=== PATIENT | female | born 1990 | race Caucasian/White ===

== ENCOUNTER 2019-11-15 20:53 | Emergency (ER) | payer MEDICAID, SELFPAY ==
[2019-11-15 21:40] VITALS: BP 99/64; PULSE 67; RESP 14; TEMP 36.7; O2SAT 97; BMI 18.3
--- NOTE | 2019-11-15 21:58 | XR_ITS ---
WS: [id number] Right hip, AP and frog leg, AP pelvis, 11/15/2019 Clinical Data: injury Comparison: Right thigh and femur, 01/24/2011. Findings: No fractures or dislocations are seen. The hip joints are intact. The soft tissues are are not remark able. The pelvis is not remarkable. The SI joints and pubic symphysis are normal XR/XR hip RT 2-3V wo/w pel* [id number] Impression: Negative right hip and pelvis.
--- NOTE | 2019-11-15 21:58 | XR_ITS ---
WS: [id number] Right shoulder, 3 views, 11/15/2019 Clinical Data: injury Comparison: None. Findings: No fractures or dislocations are seen. The AC joint is normal. The adjacent right clavicle, right sca pula and ribs are normal. The soft tissues are unremarkable. XR/XR shoulder RT min 2V* [id number] Impression: Negative right shoulder.
[2019-11-15 22:53] VITALS: RESP 18
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
[2019-11-15] MEDS: ketorolac 60 mg/2 mL INJ IM (23:09)
== END 2019-11-15 23:17 | disposition home or self-care (01) ==
PROVIDERS: Emergency Provider Physician Assistant; PCP Electrodiagnostic Medicine
DX: M25.551 Pain in right hip (principal); M25.511 Pain in right shoulder; Y04.2XXA Assault by strike against or bumped into by another person, initial encounter; Y99.0 Civilian activity done for income or pay
CPT/HCPCS: 12345; 73030; 73502; 96372; 99281; 99283; J1885

== ENCOUNTER 2019-12-11 14:15 | Emergency (ER) | payer MEDICAID, SELFPAY ==
[2019-12-11 14:17] VITALS: BP 118/68; PULSE 79; RESP 16; TEMP 36.5; O2SAT 100; BMI 18.3
--- NOTE | 2019-12-11 14:23 | XRR_ITS ---
PROCEDURE INFORMATION: Exam: XR Right Shoulder Exam date and time: 12/11/2019 2:42 PM Age: 29 years old Clinical indication: Pain; Shoulder; Right TECHNIQUE: Imaging protocol: XR Right shoulder. Views: 2 or more views. COMPARISON: CR XR shoulder RT min 2V* [id number] 11/15/2019 10:07 PM FINDINGS: Bones/joints: There is no evidence for acute fracture or malalignment. Soft tissues: Normal. XR/XR shoulder RT min 2V* [id number] IMPRESSION: No acute findings.
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
[2019-12-11 15:10] VITALS: BP 102/73; PULSE 80; RESP 16; O2SAT 100
== END 2019-12-11 15:10 | disposition home or self-care (01) ==
PROVIDERS: Emergency Provider Family Medicine; PCP Electrodiagnostic Medicine
DX: M54.10 Radiculopathy, site unspecified (principal); F17.290 Nicotine dependence, other tobacco product, uncomplicated
CPT/HCPCS: 12345; 73030; 99281; 99282

== ENCOUNTER 2019-12-25 11:31 | Emergency (ER) | payer MEDICAID, SELFPAY ==
[2019-12-25 11:54] VITALS: BP 116/81; PULSE 75; RESP 14; TEMP 36.8; O2SAT 100; BMI 18.3
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
[2019-12-25 13:04] VITALS: PULSE 68; RESP 16; O2SAT 100
[2019-12-25 14:10] VITALS: PULSE 84; RESP 16; O2SAT 100
== END 2019-12-25 14:10 | disposition home or self-care (01) ==
PROVIDERS: Emergency Provider Nurse Practitioner Family; PCP Electrodiagnostic Medicine
DX: S60.012A Contusion of left thumb without damage to nail, initial encounter (principal); F17.200 Nicotine dependence, unspecified, uncomplicated; V89.2XXA Person injured in unspecified motor-vehicle accident, traffic, initial encounter
CPT/HCPCS: 12345; 73130; 99281; 99283

== ENCOUNTER 2020-01-11 22:11 | Emergency (ER) | payer MEDICAID, SELFPAY ==
[2020-01-11 22:31] VITALS: BP 102/60; PULSE 74; RESP 14; TEMP 36.5; O2SAT 100; BMI 18.3
--- NOTE | 2020-01-11 22:37 | ED_ITS ---
HPI - Extremity Problem General: Chief complaint: Extremity Injury, Lower Stated complaint: R LEG PAIN Time Seen by Provider: 01/11/20 22:37 Source: patient Mode of arrival: ambulatory Limitations: no limitations History of Present Illness: HPI Narrative: Patient comes in for injury to the right lower extremity and the left knee. Patient reports she was climbing on a gate and the cow hit the gait pitting her legs between the gate and wall. Patient appears well. Patient reports pain and difficulty ambulating on it due to pain. Complaint: extremity pain Review of Systems General: Reports: 10 or more systems reviewed and unremarkable except in HPI and below Musc: Reports: extremity pain PFS ED PFSH: Social History Smoking and tobacco status: light tobacco smoker e-cigarettes Physical Exam Const: COMMON NORMALS: no acute distress and patient oriented x3 GENERAL APPEARANCE: cooperative HENMT: COMMON NORMALS: normocephalic and Normal external nose present HEAD & SCALP: normal to inspection and normocephalic NOSE: Normal external nose present Eye: GENERAL EYE: appearance normal, both eyes and all related structures Neck/C-Spine: COMMON NORMALS: full ROM Chest: COMMONS NORMALS: normal inspection of the chest Resp: COMMON NORMALS: normal respiratory effort EFFORT & INSPECTION: Yes able to speak in complete sentences Cardio: COMMON NORMALS: regular rate and regular rhythm RATE: regular rate RHYTHM: regular rhythm GI: COMMON NORMALS: non-tender Back/Pelvis: COMMON NORMALS: thoracic and lumbar spine normal to inspection Extremity: NARRATIVE EXTREMITY EXAM: Patient has an area of ecchymosis approximately 4 cm to the lateral right thigh, a 6 cm area of ecchymosis to the right medial calf, and an abrasion with a 3 cm area of ecchymosis to the left anterior knee. Patient has range of motion but reports pain with movement of the both legs. Patient has been ambulatory on the extremities. Neuro: COMMON NORMALS: patient oriented x3 and moves all extremities Psych: COMMON NORMALS: mental status grossly normal and cooperative Skin: COMMON NORMALS: no rashes or lesions noted GENERAL SKIN EXAM: no rashes or lesions noted Course Vital Signs: Vital signs: Vital Signs Temperature 97.7 F 01/11/20 22:31 Pulse Rate 74 01/11/20 22:41 Respiratory Rate 14 01/11/20 22:41 Blood Pressure 102/60 01/11/20 22:41 Pulse Oximetry 100 01/11/20 22:41 MDM - Extremity (Nontraumatic) MDM Narrative: Medical decision making narrative: Patient comes in today for evaluation of injury sustained when a cow trapped her between a gate. Patient has bruising to bilateral extremities on the lateral right thigh, medial right calf, and the patellar region of the left knee. Patient moves extremities well. Patient does report pain with ambulation. Differential diagnosis includes contusion, fracture, sprain. X-rays were negative for any fractures. Patient has contusions to bilateral legs. Reviewed exam with patient with recommendations for treatment and follow-up. Patient reported understanding. Discharge Plan Discharge Patient Disposition: Home Clinical Impression: Contusion of multiple sites Condition: Stable Prescriptions: No Action fluticasone propionate [Flonase Allergy Relief] 50 mcg/actuation spray,suspe nsion 2 spray INTRANASAL DAILY Qty: 16 RF: 0 diclofenac sodium 75 mg tablet,delayed release (DR/EC) 75 mg PO Q12H PRN (Reason: pain) Qty: 20 RF: 0 Medrol (Naveed) 4 mg tablets,dose pack See Rx Instructions .ROUTE .COMPLEX Qty: 21 RF: 0 tizanidine 4 mg capsule 4 mg PO Q6H PRN (Reason: muscle spasticity) Qty: 20 RF: 0 Discharge Orders: Discharge Order (Routine); Ordered 01/11/20 Ordered By: Vikas Almonte Referrals: Jonnie Sotelo DO [Primary Care Provider] - Patient Instructions: Contusion in Adults (ED) Activity Restrictions/Additional Instructions: Activity as tolerated. Ice or heat for discomfort. Acetaminophen and ibuprofen for pain. Follow-up with primary care for further treatment. Return to the emergency department for new concerns. Discharge Date/Time: 01/11/20 23:39 Coding Level of Care Code ED Staff Registered Nurse for Cecilia Fwmorenita Exam Comprehensive
[2020-01-11 22:41] VITALS: BP 102/60; PULSE 74; RESP 14; O2SAT 100
--- NOTE | 2020-01-11 22:43 | XR_ITS ---
WS: [id number] Left knee, 3 views, 01/11/2020 Clinical Data: injury Comparison: Left knee, 06/10/2012. Findings: No fractures or dislocations are seen. The joint spaces are normal. The patella is intact. The soft t issues are unremarkable. XR/XR knee LT 3V* [id number] Impression: Negative left knee.
--- NOTE | 2020-01-11 22:43 | XR_ITS ---
WS: [id number] Right leg including the tibia and fibula, AP and lateral, 01/11/2020 Clinical Data: injury Comparison: None. Findings: No fractures or dislocations are seen. The tibia and fibula are intact. The soft tissues are normal. XR/XR tibia fibula RT 2V [id number] Impression: Negative for fracture.
--- NOTE | 2020-01-11 22:43 | XR_ITS ---
WS: [id number] Right femur and thigh, AP and lateral, 01/11/2020 Clinical Data: injury Comparison: None. Findings: No fractures or dislocations are seen. The soft tissues are normal. The visualized knee shows no abno rmalities. The right hip is normal. XR/XR femur RT min 2V* [id number] Impression: Negative right femur and thigh.
== END 2020-01-11 23:39 | disposition home or self-care (01) ==
PROVIDERS: Emergency Provider Nurse Practitioner Family; PCP Electrodiagnostic Medicine
DX: S70.11XA Contusion of right thigh, initial encounter (principal); S80.11XA Contusion of right lower leg, initial encounter; S80.02XA Contusion of left knee, initial encounter; W23.0XXA Caught, crushed, jammed, or pinched between moving objects, initial encounter; F17.290 Nicotine dependence, other tobacco product, uncomplicated
CPT/HCPCS: 12345; 73552; 73562; 73590; 99281; 99282

== ENCOUNTER 2020-01-28 19:30 | Emergency (ER) | payer MEDICAID, SELFPAY ==
[2020-01-28 19:38] VITALS: BP 105/71; PULSE 66; RESP 14; TEMP 36.9; O2SAT 97; BMI 17.4
[2020-01-28 21:09] VITALS: BP 102/65; PULSE 74; RESP 18; O2SAT 99
--- NOTE | 2020-01-28 21:19 | W.ED.GENADLT ---
HPI - General Adult General: Chief complaint: General Medical Stated complaint: RASH Time Seen by Provider: 01/28/20 20:10 Source: patient Mode of arrival: ambulatory Limitations: no limitations History of Present Illness: HPI narrative: No new clothes, lotions, soaps, or anything else. She denies any difficulty breathing or throat closing. complaint: rash Onset (ago): day(s) (1) Location: abdomen and lower extremity Radiation: non-radiation Severity: mild Quality: other (itching) Pain Consistency: constant Relieving factors: none Exacerbating factors: none Associated symptoms: Reports rash; Deny chest pain, confusion, cough, diaphoresis, decreased appetite, dyspnea, fevers/chills, headache(s), malaise, nausea, palpitations, seizures, short of breath, syncope, vomiting or weakness Treatments prior to arrival: other (benadryl) Review of Systems General: Reports: 10 or more systems reviewed and unremarkable except in HPI and below Const: Denies: malaise or diaphoresis Eyes: Denies: change in vision or blurry vision ENMT: Denies: throat pain, enlarged tonsils, odynophagia, hoarseness, mouth pain or swelling of lips/tongue Card: Denies: chest pain, palpitations or syncope Resp: Denies: dyspnea GI: Denies: nausea or vomiting : Denies: flank pain, difficulty voiding, dysuria, urinary frequency, urinary urgency or urinary hesitancy Musc: Denies: neck pain, back pain or extremity swelling Skin/Breast: Reports: rash Neuro: Denies: headache(s) or confusion Endo: Denies: polyuria, polydipsia or tired all the time [facility] ED PFSH: Social History Smoking and tobacco status: light tobacco smoker e-cigarettes Physical Exam Const: COMMON NORMALS: no acute distress, average body habitus, patient oriented x3, no limitations, healthy appearing, alert and well nourished HENMT: COMMON NORMALS: normocephalic, atraumatic and moist oral mucous membranes HEAD & SCALP: normocephalic and atraumatic Neck/C-Spine: COMMON NORMALS: no meningeal signs and no JVD Resp: COMMON NORMALS: normal respiratory effort, No retractions, No use of accessory muscles, clear to auscultation bilaterally and percussion normal AUSCULTATION: clear to auscultation bilaterally PERCUSSION: percussion normal Cardio: COMMON NORMALS: no JVD, regular rate, regular rhythm, S1 normal heart sound present, S2 normal heart sound present, No gallops present (Cardio), No clicks present (Cardio), No murmurs present (Cardio), No rub (Cardio) and Peripheral pulses 2+ throughout RATE: regular rate RHYTHM: regular rhythm HEART SOUNDS: S1 normal heart sound present and S2 normal heart sound present PERIPHERAL PULSES: Peripheral pulses 2+ throughout GI: COMMON NORMALS: Normal to inspection, nondistended, normoactive bowel sounds present, Soft to palpation, non-tender, No hepatosplenomegaly present, no masses and no bruits PALPATION: Yes Soft to palpation and Yes No hepatosplenomegaly present Extremity: COMMON NORMALS: normal to inspection, full ROM, capillary refill normal, no calf tenderness and no pedal edema Neuro: COMMON NORMALS: patient oriented x3 SENSORIUM/ORIENTATION: Yes alert MENINGEAL SIGNS: Yes no meningeal signs Skin: COMMON NORMALS: no rashes or lesions noted, no wounds, turgor normal, no jaundice, no petechiae and no mottling GENERAL SKIN EXAM: no rashes or lesions noted and turgor normal Course ED course: Patient with clinical features of contact dermatitis that is uncomplicated. She is given a dose of oral corticosteroid today and discharged home on the same. Vital Signs: Vital signs: Vital Signs Temperature 98.4 F 01/28/20 19:38 Pulse Rate 93 01/28/20 21:29 Respiratory Rate 14 01/28/20 21:29 Blood Pressure 122/89 01/28/20 21:29 Pulse Oximetry 100 01/28/20 21:29 MDM - General Adult MDM Narrative: Medical decision making narrative: The patient who came to the ED with clinical features consistent with contact dermatitis and she is discharged home on oral steroids. Medical Records: Attestation: I reviewed the patient's medical records. Discharge Plan Discharge Patient Disposition: Home Clinical Impression: Contact dermatitis Qualifiers: Contact dermatitis type: unspecified Contact dermatitis trigger: unspecified trigger Qualified Code(s): L25.9 - Unspecified contact dermatitis, unspecified cause Condition: Stable Prescriptions: New prednisone 20 mg tablet 60 mg PO DAILY 5 Days Qty: 15 RF: 0 Continued fluticasone propionate [Flonase Allergy Relief] 50 mcg/actuation spray,suspension 2 spray INTRANASAL DAILY Qty: 16 RF: 0 diclofenac sodium 75 mg tablet,delayed release (DR/EC) 75 mg PO Q12H PRN (Reason: pain) Qty: 20 RF: 0 tizanidine 4 mg capsule 4 mg PO Q6H PRN (Reason: muscle spasticity) Qty: 20 RF: 0 Discontinued methylprednisolone [Medrol (Naveed)] 4 mg tablets,dose pack See Rx Instructions .ROUTE .COMPLEX Qty: 21 RF: 0 Discharge Orders: Discharge Order (Routine); Ordered 01/28/20 Ordered By: Luis Sheehan Referrals: Jonnie Sotelo, [Primary Care Provider] - 1-3 days Discharge Diet: Usual diet Discharge Activity: Increase activity as tolerated Patient Instructions: Dermatitis (Contact) Activity Restrictions/Additional Instructions: Return for any new or worsening symptoms. Follow up with your primary care provider within 3 days. Take the medications as prescribed. Discharge Date/Time: 01/28/20 21:30 Coding Level of Care Code ED Lay Out Machine Operator for Chg Fwd Exam Comprehensive
[2020-01-28] MEDS: predniSONE 20 mg Tablet 60 MG PO (21:25)
[2020-01-28 21:29] VITALS: BP 122/89; PULSE 93; RESP 14; O2SAT 100
== END 2020-01-28 21:30 | disposition home or self-care (01) ==
PROVIDERS: Emergency Provider Family Medicine; PCP Electrodiagnostic Medicine
DX: L25.9 Unspecified contact dermatitis, unspecified cause (principal); F17.290 Nicotine dependence, other tobacco product, uncomplicated
CPT/HCPCS: 12345; 99281; 99282; J7512

== ENCOUNTER 2020-04-07 13:36 | Emergency (ER) | payer BC, MEDICAID, SELFPAY ==
[2020-04-07 13:43] VITALS: BP 98/67; PULSE 78; RESP 14; TEMP 36.3; O2SAT 99
--- NOTE | 2020-04-07 13:53 | W.ED.NECK ---
HPI - Neck Pain/Injury General: Chief Complaint: Neck Pain/Injury Stated Complaint: neck pain, 2 days now Time Seen by Provider: 04/07/20 13:45 History of Present Illness: HPI Narrative: Patient complains about left shoulder pain trapezius pain. Just woke up with it that way couple days ago it is been sore. She is put a couple lidocaine patches on his helps denies any other problems injuries left eye is doing fine. complaint: upper back pain Onset (ago): day(s) Radiation: left shoulder Severity: mild Severity scale (1-10): 4 Quality: dull and aching Duration: constant Relieving factors: none Exacerbating factors: movement of neck Associated symptoms: Reports no associated symptoms; Denies headache(s) or nausea Treatments prior to arrival: other (Lidocaine patches) Review of Systems Const: Denies: fever(s), chills or body aches Eyes: Denies: change in vision or blurry vision ENMT: Denies: throat pain or nasal congestion Card: Denies: chest pain or dyspnea on exertion Resp: Denies: dyspnea, productive cough or non-productive cough GI: Denies: abdominal pain, nausea or vomiting Musc: Reports: neck pain and other (Shoulder pain left side); Denies: extremity pain Skin/Breast: Denies: rash Neuro: Denies: headache(s) Psych: Denies: anxiety or depression Suman/Lymph: Denies: easy bruising PFSH ED PFSH: Social History Smoking and tobacco status: former smoker Physical Exam Const: COMMON NORMALS: no acute distress Neck/C-Spine: CERVICAL SPINE: Yes pain with cervical ROM (Pulls in the left shoulder) with lateral flexion to the right, with lateral flexion to the left, with rotation to the right and with rotation to the left OTHER: Left trapezius is tender from the scapula to the AC area up to the base of neck Psych: COMMON NORMALS: mental status grossly normal Course Vital Signs: Vital signs: Vital Signs Temperature 97.3 F L 04/07/20 13:43 Pulse Rate 78 04/07/20 13:43 Respiratory Rate 14 04/07/20 13:43 Blood Pressure 98/67 04/07/20 13:43 Pulse Oximetry 99 04/07/20 13:43 Discharge Plan Discharge Condition: Good Prescriptions: No Action fluticasone propionate [Flonase Allergy Relief] 50 mcg/actuation spray,suspension 2 spray INTRANASAL DAILY Qty: 16 RF: 0 Control Pill PO RF: 0 cephalexin 500 mg capsule 500 mg PO Q12H Qty: 14 RF: 0 prednisone 20 mg tablet 40 mg PO DAILY 5 Days Qty: 10 RF: 0 Coding Level of Care Code ED Student Ministry Pastor for Cecilia Pierre
[2020-04-07 14:13] VITALS: RESP 16
--- NOTE | 2020-04-07 14:35 | PC.NURSE ---
Read and agree with assessment.
== END 2020-04-07 14:13 | disposition home or self-care (01) ==
PROVIDERS: Emergency Provider Nurse Practitioner Family; PCP Electrodiagnostic Medicine
DX: M25.512 Pain in left shoulder (principal); Z87.891 Personal history of nicotine dependence
CPT/HCPCS: 12345; 99281

== ENCOUNTER 2020-10-01 19:30 | Emergency (ER) | payer BC, MEDICAID, SELFPAY ==
[2020-10-01 19:49] VITALS: BP 99/66; PULSE 97; RESP 18; TEMP 36.7; O2SAT 98; BMI 20.7
[2020-10-01 20:12] VITALS: BP 107/68; PULSE 74; RESP 15; O2SAT 98
[2020-10-01 20:39] LABS: SARS Covid-2 Antigen Negative (Negative)
[2020-10-01 20:46] LABS: Basophils % 0.5 %; Eosinophils # 0.1 10^3/uL (0.0-0.8); Eosinophils % 0.6 %; Hematocrit 37.1 % (37.0-47.0); Lymphocytes # 1.2 10^3/uL (0.8-4.8); Lymphocytes % 14.1 %; Mean Corpuscular HGB Conc 32.3 g/dL (30.0-36.0); Mean Corpuscular Hemoglobin 27.7 pg (28.0-34.0); Mean Corpuscular Volume 85.7 fL (81-99); Mean Platelet Volume 10.6 fL (7.4-10.4); Monocytes # 0.6 10^3/uL (0.2-0.9); Monocytes % 6.9 %; Neutrophils # 6.84 10^3/uL (1.8-7.7); Neutrophils % 77.7 %; Nucleated Red Blood Cells % 0 %; Platelet Count 258 10^3/cmm (130-400); Red Blood Count 4.33 10^6/uL (4.1-5.3); Red Cell Distribution Width 13.5 % (12.1-15.1); White Blood Count 8.8 10^3/uL (4.0-10.0)
--- NOTE | 2020-10-01 20:50 | PC.NURSE ---
Verbal orders from Dr. Sheehan COVID precautions may be discontinued.
[2020-10-01] MEDS: sodium chloride 0.9% 1,000 ML 999 ML IV (20:54)
[2020-10-01] MEDS: promethazine 25 mg/mL SDV 1 mL IM (20:54)
[2020-10-01 20:58] VITALS: BP 99/74; PULSE 79; RESP 16; O2SAT 100
[2020-10-01 21:03] LABS: Alanine Aminotransferase 7 U/L (0-33); Albumin Level 4.2 g/dL (3.5-5.2); Alkaline Phosphatase 69 IU/L (35-105); Anion Gap 16.9 (5-19); Aspartate Amino Transferase 12 U/L (0-32); Blood Urea Nitrogen 7 mg/dL (6-20); C Reactive Protein 8.1 mg/L (0.0-4.9); Calcium 9.1 mg/dL (8.5-10.5); Carbon Dioxide 21 mmol/L (22-29); Chloride 101 mmol/L (98-107); Creatine Phosphokinase 53 U/L (26-192); Globulin 2.7 g/dL (1.3-4.6); Glomerular Filtration Rate 264.9 mL/min (90-130); Glucose 76 mg/dL (65-115); Osmolality Calculated 277 mOsm/kg (285-295); Potassium 3.9 mmol/L (3.5-5.1); Sodium 135 mmol/L (136-145); Total Bilirubin 0.6 mg/dL (0.15-1.2); Total Protein 6.9 g/dL (6.6-8.7)
--- NOTE | 2020-10-01 21:08 | W.ED.NAVMDI ---
HPI - Nausea/Vomiting/Diarrhea General: Chief complaint: Nausea/Vomiting/Diarrhea Stated complaint: \ Possible Covid Time Seen by Provider: 10/01/20 19:57 Source: patient and RN notes reviewed Mode of arrival: ambulatory Limitations: no limitations History of Present Illness: HPI Narrative: Patient is a 29-year-old female who is 11 weeks who presents to the emergency department with nausea and vomiting that started from about midnight early this morning. She has had multiple episodes of vomiting and is unable to keep anything down. 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 She got tested for COVID-19 earlier today but results are not available yet MD elicited complaint: nausea, vomiting and abdominal pain Onset (ago): hour(s) (20) Description of vomiting: food contents Associated nausea: Yes Associated abdominal pain: Yes Location of pain: RLQ Pain consistency: constant Exacerbating factors: none Relieving factors: none Associated symtoms: Reports nausea; Denies altered mental status, anxiety, bloating, change in vision, chest pain, cough, diaphoresis, decreased urine output, dizziness, dysuria, epistaxis, fatigue, fecal incontinence, fevers/chills, headache(s), anorexia, malaise, myalgias, numbness, palpitations, rash, short of breath, syncope, tenesmus, tinnitus or weakness Review of Systems General: Reports: 10 or more systems reviewed and unremarkable except in HPI and below Const: Denies: fatigue, malaise or diaphoresis Eyes: Denies: change in vision ENMT: Denies: tinnitus or epistaxis Card: Denies: chest pain, palpitations or syncope GI: Reports: nausea; Denies: bloating or fecal incontinence : Denies: dysuria Neuro: Denies: headache(s) or dizziness Psych: Denies: anxiety PFSH ED PFSH: Social History Smoking and tobacco status: former smoker Physical Exam Const: COMMON NORMALS: no acute distress, average body habitus, patient oriented x3, no limitations, healthy appearing, alert and well nourished EXAM LIMITATIONS: no altered mental status HENMT: COMMON NORMALS: normocephalic, atraumatic and moist oral mucous membranes HEAD & SCALP: normocephalic and atraumatic Eye: COMMON NORMALS: Equal, round and reactive pupils present, EOMs intact bilaterally, conjunctivae normal and no scleral icterus CONJUNCTIVA: Yes conjunctivae normal PUPIL: Yes Equal, round and reactive pupils present Neck/C-Spine: COMMON NORMALS: no meningeal signs and no JVD Resp: COMMON NORMALS: normal respiratory effort, No retractions, No use of accessory muscles, clear to auscultation bilaterally and percussion normal AUSCULTATION: clear to auscultation bilaterally PERCUSSION: percussion normal Cardio: COMMON NORMALS: no JVD, regular rate, regular rhythm, S1 normal heart sound present, S2 normal heart sound present, No gallops present (Cardio), No clicks present (Cardio), No murmurs present (Cardio), No rub (Cardio) and Peripheral pulses 2+ throughout RATE: regular rate RHYTHM: regular rhythm HEART SOUNDS: S1 normal heart sound present and S2 normal heart sound present PERIPHERAL PULSES: Peripheral pulses 2+ throughout GI: COMMON NORMALS: Normal to inspection, nondistended, normoactive bowel sounds present, Soft to palpation, non-tender, No hepatosplenomegaly present, no masses and no bruits PALPATION: Yes Soft to palpation and Yes No hepatosplenomegaly present Extremity: COMMON NORMALS: normal to inspection, full ROM, capillary refill normal, no calf tenderness and no pedal edema Neuro: COMMON NORMALS: patient oriented x3 SENSORIUM/ORIENTATION: Yes alert MENINGEAL SIGNS: Yes no meningeal signs Skin: COMMON NORMALS: no rashes or lesions noted, no wounds, turgor normal, no jaundice, no petechiae and no mottling GENERAL SKIN EXAM: no rashes or lesions noted and turgor normal Course Reevaluation(s): Reevaluation #1: Discussed her lab and imaging findings with her. Rapid Covid test was negative. Lab findings are unremarkable. Inflammatory markers only mildly elevated. We will treat as a case of a nonspecific viral illness or nonspecific case of nausea and vomiting. Phenergan has helped with her vomiting. We will discharge her home with a prescription for Phenergan. She voiced understanding and is in agreement with the plan. Time: 21:25 Vital Signs: Vital signs: Vital Signs Temperature 98.1 F 10/01/20 19:49 Pulse Rate 74 10/01/20 22:05 Respiratory Rate 15 10/01/20 22:05 Blood Pressure 99/69 10/01/20 22:05 Pulse Oximetry 100 10/01/20 22:05 MDM - Nausea/Vomiting/Diarrhea MDM Narrative: Medical decision making narrative: 29-year-old female patient who is about 11 weeks and who presents to the emergency department with nausea and vomiting that has been going on since last night. Rapid Covid test was negative, labs are unremarkable. She was given a liter of normal saline and intramuscular promethazine which resolved her symptoms. She is discharged home with a prescription for promethazine. Medical Records: Attestation: I reviewed the patient's medical records. Lab Data: Attestation: I reviewed the patient's lab results. Labs: Lab Results 10/01/20 10/01/20 10/01/20 Range/Units 20:06 20:41 20:41 WBC 8.8 (4.0-10.0) 10^3/ uL RBC 4.33 (4.1-5.3) 10^6/u L Hgb 12.0 (11.5-15.3) g/dL Hct 37.1 (37.0-47.0) % MCV 85.7 (81-99) fL MCH 27.7 L (28.0-34.0) pg MCHC 32.3 (30.0-36.0) g/dL RDW 13.5 (12.1-15.1) % Plt Count 258 (130-400) 10^3/c mm MPV 10.6 H (7.4-10.4) fL Neut % (Auto) 77.7 % Lymph % (Auto) 14.1 % [place] % (Auto) 6.9 % Eos % (Auto) 0.6 % Baso % (Auto) 0.5 % Neut # (Auto) 6.84 (1.8-7.7) 10^3/u L Lymph # (Auto) 1.2 (0.8-4.8) 10^3/u L [place] # (Auto) 0.6 (0.2-0.9) 10^3/u L Eos # (Auto) 0.1 (0.0-0.8) 10^3/u L Baso # (Auto) 0.0 (0.0-0.1) 10^3/u L Nucleated RBC % (a uto) 0 % Nucleated RBCs # 0.0 /100WBC Sodium 135 L (136-145) mmol/L Potassium 3.9 (3.5-5.1) mmol/L Chloride 101 (98-107) mmol/L Carbon Dioxide 21 L (22-29) mmol/L Anion Gap 16.9 (5-19) BUN 7 (6-20) mg/dL Creatinine 0.3 L (0.5-0.9) mg/dL GFR Calculation 264.9 H (90-130) mL/min Glucose 76 (65-115) mg/dL Calculated Osmolal ity 277 L (285-295) mOsm/k g Calcium 9.1 (8.5-10.5) mg/dL Total Bilirubin 0.6 (0.15-1.2) mg/dL AST 12 (0-32) U/L ALT 7 (0-33) U/L Alkaline Phosphata se 69 (35-105) IU/L Creatine Kinase 53 (26-192) U/L C-Reactive Protein 8.1 H (0.0-4.9) mg/L Total Protein 6.9 (6.6-8.7) g/dL Albumin 4.2 (3.5-5.2) g/dL Globulin 2.7 (1.3-4.6) g/dL Procalcitonin 0.03 (0-0.5) ng/mL SARS-CoV-2 Ag (Rap id) Negative (Negative) Discharge Plan Discharge Patient Disposition: Home Clinical Impression: Nausea & vomiting Qualifiers: Vomiting type: unspecified Vomiting Intractability: non-intractable Qualified Code(s): R11.2 - Nausea with vomiting, unspecified Condition: Stable Prescriptions: New promethazine 25 mg tablet 25 mg PO Q6H PRN (Reason: nausea and vomiting) Qty: 20 RF: 0 Continued fluticasone propionate 50 mcg/actuation [place],Suspension 1 spray INTRANASAL BID RF: 0 400 mcg Tablet,Chewable 1 tab PO DAILY RF: 0 albuterol sulfate [ProAir HFA] 90 mcg/actuation HFA aerosol inhaler 2 puff INHALATION Q4H PRN (Reason: Shortness Of Breath) RF: 0 Discharge Orders: Discharge ED (Routine); Ordered 10/01/20 Ordered By: Luis Sheehan Referrals: Jonnie Sotelo, [Primary Care Provider] - 1-3 days Discharge Diet: Usual diet Discharge Activity: Increase activity as tolerated Patient Instructions: Acute Nausea and Vomiting (ED) Activity Restrictions/Additional Instructions: Return for any new or worsening symptoms. Follow-up with your primary care provider within 3 days. Take the promethazine as needed for nausea or vomiting. Drink plenty of water to keep well-hydrated. Coding Level of Care Code ED Physical Therapy Coordinator for Chg Fwd Exam Comprehensive
[2020-10-01 21:10] LABS: Procalcitonin 0.03 ng/mL (0-0.5)
[2020-10-01 22:05] VITALS: BP 99/69; PULSE 74; RESP 15; O2SAT 100
== END 2020-10-01 22:07 | disposition home or self-care (01) ==
PROVIDERS: Nurse Practitioner Family; Emergency Provider Family Medicine; PCP Electrodiagnostic Medicine
DX: R11.2 Nausea with vomiting, unspecified (principal); Z87.891 Personal history of nicotine dependence; Z20.822 Contact with and (suspected) exposure to COVID-19
CPT/HCPCS: 80053; 82550; 84145; 85025; 86140; 87426; 96360; 96372; 99284; J2550; J7030

== ENCOUNTER → 2020-10-11 13:47 | Outpatient (BNVA) | payer BC, MEDICAID, SELFPAY | PROVIDERS: PCP Electrodiagnostic Medicine; Visit Provider Nurse Practitioner Women's Health | DX: Z34.90 Encounter for supervision of normal pregnancy, unspecified, unspecified trimester (principal) | CPT/HCPCS: 81000 ==

== ENCOUNTER → 2020-10-31 08:02 | Outpatient (BNVA) | payer BC, MEDICAID, SELFPAY | PROVIDERS: PCP Electrodiagnostic Medicine; Visit Provider Obstetrics & Gynecology | DX: O09.899 Supervision of other high risk pregnancies, unspecified trimester (principal) | CPT/HCPCS: 80307; 81000; 84443; 86803 ==

== ENCOUNTER → 2020-11-06 10:11 | Outpatient (BNVA) | payer BC, MEDICAID, SELFPAY | PROVIDERS: PCP Electrodiagnostic Medicine; Visit Provider Nurse Practitioner Women's Health | DX: O09.899 Supervision of other high risk pregnancies, unspecified trimester (principal); Z3A.00 Weeks of gestation of pregnancy not specified | CPT/HCPCS: 81000 ==

== ENCOUNTER 2020-11-19 18:11 | Emergency (ER) | payer BC, MEDICAID, SELFPAY ==
[2020-11-19 19:04] VITALS: BP 105/67; PULSE 90; RESP 16; TEMP 36.8; O2SAT 100; BMI 21.4
--- NOTE | 2020-11-19 19:17 | USR_ITS ---
NOTE: Report was unsigned for reason: Order was edited. Original Signature date and time was: 11/19/20202033 PROCEDURE INFORMATION: Exam: US , Limited Exam date and time: 11/19/2020 7:17 PM Age: 30 years old Clinical indication: complicated by abdominal or pelvic pain; Right lower quadrant; Second trimester (14 weeks 0 days to 27 weeks 6 days); Gestational age or lmp: 17 w 1 d; ; Additional info: Cramping TECHNIQUE: Imaging protocol: Real-time ultrasound of the maternal uterus with image documentation. Exam focused on the clinical indication. COMPARISON: [place]etal[place]PP/[place] [id number] 06/15/2016 8:36 AM FINDINGS: Gestation: Live intrauterine gestation with heart rate at 141 bpm. lie: Cephalic lie Placenta: Anterior placenta, low lying. MATERNAL: Cervix: Cervical length measures 4.2 cm. [facility] US/US OB >= 14 weeks fetus [id number] IMPRESSION: 1. Live intrauterine gestation. 2. Low lying placenta.
--- NOTE | 2020-11-19 19:18 | W.ED.ABDPA2 ---
HPI - Abdominal Pain General: Chief Complaint: Abdominal Pain Stated Complaint: 18 wks cramping Time Seen by Provider: 11/19/20 19:17 History of Present Illness: HPI narrative: 30-year-old female comes in with right flank pain. Patient is 18 weeks . Patient denies any vaginal bleeding or discharge. Patient reports no movement that she is noted at this time. Patient reports symptoms started in the last 2 days. Patient does report some urinary difficulty. Related Data: Date of Last Menstrual Period: 07/17/20 Review of Systems General: Reports: 10 or more systems reviewed and unremarkable except in HPI and below : Reports: flank pain PFSH ED PFSH: Medical History No pertinent past medical history Neg hx: HTN, DM, throid, DVT/PE PCP: Dr. Sotelo Surgical History H/O myringotomy with tube placement - x2-as an : performed in [place] History of delivery 06/16/2016 - Low transverse section. Diagnosis: Cephalopelvic disproportion with contracted inlet. Performed by Dr. Roberto Kuo at [facility] in [place], [place]. Documented low transverse section with 2 layer closure of uterine incision. Right-sided inferior extension of the uterine incision. History of knee surgery 2012 - Right [place], [place] History of laparoscopy 02/18/2017: Hysteroscopy, dilation and curettage, diagnostic laparoscopy with lysis of adhesions on 02/18/2017 for chronic pelvic pain [place] [facility] [place] On hysteroscopy no abnormalities identified-curettage done-pathology pending. On laparoscopy filmy adhesions of the colon onto the left lower quadrant which was taken down. No other abnormalities noted. Uterus, tubes and ovaries appeared within normal limits. No signs of endometriosis. -Pathology on D&C showed polypoid endometrial mucosal fragments with weakly proliferative endometrium and scattered chronic inflammatory cells-mild chronic endometritis. History of left knee surgery 2012 - [place], [place] History of tonsillectomy and adenoidectomy as an - Performed in [place] Family History Grandfather Cancer Liver cancer Family/Other Cancer Grandmother Hypertension Denies family history of Diabetes CAD (coronary artery disease) Clotting disorder Dementia Hyperlipidemia Psychiatric illness Chronic kidney disease (CKD) Suicide Anesthesia complication Bleeding disorder Family history of premature coronary artery disease Lung disease Stroke Social History Smoking and tobacco status: former smoker Female Reproductive History: Date of last menstrual period: 07/17/20 Physical Exam Const: COMMON NORMALS: no acute distress and patient oriented x3 GENERAL APPEARANCE: cooperative HENMT: COMMON NORMALS: normocephalic, TM's normal bilaterally and Normal external nose present HEAD & SCALP: normal to inspection and normocephalic NOSE: Normal external nose present TYMPANIC MEMBRANE: TM's normal bilaterally MOUTH: Normal oral and palatal mucosa present THROAT: posterior oropharynx normal Eye: GENERAL EYE: appearance normal, both eyes and all related structures Neck/C-Spine: COMMON NORMALS: full ROM Lymph: LYMPHATIC: no lymphadenopathy noted Chest: COMMONS NORMALS: normal inspection of the chest Resp: COMMON NORMALS: normal respiratory effort EFFORT & INSPECTION: Yes able to speak in complete sentences Cardio: COMMON NORMALS: regular rate and regular rhythm RATE: regular rate RHYTHM: regular rhythm GI: COMMON NORMALS: Soft to palpation PALPATION: Yes Soft to palpation and Yes Tenderness to palpation present (GI) Details: RUQ : BLADDER/KIDNEY EXAM: Yes CVA tenderness on the right Back/Pelvis: COMMON NORMALS: thoracic and lumbar spine normal to inspection GENERAL BACK: Yes CVA tenderness Extremity: COMMON NORMALS: normal to inspection Neuro: COMMON NORMALS: patient oriented x3 and moves all extremities Psych: COMMON NORMALS: mental status grossly normal and cooperative Skin: COMMON NORMALS: no rashes or lesions noted GENERAL SKIN EXAM: no rashes or lesions noted Course Vital Signs: Vital signs: Vital Signs Temperature 98.2 F 11/19/20 19:04 Pulse Rate 90 11/19/20 20:36 Respiratory Rate 18 11/19/20 20:36 Blood Pressure 100/66 11/19/20 20:36 Pulse Oximetry 99 11/19/20 20:36 MDM - Abdominal Pain MDM Narrative: Medical decision making narrative: 30-year-old female comes in today with some complaints of right flank pain. Patient appears well. Patient appears in mild pain. On exam patient does have some right CVA tenderness. Abdomen is soft with mild right upper quadrant tenderness. Respirations are even lungs are clear to auscultation. Differential diagnosis includes urinary tract infection, pyelonephritis, renal calculi, abruptio placenta. Laboratory values noted a mild leukocytosis of 11,000, urinalysis was clear, CMP was unremarkable. Ultrasound of the abdomen limited noted some mild hydronephrosis to the right kidney. Ultrasound of the uterus and fetus was unremarkable except for low-lying placenta. The flank pain may be due to the patient's mild hydronephrosis which review of literature is a physiologic phenomena of as long as there is no signs of infection or renal calculi. At this time we do not see any signs of either infection or renal calculi. Recommended monitoring for fever return as needed for worsening symptoms and follow-up with SHOW OPERATIONS SUPERVISOR. Patient reports understanding and agrees to plan. Lab Data: Labs: Lab Results 11/19/20 11/19/20 11/19/20 Range/Units 19:19 19:45 19:45 WBC 11.0 H (4.0-10.0) 10^3/ uL RBC 4.18 (4.1-5.3) 10^6/u L Hgb 11.5 (11.5-15.3) g/dL Hct 35.8 L (37.0-47.0) % MCV 85.6 (81-99) fl MCH 27.5 L (28.0-34.0) pg MCHC 32.1 (30.0-36.0) g/dL RDW 13.8 (12.1-15.1) % Plt Count 272 (130-400) 10^3/c mm MPV 11.0 H (7.4-10.4) fL Neut % (Auto) 74.7 % Lymph % (Auto) 15.3 % Rolette % (Auto) 7.7 % Eos % (Auto) 1.7 % Baso % (Auto) 0.4 % Neut # (Auto) 8.23 H (1.8-7.7) 10^3/u L Lymph # (Auto) 1.7 (0.8-4.8) 10^3/u L Rolette # (Auto) 0.9 (0.2-0.9) 10^3/u L Eos # (Auto) 0.2 (0.0-0.8) 10^3/u L Baso # (Auto) 0.0 (0.0-0.1) 10^3/u L Nucleated RBC % (a uto) 0 % Nucleated RBCs # 0.0 /100WBC Sodium 136 (136-145) mmol/L Potassium 3.6 (3.5-5.1) mmol/L Chloride 101 (98-107) mmol/L Carbon Dioxide 23 (22-29) mmol/L Anion Gap 15.6 (5-19) BUN 4 L (6-20) mg/dL Creatinine 0.3 L (0.5-0.9) mg/dL GFR Calculation 263.0 H (90-130) mL/min Glucose 85 (65-115) mg/dL Calculated Osmolal ity 278 L (285-295) mOsm/k g Calcium 8.8 (8.5-10.5) mg/dL Total Bilirubin 0.3 (0.15-1.2) mg/dL AST 12 (0-32) U/L ALT 7 (0-33) U/L Alkaline Phosphata se 110 H (35-105) IU/L Total Protein 7.3 (6.6-8.7) g/dL Albumin 4.0 (3.5-5.2) g/dL Globulin 3.3 (1.3-4.6) g/dL Ser , [place] [address].00 mIU/mL Urine Color Yellow (Yellow) Urine Appearance Clear (CLEAR) Urine pH 7 (5-7) Ur Specific Gravit y 1.015 (1.005-1.030) Urine Protein Neg (Negative) Urine Glucose (UA) Norm (Normal) Urine Ketones Negative (Negative) Urine Blood Neg (Negative) Urine Nitrate Negative (Negative) Urine Bilirubin Neg (Negative) Urine Urobilinogen Norm (Negative) mg/dL Ur Leukocyte Beatriz ase Negative (Negative) Discharge Plan Discharge Patient Disposition: Home Clinical Impression: Rt flank pain, Hydronephrosis of right kidney Qualifiers: Weeks of gestation: 18 weeks Qualified Code(s): Z3A.18 - 18 weeks gestation of Condition: Stable Prescriptions: No Action fluticasone propionate 50 mcg/actuation Pelican,Suspension 1 spray INTRANASAL BID RF: 0 400 mcg Tablet,Chewable 1 tab PO DAILY RF: 0 albuterol sulfate [ProAir HFA] 90 mcg/actuation HFA aerosol inhaler 2 puff INHALATION Q4H PRN (Reason: Shortness Of Breath) RF: 0 Discharge Orders: Discharge ED (Routine); Ordered 11/19/20 Ordered By: Vikas Almonte Referrals: Jonnie Sotelo, [Primary Care Provider] - Discharge Diet: Usual diet Discharge Activity: Increase activity as tolerated Patient Instructions: Abdominal Pain (ED), Opioid Safety Activity Restrictions/Additional Instructions: Drink plenty of fluids. Use acetaminophen as needed for pain. Monitor for fever. Follow-up with primary care or SHOW OPERATIONS SUPERVISOR for further instruction and evaluation. Coding Level of Care Code ED Bias Machine Operator Helper for Chg Fwd Exam Comprehensive
--- NOTE | 2020-11-19 19:22 | USR_ITS ---
PROCEDURE INFORMATION: Exam: US Abdomen, Limited; Right Upper Quadrant Exam date and time: 11/19/2020 7:22 PM Age: 30 years old Clinical indication: Abdominal pain; Acute; ; Additional info: Right flank pain TECHNIQUE: Imaging protocol: US abdomen. Real time ultrasound with image documentation. Limited exam focused on the right upper quadrant. COMPARISON: US abdomen limited [id number] 03/10/2016 4:35 PM FINDINGS: Liver: Normal. No masses. Gallbladder: Normal. No gallstones. There is no gallbladder wall thickening. Common bile duct: Normal. No stones. No dilation. Pancreas: Visualized pancreas is unremarkable. Right kidney: Mild right hydronephrosis. US/US abdomen limited [id number] IMPRESSION: Mild right hydronephrosis.
[2020-11-19 19:31] LABS: Add Urine Microscopic? NO; Charge for UA Resulting for Rev
[2020-11-19 19:35] LABS: Bilirubin Urine Neg (Negative); Blood Urine Neg (Negative); Glucose Urine UA Norm (Normal); Ketones Urine Negative (Negative); Leukocyte Esterase Urine Negative (Negative); Nitrate Urine Negative (Negative); Protein Urine Neg (Negative); Specific Gravity, Urine 1.015 (1.005-1.030); Urine Appearance Clear (CLEAR); Urine Color Yellow (Yellow); Urobilinogen Urine Norm (Negative); pH Urine 7 (5-7)
[2020-11-19 19:58] LABS: Basophils % 0.4 %; Eosinophils # 0.2 10^3/uL (0.0-0.8); Eosinophils % 1.7 %; Hematocrit 35.8 % (37.0-47.0); Hemoglobin 11.5 g/dL (11.5-15.3); Lymphocytes # 1.7 10^3/uL (0.8-4.8); Lymphocytes % 15.3 %; Mean Corpuscular HGB Conc 32.1 g/dL (30.0-36.0); Mean Corpuscular Hemoglobin 27.5 pg (28.0-34.0); Mean Corpuscular Volume 85.6 fl (81-99); Monocytes # 0.9 10^3/uL (0.2-0.9); Monocytes % 7.7 %; Neutrophils # 8.23 10^3/uL (1.8-7.7); Neutrophils % 74.7 %; Nucleated Red Blood Cells % 0 %; Platelet Count 272 10^3/cmm (130-400); Red Blood Count 4.18 10^6/uL (4.1-5.3); Red Cell Distribution Width 13.8 % (12.1-15.1)
[2020-11-19 20:27] LABS: Alanine Aminotransferase 7 U/L (0-33); Alkaline Phosphatase 110 IU/L (35-105); Anion Gap 15.6 (5-19); Aspartate Amino Transferase 12 U/L (0-32); Blood Urea Nitrogen 4 mg/dL (6-20); Calcium 8.8 mg/dL (8.5-10.5); Carbon Dioxide 23 mmol/L (22-29); Chloride 101 mmol/L (98-107); Globulin 3.3 g/dL (1.3-4.6); Glucose 85 mg/dL (65-115); Osmolality Calculated 278 mOsm/kg (285-295); Potassium 3.6 mmol/L (3.5-5.1); Sodium 136 mmol/L (136-145); Total Bilirubin 0.3 mg/dL (0.15-1.2); Total Protein 7.3 g/dL (6.6-8.7)
[2020-11-19 20:36] VITALS: BP 100/66; PULSE 90; RESP 18; O2SAT 99
[2020-11-19 20:44] VITALS: BP 100/66; PULSE 90; RESP 18; TEMP 36.8; O2SAT 99
== END 2020-11-19 20:46 | disposition home or self-care (01) ==
PROVIDERS: Emergency Medicine; Emergency Provider Nurse Practitioner Family; PCP Electrodiagnostic Medicine
DX: O26.892 Other specified pregnancy related conditions, second trimester (principal); R10.9 Unspecified abdominal pain; O99.891 Other specified diseases and conditions complicating pregnancy; N13.30 Unspecified hydronephrosis; Z87.891 Personal history of nicotine dependence; Z3A.18 18 weeks gestation of pregnancy
CPT/HCPCS: 76705; 76805; 76815; 80053; 81003; 84702; 85025; 99283

== ENCOUNTER → 2020-12-12 13:15 | Outpatient (BNVA) | payer BC, MEDICAID, SELFPAY | PROVIDERS: PCP Electrodiagnostic Medicine; Visit Provider Obstetrics & Gynecology | DX: O09.899 Supervision of other high risk pregnancies, unspecified trimester (principal); O35.1XX0 Maternal care for (suspected) chromosomal abnormality in fetus, not applicable or unspecified; Z3A.00 Weeks of gestation of pregnancy not specified | CPT/HCPCS: 81000; 81511 ==

== ENCOUNTER → 2021-01-02 08:13 | Outpatient (BNVA) | payer BC, MEDICAID, SELFPAY | PROVIDERS: PCP Electrodiagnostic Medicine; Visit Provider Obstetrics & Gynecology | DX: O09.899 Supervision of other high risk pregnancies, unspecified trimester (principal); Z3A.00 Weeks of gestation of pregnancy not specified | CPT/HCPCS: 81000 ==

== ENCOUNTER 2021-01-22 16:09 | Outpatient (CLI) | payer BC, MEDICAID, SELFPAY ==
[2021-01-22 16:25] VITALS: BP 103/56; PULSE 85
[2021-01-22 16:30] VITALS: BMI 23.1
[2021-01-22 16:32] VITALS: RESP 16; TEMP 36.6
[2021-01-22 16:44] VITALS: BP 117/60; PULSE 81
[2021-01-22 16:54] LABS: Basophils % 0.4 %; Eosinophils # 0.2 10^3/uL (0.0-0.8); Eosinophils % 2.1 %; Hematocrit 29.7 % (37.0-47.0); Hemoglobin 8.9 g/dL (11.5-15.3); Lymphocytes % 12.5 %; Mean Corpuscular Hemoglobin 24.5 pg (28.0-34.0); Mean Corpuscular Volume 81.8 fl (81-99); Mean Platelet Volume 11.7 fL (7.4-10.4); Monocytes # 0.7 10^3/uL (0.2-0.9); Monocytes % 8.8 %; Neutrophils % 75.8 %; Nucleated Red Blood Cells % 0 %; Platelet Count 249 10^3/cmm (130-400); Red Blood Count 3.63 10^6/uL (4.1-5.3); Red Cell Distribution Width 13.8 % (12.1-15.1); White Blood Count 8.2 10^3/uL (4.0-10.0)
[2021-01-22 16:58] VITALS: BP 105/61; PULSE 71
== END 2021-01-22 17:30 | disposition home or self-care (01) ==
LOC: OPOB 16:17 → OBGYN 16:17
PROVIDERS: Obstetrics & Gynecology; PCP Electrodiagnostic Medicine; Visit Provider Obstetrics & Gynecology
DX: O99.891 Other specified diseases and conditions complicating pregnancy (principal); R42 Dizziness and giddiness
CPT/HCPCS: 36415; 59025; 85025; 99211

== ENCOUNTER → 2021-01-23 09:56 | Outpatient (BNVA) | payer BC, MEDICAID, SELFPAY | PROVIDERS: PCP Electrodiagnostic Medicine; Visit Provider Obstetrics & Gynecology | DX: O99.019 Anemia complicating pregnancy, unspecified trimester (principal); D64.9 Anemia, unspecified; Z3A.00 Weeks of gestation of pregnancy not specified | CPT/HCPCS: 82728; 82746; 83021; 83550 ==

== ENCOUNTER 2021-01-28 12:09 | Outpatient (CLI) | payer BC, MEDICAID, SELFPAY ==
[2021-01-28] VITALS (16 sets, daily range): BP systolic 96–109; BP diastolic 56–66; PULSE 72–100; RESP 18; TEMP 36.8–37.3
--- NOTE | 2021-01-28 12:50 | US_ITS ---
WS: [id number] ULTRASOUND OB FOCUSED HISTORY: VAGINAL BLEEDING evaluate position of placenta. COMPARISON: 12/06/2020 Single intrauterine gestation in vertex presentation. Cervix is closed at 4.1 cm. heart rate at 141 BPM. Placenta is anterior and grade 1. Placenta ends well above the internal cervical os. There is no abru ption or previa. US/US OB limited [id number] IMPRESSION: Anterior placenta with no abruption or previa.
--- NOTE | 2021-01-28 14:09 | P.PCN_ITS ---
Procedure/Consent Procedure Narrative: NONSTRESS TEST: [place] [facility] [place] Indication: 30-year-old 2 para 1-0-0-1 at 27 weeks gestation, vaginal bleeding and contractions Date and time of test: 01/28/2021, 3:30 PM Baseline: 140 Variability: Moderate variability Accelerations: Accelerations present Decelerations: No decelerations Tocometry: no Contractions INTERPRETATION: NST reactive, continue kick counts
[2021-01-28] MEDS: lactated ringers 1,000 ML 999 ML IV (14:36)
== END 2021-01-28 15:55 | disposition home or self-care (01) ==
LOC: OPOB 12:18 → OBGYN 12:18
PROVIDERS: PCP Electrodiagnostic Medicine; Visit Provider Obstetrics & Gynecology
DX: O46.90 Antepartum hemorrhage, unspecified, unspecified trimester (principal)
CPT/HCPCS: 76815; 96360

== ENCOUNTER → 2021-01-31 13:24 | Outpatient (BNVA) | payer BC, MEDICAID, SELFPAY | PROVIDERS: PCP Electrodiagnostic Medicine; Visit Provider Obstetrics & Gynecology | DX: O09.899 Supervision of other high risk pregnancies, unspecified trimester (principal); Z3A.00 Weeks of gestation of pregnancy not specified | CPT/HCPCS: 81000 ==

== ENCOUNTER → 2021-02-03 09:28 | Outpatient (BNVA) | payer BC, MEDICAID, SELFPAY | PROVIDERS: PCP Electrodiagnostic Medicine; Visit Provider Obstetrics & Gynecology | DX: O09.899 Supervision of other high risk pregnancies, unspecified trimester (principal); Z3A.00 Weeks of gestation of pregnancy not specified | CPT/HCPCS: 82950; 85025 ==

== ENCOUNTER 2021-02-05 17:35 | Outpatient (CLI) | payer BC, MEDICAID, SELFPAY ==
[2021-02-05 17:53] VITALS: BP 111/72; PULSE 92; TEMP 36.3
--- NOTE | 2021-02-05 18:33 | USR_ITS ---
PROCEDURE INFORMATION: Exam: US , Limited Exam date and time: 02/05/2021 6:33 PM Age: 30 years old Clinical indication: Screening exam; Other: Spotting; ; Additional info: Spotting, contractions, n/v, cervical length, placenta location, persentation, helder TECHNIQUE: Imaging protocol: Real-time ultrasound of the maternal uterus with image documentation. Exam focused on the clinical indication. COMPARISON: OB limited [id number] 01/28/2021 1:15 PM FINDINGS: Gestation: Intrauterine gestation. presentation: Single intrauterine in breech presentation. heart rate: heart rate 144 bpm. Placenta: Placenta is anterior. Amniotic fluid index: Amniotic fluid index normal at 17. MATERNAL: Cervix: Cervix closed and normal length measuring 4.8 cm. US/US OB limited [id number] IMPRESSION: 1. Single intrauterine in breech presentation. 2. Cervix closed and normal length measuring 4.8 cm. 3. heart rate 144 bpm. 4. Amniotic fluid index normal at 17. 5. Placenta is anterior. Radiation Dose CTDIVOL = (mGy): DLP = (mGy-cm)
[2021-02-05 18:43] VITALS: BMI 23.3
[2021-02-05 18:52] VITALS: RESP 18
[2021-02-05] MEDS: NIFEdipine 10 mg Capsule 30 MG PO (18:59)
[2021-02-05 19:06] VITALS: BP 114/66; PULSE 73
[2021-02-05 19:40] VITALS: BP 105/62; PULSE 96
[2021-02-05 19:58] LABS: Protein Urine Neg (Negative); Specific Gravity, Urine 1.005 (1.005-1.030); Urine Appearance Hazy (CLEAR); Urine Color Straw (Yellow); pH Urine 7 (5-7)
[2021-02-05 19:59] LABS: Add Urine Microscopic? YES; Bilirubin Urine Neg (Negative); Blood Urine 2+ (Negative); Glucose Urine UA Norm (Normal); Ketones Urine Negative (Negative); Leukocyte Esterase Urine 2+ (Negative); Nitrate Urine Negative (Negative); RBC Urine 0-4 /hpf (0-2); Urobilinogen Urine Norm (Negative); WBC Urine 15-25 /hpf (0-5)
[2021-02-05 20:00] LABS: Transitional Epi Cells Urine 0-4 /hpf
[2021-02-05 20:01] LABS: Add Urine Culture? No; Bacteria Urine 2+ /hpf; Mucus Urine TRACE /hpf
[2021-02-05 20:05] VITALS: BP 100/62; PULSE 108
== END 2021-02-05 20:09 | disposition home or self-care (01) ==
LOC: OPOB 17:45 → OBGYN 17:47
PROVIDERS: Obstetrics & Gynecology; PCP Electrodiagnostic Medicine; Visit Provider Family Medicine
DX: O47.9 False labor, unspecified (principal); O99.891 Other specified diseases and conditions complicating pregnancy; N89.8 Other specified noninflammatory disorders of vagina
CPT/HCPCS: 59025; 76815; 81001; 99211

== ENCOUNTER → 2021-02-10 14:33 | Outpatient (BNVA) | payer BC, MEDICAID, SELFPAY | PROVIDERS: PCP Electrodiagnostic Medicine; Visit Provider Obstetrics & Gynecology | DX: O09.899 Supervision of other high risk pregnancies, unspecified trimester (principal); Z3A.00 Weeks of gestation of pregnancy not specified | CPT/HCPCS: 81000 ==

== ENCOUNTER → 2021-02-27 13:40 | Outpatient (BNVA) | payer BC, MEDICAID, SELFPAY | PROVIDERS: PCP Electrodiagnostic Medicine; Visit Provider Obstetrics & Gynecology | DX: O09.899 Supervision of other high risk pregnancies, unspecified trimester (principal); Z3A.00 Weeks of gestation of pregnancy not specified | CPT/HCPCS: 81000 ==

== ENCOUNTER → 2021-03-10 07:36 | Day surgery (SDC) | payer BC, MEDICAID, SELFPAY ==
[2021-03-10 07:47] VITALS: BMI 25.0
[2021-03-10 07:49] VITALS: BP 91/62; PULSE 97; RESP 18; TEMP 36.7; O2SAT 100
[2021-03-10] MEDS: iron sucrose 200 MG in sodium chloride 0.9% (100 ml) 100 ML 220 MG IV (08:08)
== END ==
PROVIDERS: PCP Electrodiagnostic Medicine; Visit Provider Obstetrics & Gynecology Maternal & Fetal Medicine
DX: O09.893 Supervision of other high risk pregnancies, third trimester (principal); O99.013 Anemia complicating pregnancy, third trimester; Z3A.00 Weeks of gestation of pregnancy not specified
CPT/HCPCS: 81000; 96365; J1756

== ENCOUNTER → 2021-03-13 10:27 | Day surgery (SDC) | payer BC, MEDICAID, SELFPAY ==
[2021-03-13 10:35] VITALS: BP 114/62; PULSE 82; RESP 18; TEMP 36.4; O2SAT 100
[2021-03-13 10:38] VITALS: BMI 25.0
[2021-03-13] MEDS: iron sucrose 200 MG in sodium chloride 0.9% (100 ml) 100 ML 220 MG IV (11:01)
== END ==
PROVIDERS: PCP Electrodiagnostic Medicine; Visit Provider Obstetrics & Gynecology Maternal & Fetal Medicine
DX: O09.893 Supervision of other high risk pregnancies, third trimester (principal); O99.013 Anemia complicating pregnancy, third trimester; Z3A.00 Weeks of gestation of pregnancy not specified
CPT/HCPCS: 96365; J1756

== ENCOUNTER → 2021-03-20 09:34 | Day surgery (SDC) | payer BC, MEDICAID, SELFPAY ==
[2021-03-20] MEDS: iron sucrose 200 MG in sodium chloride 0.9% (100 ml) 100 ML 220 MG IV (10:02)
[2021-03-20 10:06] VITALS: BP 118/48; PULSE 90; RESP 18; TEMP 36.6; O2SAT 98
== END ==
PROVIDERS: PCP Electrodiagnostic Medicine; Visit Provider Obstetrics & Gynecology Maternal & Fetal Medicine
DX: O09.893 Supervision of other high risk pregnancies, third trimester (principal); O99.013 Anemia complicating pregnancy, third trimester; Z3A.00 Weeks of gestation of pregnancy not specified
CPT/HCPCS: 96365; J1756

== ENCOUNTER 2021-03-23 09:45 | Outpatient (CLI) | payer BC, MEDICAID, SELFPAY ==
[2021-03-23] VITALS (12 sets, daily range): BP systolic 96–131; BP diastolic 62–77; PULSE 76–101; RESP 16; BMI 25.6
[2021-03-23] MEDS: HYDROcodone-acetaminophen 5-325 mg Tablet 1 TAB PO (10:31)
--- NOTE | 2021-03-23 11:37 | P.PCN_ITS ---
Procedure/Consent Procedure Narrative: NONSTRESS TEST: [place] [facility] [place] Indication: 30-year-old 2 para 1-0-0-1 at 35 weeks and 4 days with abdominal pain Date and time of test: 11:20 AM on 03/23/2021 Baseline: 135 Variability: Moderate variability Accelerations: Accelerations present Decelerations: No decelerations Tocometry: Irritability, no contractions INTERPRETATION: NST reactive, continue kick counts
[2021-03-23 11:51] LABS: Blood Urine Neg (Negative); Glucose Urine UA Norm (Normal); Ketones Urine Negative (Negative); Protein Urine Neg (Negative); Specific Gravity, Urine 1.005 (1.005-1.030); Urine Appearance Hazy (CLEAR); Urine Color Yellow (Yellow); pH Urine 7 (5-7)
[2021-03-23 11:52] LABS: Bilirubin Urine Neg (Negative); Leukocyte Esterase Urine 1+ (Negative); Nitrate Urine Negative (Negative); Urobilinogen Urine Norm (Negative)
[2021-03-23 11:54] LABS: Bacteria Urine 2+ /hpf; Squamous Epithelial Cell Urine 15-25 /hpf (0-5)
[2021-03-23 11:55] LABS: Add Urine Culture? No
[2021-03-23] MEDS: acetaminophen 325 mg Tablet 650 MG PO (12:06)
[2021-03-23 12:08] LABS: Urine Creatinine 21 mg/dL (28-217); Urine Protein Random 5 mg/dL
[2021-03-23 12:10] LABS: UPRO/UCREAT Ratio 0.24 mg/mg CR
== END 2021-03-23 12:22 | disposition home or self-care (01) ==
LOC: OPOB 09:51 → OBGYN 09:52
PROVIDERS: PCP Electrodiagnostic Medicine; Visit Provider Obstetrics & Gynecology
DX: O26.899 Other specified pregnancy related conditions, unspecified trimester (principal); Z3A.00 Weeks of gestation of pregnancy not specified; R60.9 Edema, unspecified; R10.9 Unspecified abdominal pain; M25.519 Pain in unspecified shoulder
CPT/HCPCS: 51702; 59025; 81001; 82570; 84156; 99211

== ENCOUNTER → 2021-03-24 12:34 | Day surgery (SDC) | payer BC, MEDICAID, SELFPAY ==
[2021-03-24 13:16] VITALS: BP 110/63; PULSE 80; RESP 18; TEMP 36.7; O2SAT 99
[2021-03-24] MEDS: iron sucrose 200 MG in sodium chloride 0.9% (100 ml) 100 ML 220 MG IV (13:18)
== END ==
PROVIDERS: PCP Electrodiagnostic Medicine; Visit Provider Obstetrics & Gynecology Maternal & Fetal Medicine
DX: O09.893 Supervision of other high risk pregnancies, third trimester (principal); O99.013 Anemia complicating pregnancy, third trimester; Z3A.00 Weeks of gestation of pregnancy not specified
CPT/HCPCS: 36592; 96365; J1756

== ENCOUNTER → 2021-03-27 12:43 | Outpatient (BNVA) | payer BC, MEDICAID, SELFPAY | PROVIDERS: PCP Electrodiagnostic Medicine; Visit Provider Obstetrics & Gynecology | DX: O09.899 Supervision of other high risk pregnancies, unspecified trimester (principal); Z3A.00 Weeks of gestation of pregnancy not specified | CPT/HCPCS: 81000; 87081 ==

== ENCOUNTER 2021-03-29 17:50 | Outpatient (CLI) | payer BC, MEDICAID, SELFPAY ==
[2021-03-29 17:50] VITALS: BMI 26.2
[2021-03-29 18:10] VITALS: BP 109/69; PULSE 85
[2021-03-29 18:31] VITALS: BP 109/65; PULSE 86
[2021-03-29 18:52] VITALS: BP 106/55; PULSE 81
[2021-03-29 19:13] VITALS: BP 106/55; PULSE 81; RESP 18
--- NOTE | 2021-03-29 19:14 | PC.NURSE ---
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 1840 STILL THIS CHOIRMASTER IS ABLE TO AUDIBLE HEAR BABY MOVE WHILE SITTING AT DESK WENT IN AND ASKED HER IF SHE IS FEELING BABY MOVE AND SHE SAID NO BUT I HEARD IT MOVING. [address] RODRIGUES AND REPORT GIVEN AND ORDERS RECEIVED. 1854 WENT IN AND WENT OVER HOME CARE INSTRUCTIONS AND THINGS TO LOOK FOR AND WATCH FOR AND DO'S AND DON'TS. BOTH HER AND HER MOM VOICE UNDERSTANDING.
--- NOTE | 2021-03-29 19:18 | PC.NURSE ---
PATIENT JUST GOT BACK INTO TOWN FROM RIDING IN THE CAR FOR 6.5 HOURS AND CAME RIGHT IN WHEN SHE GOT HOME AND TOLD HER MOTHER THAT SHE WAS WILLOW AND HAVING BACK PAIN AND NOT FEELING BABY MOVE. DR. VERMA AWARE OF THIS WELL.
== END 2021-03-29 19:05 | disposition home or self-care (01) ==
LOC: OPOB 17:58 → OBGYN 18:00
PROVIDERS: PCP Electrodiagnostic Medicine; Visit Provider Obstetrics & Gynecology
DX: O36.8190 Decreased fetal movements, unspecified trimester, not applicable or unspecified (principal); Z3A.00 Weeks of gestation of pregnancy not specified; M54.9 Dorsalgia, unspecified; N89.8 Other specified noninflammatory disorders of vagina; R10.9 Unspecified abdominal pain
CPT/HCPCS: 59025; 99211

== ENCOUNTER 2021-04-02 10:15 | Outpatient (CLI) | payer BC, MEDICAID, SELFPAY ==
[2021-04-02 10:15] VITALS: BMI 24.4
[2021-04-02 10:38] VITALS: BP 114/71; PULSE 83
[2021-04-02 10:59] VITALS: BP 109/69; PULSE 105
[2021-04-02 11:09] LABS: Actim Prom Negative
[2021-04-02 11:28] VITALS: BP 109/69; PULSE 105; RESP 18; TEMP 36.6
== END 2021-04-03 11:35 | disposition home or self-care (01) ==
LOC: OPOB 10:28 → OBGYN 10:29
PROVIDERS: Absent Provider Obstetrics & Gynecology; PCP Electrodiagnostic Medicine; Visit Provider Obstetrics & Gynecology
DX: O26.899 Other specified pregnancy related conditions, unspecified trimester (principal); Z3A.00 Weeks of gestation of pregnancy not specified; N89.8 Other specified noninflammatory disorders of vagina
CPT/HCPCS: 59025; 83986; 84112; 99211

== ENCOUNTER → 2021-04-03 12:28 | Outpatient (BNVA) | payer BC, MEDICAID, SELFPAY | PROVIDERS: PCP Electrodiagnostic Medicine; Visit Provider Obstetrics & Gynecology | DX: O09.899 Supervision of other high risk pregnancies, unspecified trimester (principal); Z3A.00 Weeks of gestation of pregnancy not specified | CPT/HCPCS: 81000; 87086 ==

== ENCOUNTER 2021-04-05 18:45 | Outpatient (CLI) | payer BC, MEDICAID, SELFPAY ==
[2021-04-05] VITALS (9 sets, daily range): BP systolic 104–118; BP diastolic 65–79; PULSE 67–100; TEMP 36.9; BMI 24.7
== END 2021-04-05 21:27 | disposition home or self-care (01) ==
LOC: OPOB 18:45 → OBGYN 18:47
PROVIDERS: PCP Electrodiagnostic Medicine; Visit Provider Obstetrics & Gynecology
DX: O26.899 Other specified pregnancy related conditions, unspecified trimester (principal); Z3A.00 Weeks of gestation of pregnancy not specified; R10.9 Unspecified abdominal pain
CPT/HCPCS: 59025; 99211

== ENCOUNTER → 2021-04-10 13:09 | Outpatient (BNVA) | payer BC, MEDICAID, SELFPAY | PROVIDERS: PCP Electrodiagnostic Medicine; Visit Provider Obstetrics & Gynecology | DX: O09.899 Supervision of other high risk pregnancies, unspecified trimester (principal); O34.219 Maternal care for unspecified type scar from previous cesarean delivery; O99.019 Anemia complicating pregnancy, unspecified trimester; Z3A.00 Weeks of gestation of pregnancy not specified | CPT/HCPCS: 81000; 87086; 87635 ==

== ENCOUNTER 2021-04-15 00:44 | Inpatient (IN) | payer BC, MEDICAID, SELFPAY ==
[2021-04-14] VITALS (8 sets, daily range): BP systolic 117–127; BP diastolic 60–76; PULSE 78–99; RESP 17; O2SAT 99–100; BMI 24.7
[2021-04-15] VITALS (43 sets, daily range): BP systolic 91–135; BP diastolic 48–79; PULSE 66–117; RESP 17–18; TEMP 36.3–37.7; O2SAT 92–100
[2021-04-15 00:11] LABS: Basophils # 0.1 10^3/uL (0.0-0.1); Basophils % 0.6 %; Eosinophils # 0.2 10^3/uL (0.0-0.8); Eosinophils % 2.1 %; Hematocrit 38.4 % (37.0-47.0); Hemoglobin 12.1 g/dL (11.5-15.3); Lymphocytes # 0.8 10^3/uL (0.8-4.8); Lymphocytes % 10.8 %; Mean Corpuscular HGB Conc 31.5 g/dL (30.0-36.0); Mean Corpuscular Hemoglobin 25.3 pg (28.0-34.0); Mean Corpuscular Volume 80.3 fl (81-99); Monocytes # 0.6 10^3/uL (0.2-0.9); Monocytes % 7.3 %; Neutrophils # 6.14 10^3/uL (1.8-7.7); Neutrophils % 79.1 %; Nucleated Red Blood Cells % 0 %; Platelet Count 192 10^3/cmm (130-400); Red Blood Count 4.78 10^6/uL (4.1-5.3); White Blood Count 7.8 10^3/uL (4.0-10.0)
[2021-04-15] MEDS: lactated ringers 1,000 ML 999 ML IV (00:14)
[2021-04-15] MEDS: dextrose 5%-lactated ringers 1,000 ML 125 ML IV ×2 (01:23→08:25)
--- NOTE | 2021-04-15 03:30 | PM.OPHPUD ---
Labor & Delivery H&P Update Date of Procedure: April 15, 2021 Date H&P Performed: 04/10/21 Changes to previous documentation: Patient presented in labor and made cervical change from 1 cm to 3 cm 75% and -2 with spontaneous rupture of membranes with meconium fluid Admission Diagnosis: Primary indication for procedure: Repeat delivery per patient's request, bilateral tubal ligation with total salpingectomy per patient request. Medicaid consent signed on 03/10/2021 Planned procedure: Operation Date: 04/15/21 04:00 Proposed Procedures p Section Repeat With Tubal(Not Applicable) - Emilia Torres MD
[2021-04-15] MEDS: citric acid-sodium citrate 30 mL UDC (03:42)
[2021-04-15] MEDS: metoclopramide 5 mg/mL SDV 2 mL 10 MG (03:42)
[2021-04-15] MEDS: famotidine 20 mg/2 mL INJ (03:42)
--- NOTE | 2021-04-15 05:36 | P.ANESASSM_ITS ---
Documented by User: Abdirahman Barillas CRNA 04/15/21 05:38 Pre-Anesthetic Assessment Height/Weight: Height 1.65 m Weight 67.585 kg Pulse Resp BP Pulse Ox 86 17 105/61 100 04/15/21 03:40 04/14/21 23:49 04/15/21 03:40 04/15/21 01:08 Was Beta Shane taken within 24 hours: N/A Was Clonidine taken within 24 hours: N/A Social Social History: No alcohol and No tobacco Exam Pre-Anes Outpt Exam: alert, oriented x 3, clear to auscultation bilaterally and regular rate & rhythm Airway Submandibular: WNL Cervical ROM: WNL MP: 2 Dentition: Full Pulmonary Pulmonary: Asthma CV/HEM CV/HEM: Anemia : None reported Hepatic Hepatic: None reported GI GI: GERD Metabolic Metabolic: None reported Musc/skel Musc/skel: None reported Neuropsych Neuropsych: Anxiety, Depression and GAITAN Anesthetic Plan ASA status: 2E Anesthesia: Regional (specify below) Medications/Allergies Home Medications Medication Instructions Recorded Confirmed Last Taken Type albuterol sulfate 90 mcg/actuation 2 puff INHALATION Q4H PRN 04/07/20 04/15/21 03/23/21 History aerosol inhaler (ProAir HFA) fluticasone propionate 50 1 spray INTRANASAL BID 10/01/20 04/15/21 04/05/21 07:30 History mcg/actuation nasal spray,suspension vitamins no.144-folic 1 tab PO DAILY 10/01/20 04/15/21 04/14/21 History acid 400 mcg chewable tablet () citalopram 10 mg tablet (Celexa) 10 mg PO DAILY 30 Days #30 tab 02/21/21 04/15/21 04/14/21 Rx famotidine 20 mg tablet (Pepcid) 20 mg PO BID #60 tab 02/27/21 04/15/21 04/14/21 Rx Allergies Allergy/AdvReac Type Severity Reaction Status Date / Time influenza virus vaccine, Allergy Unknown Verified 04/15/21 02:40 specific Sulfa (Sulfonamide Allergy ALGY-Hives Verified 04/15/21 02:40 Antibiotics) Current Medications Generic Name Dose Route Start Last Admin Trade Name Freq PRN Reason Stop Dose Admin Dextrose/Lactated Ringer's 1,000 mls @ 125 mls/hr 04/15/21 00:45 04/15/21 01 :23 Dextrose 5%-Lactated Ringers IV 125 mls/hr .Q8H BEATRICE Administration PFSH Anesthesia Medical History No pertinent past medical history Neg hx: HTN, DM, throid, DVT/PE PCP: Dr. Sotelo Surgical History (Updated 04/15/21 @ 06:24 by Emilia Torres MD) H/O myringotomy with tube placement - x2-as an infant: performed in [place] History of delivery x 2 06/16/2016 - Low transverse section. Diagnosis: Cephalopelvic disproportion with contracted inlet. Performed by Dr. Roberto Kuo at [facility] in [place], [place]. Documented low transverse section with 2 layer closure of uterine incision. Right-sided inferior extension of the uterine incision. 04/15/2021--repeat low transverse delivery with tubal ligation by Dr. Holman at [facility] [place] when patient presented in labor History of knee surgery 2012 - Right [place], [place] History of laparoscopy 02/18/2017: Hysteroscopy, dilation and curettage, diagnostic laparoscopy with lysis of adhesions on 02/18/2017 for chronic pelvic pain done by Dr Holman at [facility] [place]. On hysteroscopy no abnormalities identified-curettage done-pathology pending. On laparoscopy filmy adhesions of the colon onto the left lower quadrant which was taken down. No other abnormalities noted. Uterus, tubes and ovaries appeared within normal limits. No signs of endometriosis. -Pathology on D&C showed polypoid endometrial mucosal fragments with weakly proliferative endometrium and scattered chronic inflammatory cells-mild chronic endometritis. History of left knee surgery 2012 - [place], [place] History of tonsillectomy and adenoidectomy as an infant- Performed in [place] Status post tubal ligation 04/15/2021--bilateral total salpingectomy for sterilization performed at time of second by Dr. Holman at [facility] [place]. Pathology showed-----> Family History Grandfather Cancer Liver cancer Family/Other Cancer Grandmother Hypertension Denies family history of Diabetes CAD (coronary artery disease) Clotting disorder Dementia Hyperlipidemia Psychiatric illness Chronic kidney disease (CKD) Suicide Anesthesia complication Bleeding disorder Family history of premature coronary artery disease Lung disease Stroke Social History Smoking and tobacco status: never smoked Female Reproductive History Date of last menstrual period: 07/17/20 : 2 Data Anesthesia : 04/15/21 00:00 Short CBC 04/15/21 Range/Units 00:00 WBC 7.8 (4.0-10.0) 10^3/uL Hgb 12.1 (11.5-15.3) g/dL Hct 38.4 (37.0-47.0) % MCV 80.3 L (81-99) fl Plt Count 192 (130-400) 10^3/cmm Neut % (Auto) 79.1 % Neut # (Auto) 6.14 (1.8-7.7) 10^3/uL Cardiac Studies: No Data to Display Documented by User: Wandy Rios DO 04/15/21 08:07 Pre-Anesthetic Assessment Other Pertinent Information Late entry due to EMR down time/outage Medications/Allergies Home Medications Medication Instructions Recorded Confirmed Last Taken Type albuterol sulfate 90 mcg/actuation 2 puff INHALATION Q4H PRN 04/07/20 04/15/21 03/23/21 History aerosol inhaler (ProAir HFA) fluticasone propionate 50 1 spray INTRANASAL BID 10/01/20 04/15/21 04/05/21 07:30 History mcg/actuation nasal spray,suspension vitamins no.144-folic 1 tab PO DAILY 10/01/20 04/15/21 04/14/21 History acid 400 mcg chewable tablet () citalopram 10 mg tablet (Celexa) 10 mg PO DAILY 30 Days #30 tab 02/21/21 04/15/21 04/14/21 Rx famotidine 20 mg tablet (Pepcid) 20 mg PO BID #60 tab 02/27/21 04/15/21 04/14/21 Rx Allergies Allergy/AdvReac Type Severity Reaction Status Date / Time influenza virus vaccine, Allergy Unknown Verified 04/15/21 02:40 specific Sulfa (Sulfonamide Allergy ALGY-Hives Verified 04/15/21 02:40 Antibiotics) [facility] Anesthesia Medical History No pertinent past medical history Neg hx: HTN, DM, throid, DVT/PE PCP: Dr. Sotelo Surgical History (Updated 04/15/21 @ 06:24 by Emilia Torres MD) H/O myringotomy with tube placement - x2-as an : performed in [place] History of delivery x 2 06/16/2016 - Low transverse section. Diagnosis: Cephalopelvic disproportion with contracted inlet. Performed by Dr. Roberto Kuo at [facility] in [place], [place]. Documented low transverse section with 2 layer closure of uterine incision. Right-sided inferior extension of the uterine incision. 04/15/2021--repeat low transverse delivery with tubal ligation by Dr. Holman at [facility] [place] when patient presented in labor History of knee surgery 2012 - Right [place], [place] History of laparoscopy 02/18/2017: Hysteroscopy, dilation and curettage, diagnostic laparoscopy with lysis of adhesions on 02/18/2017 for chronic pelvic pain done by Dr Holman at [facility] [place]. On hysteroscopy no abnormalities identified-curettage done-pathology pending. On laparoscopy filmy adhesions of the colon onto the left lower quadrant which was taken down. No other abnormalities noted. Uterus, tubes and ovaries appeared within normal limits. No signs of endometriosis. -Pathology on D&C showed polypoid endometrial mucosal fragments with weakly proliferative endometrium and scattered chronic inflammatory cells-mild chronic endometritis. History of left knee surgery 2012 - [place], [place] History of tonsillectomy and adenoidectomy as an - Performed in [place] Status post tubal ligation 04/15/2021--bilateral total salpingectomy for sterilization performed at time of second by Dr. Holman at [facility] [place]. Pathology showed-----> Family History Grandfather Cancer Liver cancer Family/Other Cancer Grandmother Hypertension Denies family history of Diabetes CAD (coronary artery disease) Clotting disorder Dementia Hyperlipidemia Psychiatric illness Chronic kidney disease (CKD) Suicide Anesthesia complication Bleeding disorder Family history of premature coronary artery disease Lung disease Stroke Social History Smoking and tobacco status: never smoked Data Anesthesia : 04/15/21 00:00 Cardiac Studies: No Data to Display
--- NOTE | 2021-04-15 05:40 | P.PCN_ITS ---
Documented by User: Abdirahman Barillas CRNA 04/15/21 05:40 PACU note PACU note: VSS, Good respiratory effort, report to WASTEWATER PROCESS ENGINEER Post-Anesthesia Exam: awake Disposition: back to floor
--- NOTE | 2021-04-15 05:40 | PM.PACU ---
Documented by User: Abdirahman Barillas CRNA 04/15/21 05:40 PACU note PACU note: VSS, Good respiratory effort, report to BILL DISTRIBUTOR Post-Anesthesia Exam: awake Disposition: back to floor
--- NOTE | 2021-04-15 06:04 | SUR.PHASEI ---
0535 PT BEING RECOVERED IN OB OR 2 PT AWAKE ALERT WITH GOOD RESP ON RA. ABD SOFT DRESSING D/I , VICENTE TO DEPENDANT DRAINAGE WITH YELLOW URINE NOTED, STATLOCK TO LT THIGH BILAT SCDS ON BILATERALLY. PT HAD SPINAL ANESTHESIA PT STATES NORMAL SENSATION TO T-7 AREA AT THIS TIME. 0605 PT SLEEPS IF NOT DISTURBED ABDOMINAL SITE UNCHANGED AND PT STATES NORMAL SENSATION TO T-10 TO T-11 AREA , PT ABLE TO MOVE BILAT FEET. PT TO BE MOVED TO ROOM 10.
--- NOTE | 2021-04-15 06:16 | PM.OP ---
Operative Report Date of procedure: April 15, 2021 OPERATIVE REPORT Date of surgery: 04/15/2021 Date of dictation: 04/15/2021 Preoperative diagnosis: 30-year-old 2 para 1-0-0-1 at 38 weeks and 6 days, anemia on iron, previous delivery x1 desiring repeat , multiparity desiring permanent sterilization with total salpingectomy, active labor with spontaneous rupture of membrane-thick meconium Postoperative diagnosis/findings: Baby boy weighing 6 pounds 15 ounces, 3160 g, Apgars of 7/8, measuring 20-3/4 inches long, thick meconium fluid, normal tubes and ovaries bilaterally, thin omental adhesions and thin bladder additions onto the uterus. Procedure done: Repeat low transverse delivery via Pfannenstiel incision. Bilateral tubal ligation via total salpingectomy Specimens removed/disposition of specimens: Right and left fallopian tube sent to pathology, placenta which was discarded Surgeon: Dr. Emilia Homlan Hourly Sign Language Interpreter: Genie Moses Anesthesia: Spinal anesthesia Estimated blood loss: 800 ml Intravenous fluids: 1600 mL of LR Urine output: 250 mL of clear urine at the end of procedure. Medications: As per anesthesia records Complications: None, patient was left to recover in a stable condition Preprocedure course: Ms. Weston is a 30-year-old 2 para 1-0-0-1 at 38 weeks and 6 days who presented to labor and delivery at midnight with reports of contractions that have been going on since 9 PM on 04/14/2021. As they got stronger she came in for evaluation. History was significant for 1 previous and she was planning on having a scheduled repeat on 04/16/2021. She also desired total salpingectomy and did not want to have anymore children and had Medicaid consent signed on 03/10/2021. She was also anemic on iron. When she presented to labor and delivery initial exam was 150 and -3 with contractions every 1 to 2 minutes. She was given an IV fluid bolus and repeat exam in 1 hour made no further cervical change. She was observed for 2 more hours and at 3 AM on 04/15/2021 she was noted to be 3 cm 75% and had spontaneous rupture of membranes with thick meconium fluid. As she wanted to repeat consents were signed and patient was taken to the operating room for repeat and tubal ligation. PROCEDURE: After consent was obtained, patient was taken to the operating room where spinal anesthesia was placed without difficulty. She was placed supine on the table with a left lateral wedge. Beckwith catheter and SCDs were placed. The abdomen was shaved and then prepped with duo prep. She was draped in a sterile fashion. After checking adequacy of anesthesia, a Pfannenstiel incision was made 2 cm above the pubic symphysis over her old incision The incision was carried down to the fascia using the Bovie. The fascia was nicked in the midline and the fascial incision was extended laterally using curved Mayos. The inferior aspect of the fascia was grasped with felecia clamps and dissected off from the underlying rectus muscle. This was repeated again superiorly without any difficulty. The rectus muscle was sharply. A jonn was made in the peritoneum and the peritoneal incision was carried inferiorly taking care to proceed in layers so as to avoid the bladder. The peritoneal incision was extended superiorly as well. No adhesions were noted from the uterus to the anterior abdominal wall. Thin omental adhesions were noted which were taken down without any difficulty. The uterus was noted to be rotated to the left. The bladder peritoneum was grasped with smooth forceps a bladder flap was created. Minimal bladder additions were noted. The bladder blade was replaced thus protecting the bladder. A LOW TRANSVERSE UTERINE INCISION was made with a scalpel till the amniotic membrane was reached. The uterine incision was then extended laterally using bandage scissors. Amniotomy was done with Allis clamps and thick meconium amniotic fluid was drained. The head of the baby was brought up to the level of the incision and delivered with fundal pressure. The remainder of body followed without any difficulty. The nose and mouth were suctioned, the umbilical cord was clamped and cut and the baby was handed off to the waiting garage door service technician, Dr. Basilio. The placenta was delivered spontaneously with fundal massage. It was noted to be intact and was discarded. The interior of the uterus was cleaned of all clot and debris and was noted to be meri well. The uterus was exteriorized. The uterine incision was closed with 0 Vicryl in a running interlocking manner. A second layer of giffex-kj-frwiz sutures were placed to obtain hemostasis. Good hemostasis and reapproximation was obtained. The abdomen was irrigated and the gutters were cleaned of clot and debris. Normal tubes and ovaries were noted bilaterally. Tubal ligation was performed at this time. The fallopian tube on the right side and in the left side were first identified grasped with Ovid clamps. Using the Attributort device the mesosalpinx under the fallopian tube was identified clamped cauterized and then cut in a sequential fashion until the entire fallopian tube was removed. This was done first on the right side and then the left side without any difficulty. Areas of vasculature were doubly cauterized. The cornual end was cauterized as well. Good hemostasis and reapproximation of tissue was noted. The tubes were sent to pathology with the right tube tagged. The uterus was placed back into the abdomen and uterine incision was noted to be hemostatic. Site of uterine incision and tubal ligation were noted to be hemostatic. The peritoneum was closed with a 2-0 plain in a continuous stitch. The rectus muscle was reapproximated with 2-0 plain suture in a mattress stitch. Good hemostasis was noted in the rectus muscle layer. The fascia was inspected for any defects and none were found and the fascia was closed with 0 looped PDS in continuous stitch. The subcutaneous plane was then irrigated and hemostasis was obtained using the Bovie. The subcutaneous plane was then reapproximated using 2-0 plain suture in a continuous manner. The skin was then closed with 4-0 Monocryl in a subcuticular fashion. Good reapproximation and hemostasis was noted. Steri-Strips were applied. The incision was dressed with Telfa ,ABD and paper tape. The fundus was noted to be firm at the end of the procedure and excess blood was expressed from the vagina. The patient was left to recover in a stable condition. This documentation was created by [employer] health information manager software (known for inherent health information manager error). Every effort was made to assure accuracy of health information manager. Any obvious errors or omissions should be clarified with the author of the document.
--- NOTE | 2021-04-15 06:30 | SUR.PHASEI ---
0610 PT TO OB 10 PT MOTHER AT BEDSIDE , WAS ALSO IN OR WITH PT. PT AWAKE ALERT ASKING FOR SOMETHING TO DRINK. 0615 HANDOFF AT BEDSIDE WITH АЛЕКСАНДР BARBA. PT ABD SOFT WITH DRESSING D/I VICENTE PATENT OF YELLOW URINE, IV PATENT. VSS.
--- NOTE | 2021-04-15 08:08 | ANE.PACU2 ---
Inpatient post-anesthesia follow up: Airway intact: Yes Vital signs: Temperature 98.5 F Pulse Rate 70 Respiratory Rate 18 Blood Pressure 104/56 Pulse Oximetry 98 Oxygen Delivery Me thod Room Air Oxygen Flow Rate Fraction of Inspir ed Oxygen Hydration adequate: Yes Nausea and vomiting: No Pain level: 1 Mental status: Baseline
[2021-04-15] MEDS: ibuprofen 800 mg tablet PO ×2 (15:05→21:11)
[2021-04-15] MEDS: prenatal vitamin Capsule 1 CAP PO (15:05)
[2021-04-15] MEDS: HYDROcodone-acetaminophen 5-325 mg Tablet PO (17:29)
[2021-04-15] MEDS: docusate sodium 100 mg Capsule PO (17:30)
[2021-04-15] MEDS: ferrous sulfate EC 325 mg Tablet PO (17:31)
[2021-04-15 17:43] LABS: Hematocrit 38.5 % (37.0-47.0); Hemoglobin 12.2 g/dL (11.5-15.3); Mean Corpuscular HGB Conc 31.7 g/dL (30.0-36.0); Mean Corpuscular Hemoglobin 25.7 pg (28.0-34.0); Mean Corpuscular Volume 81.1 fl (81-99); Mean Platelet Volume 11.6 fL (7.4-10.4); Platelet Count 218 10^3/cmm (130-400); Red Blood Count 4.75 10^6/uL (4.1-5.3); Red Cell Distribution Width 21.9 % (12.1-15.1); White Blood Count 9.4 10^3/uL (4.0-10.0)
--- NOTE | 2021-04-15 20:16 | PC.NURSE ---
pt ambulating in [place]. pt walked three laps around the unit.
[2021-04-16 00:29] VITALS: BP 111/70; PULSE 54; TEMP 36.5; O2SAT 98
[2021-04-16 04:10] VITALS: BP 124/82; PULSE 82; TEMP 36.5; O2SAT 98
[2021-04-16] MEDS: HYDROcodone-acetaminophen 5-325 mg Tablet PO ×2 (04:10→09:11)
[2021-04-16] MEDS: simethicone 80 mg Chew PO (05:19)
--- NOTE | 2021-04-16 05:23 | PC.NURSE ---
Second [place] was given to Pt at 0523 pt stated pain was unrelieved and worse. Sabina RN and Coral RN at bedside to verify second dose of norco was given to pt for a pain level of 5/10.
[2021-04-16 06:44] LABS: Hematocrit 36.7 % (37.0-47.0); Hemoglobin 11.3 g/dL (11.5-15.3); Mean Corpuscular HGB Conc 30.8 g/dL (30.0-36.0); Mean Corpuscular Hemoglobin 25.1 pg (28.0-34.0); Mean Corpuscular Volume 81.4 fl (81-99); Mean Platelet Volume 12.4 fL (7.4-10.4); Platelet Count 206 10^3/cmm (130-400); Red Blood Count 4.51 10^6/uL (4.1-5.3); Red Cell Distribution Width 22.3 % (12.1-15.1)
--- NOTE | 2021-04-16 08:12 | PM.PN ---
Subjective Subjective: Interval history: SUBJECTIVE: Ms. Weston is doing well today. She states that she is overall feeling pretty good. Has been burping but has not yet passed flatus. Has been voiding without any difficulty since removal of the catheter. She reports pain is well controlled with pain medication and she just has some shoulder discomfort. She denies nausea, vomiting, fever, chills and is tolerating her full liquid diet without any difficulty. She denies chest pain, shortness of breath fever or chills. She is formula feeding her son. She would like her son to be circumcised OBJECTIVE/PHYSICAL EXAM: Gen.: No acute distress Heart: S1-S2 heard, regular rate and rhythm Lungs: Clear to auscultation bilaterally Abdomen: Soft, fundus firm below umbilicus, tenderness around incision. Incision: Dressing removed-clean dry and intact with Steri-Strips. Legs: No calf tenderness, no pedal edema. ASSESSMENT AND PLAN: 30-year-old 2 para 2-0-0-2 status post Repeat delivery and tubal ligation, day #1 -Continue routine care -Encourage ambulation and incentive spirometer use -Continue p.o. pain medication -Continue full liquid diet until she passes flatus and then will advance to regular diet -Anticipate discharge in the next 1 to 2 days depending on how she recovers. Circumcision discussed with patient including risk benefits alternatives and she would like to have this done. We will likely do this tomorrow since baby is going to stay for Wednesday. -Incision care discussed with patient Vitals/I&O/Wt Last Vital Signs Temp 97.7 F 04/16/21 04:10 Pulse 82 04/16/21 04:10 Resp 18 04/15/21 17:30 BP 124/82 04/16/21 04:10 Pulse Ox 98 04/16/21 04:10 04/15/21 04/16/21 04/16/21 22:59 06:59 14:59 Output Total 1700 / 4000 800 / 4800 Balance -1700 / -4000 -800 / -4800 Weight last 48 hrs Weight 149 lb Weight 149 lb Physical Exam Urinary Catheter Management: Beckwith: Cath Placed During This Visit: yes, but has since been removed by the nurse Reason for Continuing Indwelling Catheter: Perioperative Use in Selected Surgeries Urinary Catheter Date of Insertion: 01/25/22 Urinary Catheter Time of Insertion: 04:10 Date Urinary Catheter Removed: 04/15/21 Time Urinary Catheter Discontinued: 13:40 Data : 04/16/21 05:10 Attestations Medical Necessity Statement*: Patient will need to stay for 1-2 more midnights to recover from surgery and delivery Coding Level of Care Code Acute Cadmium Liquor Maker for Cecilia Pierre
[2021-04-16] MEDS: prenatal vitamin Capsule 1 CAP PO (09:11)
[2021-04-16] MEDS: ibuprofen 800 mg tablet PO ×3 (09:11→21:07)
[2021-04-16] MEDS: docusate sodium 100 mg Capsule PO ×2 (09:12→18:23)
[2021-04-16 22:00] VITALS: BP 111/59; PULSE 72; RESP 16; O2SAT 98
[2021-04-17] MEDS: HYDROcodone-acetaminophen 5-325 mg Tablet PO ×2 (00:53→07:51)
[2021-04-17 04:30] VITALS: BP 113/76; PULSE 71; RESP 18; TEMP 36.4
[2021-04-17 07:40] VITALS: BP 114/74; PULSE 126; RESP 18; TEMP 36.9
[2021-04-17] MEDS: docusate sodium 100 mg Capsule PO ×2 (07:50→16:51)
[2021-04-17] MEDS: ferrous sulfate EC 325 mg Tablet PO ×2 (07:51→16:51)
[2021-04-17] MEDS: ibuprofen 800 mg tablet PO ×3 (07:51→21:06)
[2021-04-17] MEDS: prenatal vitamin Capsule 1 CAP PO (07:51)
--- NOTE | 2021-04-17 09:07 | P.PN_ITS ---
Subjective Subjective: Interval history: SUBJECTIVE: Ms. Weston is doing well today. She has been passing flatus and has been tolerating regular diet. She denies nausea, vomiting, fever, chills, shortness of breath and chest pain. She reports that pain is well controlled and she feels better when she moves about. She continues to desire her son to be circumcised. Denies any problems with her incision. OBJECTIVE/PHYSICAL EXAM: Gen.: No acute distress Heart: S1-S2 heard, regular rate and rhythm Lungs: Clear to auscultation bilaterally Abdomen: Soft, fundus firm below umbilicus, tenderness around incision. Incision: Clean dry and intact with Steri-Strips. Legs: No calf tenderness, no pedal edema. ASSESSMENT AND PLAN: 30-year-old 2 para 2-0-0-2 status post repeat delivery and tubal ligation, postoperative day #2 -Routine postoperative care -Encourage p.o. pain medication incentive spirometer use and ambulation -Patient would like to stay another day as baby is going to be discharged only tomorrow -Circumcision counseling done if patient desires this. Consents were signed\ -Anticipate discharge home tomorrow. Vitals/I&O/Wt Last Vital Signs Temp 97.5 F L 04/17/21 04:30 Pulse 71 04/17/21 04:30 Resp 18 04/17/21 04:30 BP 113/76 04/17/21 04:30 Pulse Ox 98 04/16/21 22:00 Physical Exam Urinary Catheter Management: Beckwith: Cath Placed During This Visit: yes, but has since been removed by the nurse Reason for Continuing Indwelling Catheter: Perioperative Use in Selected Surgeries Urinary Catheter Date of Insertion: 04/15/21 Urinary Catheter Time of Insertion: 04:10 Date Urinary Catheter Removed: 04/15/21 Time Urinary Catheter Discontinued: 13:40 Data : 04/16/21 05:10 Attestations Medical Necessity Statement*: Patient will need to stay 1-2 more midnights to recover from delivery Coding Level of Care Code Acute Human Resources Recruiter for Cecilia Pierre
[2021-04-17 13:30] VITALS: BP 121/73; PULSE 126; RESP 18; TEMP 36.9
[2021-04-17] MEDS: simethicone 80 mg Chew PO (16:51)
[2021-04-17 22:00] VITALS: BP 105/69; PULSE 82; RESP 16
[2021-04-18 04:30] VITALS: BP 99/64; PULSE 79; RESP 16; O2SAT 97
[2021-04-18 07:30] VITALS: BP 121/80; PULSE 75; RESP 18; TEMP 36.7
--- NOTE | 2021-04-18 10:31 | PM.OBGYDC ---
Discharge Providers WORD PROCESSING SPECIALIST Date of Admission: 04/15/21 00:44 Date of Discharge: 04/18/21 Attending Provider at Admission: Emilia Torres MD Attending Provider at Discharge: Emilia Torrse MD Preoperative diagnosis: 30-year-old 2 para 1-0-0-1 at 38 weeks and 6 days, anemia on iron, previous delivery x1 desiring repeat , multiparity desiring permanent sterilization with total salpingectomy, active labor with spontaneous rupture of membrane-thick meconium Postoperative diagnosis/findings: Baby boy weighing 6 pounds 15 ounces, 3160 g, Apgars of 7/8, measuring 20-3/4 inches long, thick meconium fluid, normal tubes and ovaries bilaterally, thin omental adhesions and thin bladder additions onto the uterus. Procedure done: Repeat low transverse delivery via Pfannenstiel incision.? Bilateral tubal ligation via total salpingectomy on 04/15/2021 Specimens removed/disposition of specimens: Right and left fallopian tube sent to pathology, placenta which was discarded Surgeon: Dr. Emilia Holman Preprocedure course: Ms. Weston is a 30-year-old 2 para 1-0-0-1 at 38 weeks and 6 days who presented to labor and delivery at midnight with reports of contractions that have been going on since 9 PM on 04/14/2021.? As they got stronger she came in for evaluation.? History was significant for 1 previous and she was planning on having a scheduled repeat on 04/16/2021.? She also desired total salpingectomy and did not want to have anymore children and had Medicaid consent signed on 03/10/2021.? She was also anemic on iron.? When she presented to labor and delivery initial exam was 150 and -3 with contractions every 1 to 2 minutes.? She was given an IV fluid bolus and repeat exam in 1 hour made no further cervical change.? She was observed for 2 more hours and at 3 AM on 04/15/2021 she was noted to be 3 cm 75% and had spontaneous rupture of membranes with thick meconium fluid.? As she wanted to repeat consents were signed and patient was taken to the operating room for repeat and tubal ligation. HOSPITAL COURSE: She underwent an uncomplicated repeat delivery and tubal ligation on 04/15/2021. She did well on day 0 and was ambulating well, tolerating regular diet, voiding freely, passing flatus. She was formula feeding without difficulty and bonding well with her son. Circumcision was performed on him on day of life 2 per her request without any difficulty. Pain was well-controlled with by mouth pain medication. She denied nausea, vomiting, fever, chills, shortness of breath, leg pain. She had moderate vaginal bleeding. Hemoglobin was stable at 11.3 postdelivery. On day # 2 she continued to do well without any problems and vital signs were stable. She continued to do well with stable vital signs and stable hemoglobin at 11.3. She was discharged home on day 3 in a stable condition. Warning signs for endometritis, mastitis, DVT/PE wound infection, were reviewed with her. Post delivery activity restrictions were also reviewed with her at all her questions were answered to her satisfaction. She has had sterilization for contraception EXAM AT DISCHARGE: Gen.: No acute distress Heart: S1-S2 heard, regular rate and rhythm Lungs: Clear to auscultation bilaterally Abdomen: Soft, fundus firm below umbilicus, tenderness around incision. Incision: Clean dry and intact with Steri-Strips. Legs: No calf tenderness, no pedal edema. CONDITION AT DISCHARGE: Stable This documentation was created by [employer] local delivery driver software (known for inherent local delivery driver error). Every effort was made to assure accuracy of local delivery driver. Any obvious errors or omissions should be clarified with the author of the document. Primary Care Provider: Jonnie Sotelo DO Reason for Visit Reason for Visit: Contractions Information Peripartum Data: Infant Delivery Method: Physical Exam Urinary Catheter Management: Beckwith: Cath Placed During This Visit: yes, but has since been removed by the nurse Reason for Continuing Indwelling Catheter: Perioperative Use in Selected Surgeries Urinary Catheter Date of Insertion: 04/15/21 Urinary Catheter Time of Insertion: 04:10 Date Urinary Catheter Removed: 04/15/21 Time Urinary Catheter Discontinued: 13:40 History History History 2 Term 1 Miscarriages/Ectopic 0 0 Living Children 1 Discharge Data Studies Completed and Pending Completed Studies During Hospitalization Category Date Time Status Pathology: Surgical [PTH] Routine Pth 04/15/21 06:02 Completed Laboratory Results WBC 7.0 10^3/uL (4.0-10.0) 04/16/21 05:10 RBC 4.51 10^6/uL (4.1-5.3) 04/16/21 05:10 Hgb 11.3 g/dL (11.5-15.3) L 04/16/21 05:10 Hct 36.7 % (37.0-47.0) L 04/16/21 05:10 MCV 81.4 fl (81-99) 04/16/21 05:10 MCH 25.1 pg (28.0-34.0) L 04/16/21 05:10 MCHC 30.8 g/dL (30.0-36.0) 04/16/21 05:10 RDW 22.3 % (12.1-15.1) H 04/16/21 05:10 Plt Count 206 10^3/cmm (130-400) 04/16/21 05:10 MPV 12.4 fL (7.4-10.4) H 04/16/21 05:10 Neut % (Auto) 79.1 % 04/15/21 00:00 Lymph % (Auto) 10.8 % 04/15/21 00:00 [place] % (Auto) 7.3 % 04/15/21 00:00 Eos % (Auto) 2.1 % 04/15/21 00:00 Baso % (Auto) 0.6 % 04/15/21 00:00 Neut # (Auto) 6.14 10^3/uL (1.8-7.7) 04/15/21 00:00 Lymph # (Auto) 0.8 10^3/uL (0.8-4.8) 04/15/21 00:00 [place] # (Auto) 0.6 10^3/uL (0.2-0.9) 04/15/21 00:00 Eos # (Auto) 0.2 10^3/uL (0.0-0.8) 04/15/21 00:00 Baso # (Auto) 0.1 10^3/uL (0.0-0.1) 04/15/21 00:00 Nucleated RBC % (auto) 0 % 04/15/21 00:00 Nucleated RBCs # 0.0 /100WBC 04/15/21 00:00 Vitals Last Vital Signs Temp 98.1 F 04/18/21 07:30 Pulse 75 04/18/21 07:30 Resp 18 04/18/21 07:30 BP 121/80 04/18/21 07:30 Pulse Ox 97 04/18/21 04:30 Discharge Plan Discharge Patient Disposition: Home Condition: Stable Prescriptions: New hydrocodone-acetaminophen 5-325 mg tablet 1 tab PO Q6H Qty: 25 0RF Rx Instructions: Alternate with ibuprofen ibuprofen 800 mg tablet 800 mg PO Q8H Qty: 30 0RF docusate sodium 100 mg Capsule 100 mg PO BID PRN (Reason: constipation) Qty: 30 0RF Continued famotidine [Pepcid] 20 mg tablet 20 mg PO BID Qty: 60 4RF citalopram [Celexa] 10 mg tablet 10 mg PO DAILY 30 Days Qty: 30 4RF fluticasone propionate 50 mcg/actuation Kegley,Suspension 1 spray INTRANASAL BID 0RF 400 mcg Tablet,Chewable 1 tab PO DAILY 0RF albuterol sulfate [ProAir HFA] 90 mcg/actuation HFA aerosol inhaler 2 puff INHALATION Q4H PRN (Reason: Shortness Of Breath) 0RF Discharge Orders: Discharge Order (Routine); Ordered 04/18/21 Ordered By: Emilia Torres Referrals: Ximena Mccord MD [Physician] - (6-week ) Discharge Diet: Regular Discharge Activity: Limit activity as instructed Patient Instructions: Depression (DC), Bleeding (DC), Preeclampsia and Eclampsia After Delivery (GEN), OB [facility], OB Discharge Report, OB Food/Drug Interaction Guide, Opioid Safety, OB Home Care Activity Restrictions/Additional Instructions: Pelvic rest for 6 weeks, no heavy lifting for 6 weeks 2-week incision check with Dr. Holman, 6-week visit with Dr. Mccord Discharge Attestations WORD PROCESSING SPECIALIST Time Spent in Discharge Care*: greater than 30 min Coding Level of Care Code Acute Harp Repairer for Landeng Gabby
[2021-04-18] MEDS: ferrous sulfate EC 325 mg Tablet PO (10:49)
[2021-04-18] MEDS: ibuprofen 800 mg tablet PO (10:49)
[2021-04-18] MEDS: prenatal vitamin Capsule 1 CAP PO (10:49)
[2021-04-18] MEDS: docusate sodium 100 mg Capsule PO (10:49)
[2021-04-18 11:32] VITALS: BP 121/80; PULSE 75; RESP 18; TEMP 36.7
== END 2021-04-18 11:15 | disposition home or self-care (01) | DRG 785 ==
LOC: OPOB 04-16 12:01 → OBGYN 04-16 12:02
PROVIDERS: Admitting Provider Obstetrics & Gynecology; PCP Electrodiagnostic Medicine; Visit Provider Obstetrics & Gynecology
PROC: 10D00Z1 Extraction of Products of Conception, Low, Open Approach (ICD-10-PCS; CPT 59514; principal; 2021-04-15 03:15)
DX: O34.211 Maternal care for low transverse scar from previous cesarean delivery (principal); Z30.2 Encounter for sterilization; O99.02 Anemia complicating childbirth; D64.9 Anemia, unspecified; O77.0 Labor and delivery complicated by meconium in amniotic fluid; Z3A.38 38 weeks gestation of pregnancy; Z37.0 Single live birth
CPT/HCPCS: 36415; 51702; 58611; 59025; 59409; 85025; 85027; 88302; 96374; 99211; J0690; J2274; J2765; J3490; J7030

== ENCOUNTER → 2021-07-11 09:20 | Outpatient (BNVA) | payer BC, MEDICAID, SELFPAY | PROVIDERS: PCP Electrodiagnostic Medicine; Visit Provider Nurse Practitioner | DX: F43.12 Post-traumatic stress disorder, chronic (principal) | CPT/HCPCS: 90792 ==

== ENCOUNTER 2021-10-01 06:15 | Emergency (ER) | payer BC, MEDICAID, SELFPAY ==
[2021-10-01 06:25] VITALS: BP 124/71; PULSE 79; RESP 18; TEMP 36.9; O2SAT 99; BMI 17.4
--- NOTE | 2021-10-01 06:46 | ED_ITS ---
HPI - General Adult General: Chief complaint: General Medical Stated complaint: Congestions, backpain, vomiting Time Seen by Provider: 10/01/21 06:28 Source: patient Mode of arrival: ambulatory Limitations: no limitations History of Present Illness: 30-year-old female who presents to the emergency room with complaint of nausea and vomiting as well as back pain. Began suddenly this morning she denies any hematemesis. Back pain is also mostly at the midline does not really have any flank pain. She is subjectively had a fever but never measured it. No cough no shortness of breath Onset (ago): hour(s) Location: abdomen Radiation: back Severity: moderate Quality: aching Pain Consistency: constant Relieving factors: none Exacerbating factors: none Associated symptoms: Reports decreased appetite, fevers/chills, nausea and vomiting; Deny chest pain, confusion, cough, diaphoresis, dyspnea, headache(s), malaise, rash, palpitations, seizures, short of breath, syncope or weakness Treatments prior to arrival: none Review of Systems Const: Reports: chills and body aches; Denies: fever(s), fatigue, malaise or diaphoresis ENMT: Denies: throat pain, ear or mastoid pain, nasal discharge or nasal congestion Card: Denies: chest pain, palpitations or syncope Resp: Denies: dyspnea, productive cough, non-productive cough or wheezing GI: Reports: abdominal pain, nausea and vomiting; Denies: hematemesis, coffee ground emesis, diarrhea or constipation : Denies: flank pain, difficulty voiding, dysuria, urinary frequency or urinary urgency Musc: Reports: back pain Skin/Breast: Denies: rash Neuro: Denies: headache(s) or confusion PFSH ED PFSH: Medical History No pertinent past medical history Neg hx: HTN, DM, throid, DVT/PE PCP: Dr. Sotelo Post-traumatic stress disorder, chronic Psychiatric care Surgical History H/O myringotomy with tube placement - x2-as an infant: performed in [place] History of delivery x 2 06/16/2016 - Low transverse section. Diagnosis: Cephalopelvic disproportion with contracted inlet. Performed by Dr. Roberto Kuo at [facility] in [place], [place]. Documented low transverse section with 2 layer closure of uterine incision. Right-sided inferior extension of the uterine incision. 04/15/2021--repeat low transverse delivery with tubal ligation by Dr. Holman at [facility] [place] [facility] when patient presented in labor History of knee surgery 2012 - [place], [place] History of laparoscopy 02/18/2017: Hysteroscopy, dilation and curettage, diagnostic laparoscopy with lysis of adhesions on 02/18/2017 for chronic pelvic pain done by Dr Holman at [facility] [place]. On hysteroscopy no abnormalities identified-curettage done-pathology pending. On laparoscopy filmy adhesions of the colon onto the left lower quadrant which was taken down. No other abnormalities noted. Uterus, tubes and ovaries appeared within normal limits. No signs of endometriosis. -Pathology on D&C showed polypoid endometrial mucosal fragments with weakly proliferative endometrium and scattered chronic inflammatory cells-mild chronic endometritis. History of left knee surgery 2012 - [place], [place] History of tonsillectomy and adenoidectomy as an - Performed in [place] Status post tubal ligation 04/15/2021--bilateral total salpingectomy for sterilization performed at time of second by Dr. Holman at [facility] [place] [facility]. Pathology showed-----> complete tubes with full lgcth-tealpio-ob malignancy Family History Grandfather Cancer Liver cancer Family/Other Cancer Grandmother Hypertension Denies family history of Diabetes CAD (coronary artery disease) Clotting disorder Dementia Hyperlipidemia Psychiatric illness Chronic kidney disease (CKD) Suicide Anesthesia complication Bleeding disorder Family history of premature coronary artery disease Lung disease Stroke Female Reproductive History: Date of last menstrual period: 07/17/20 Physical Exam Const: COMMON NORMALS: no acute distress GENERAL APPEARANCE: cooperative and comfortable ORIENTATION/CONSCIOUSNESS: Yes awake, Yes oriented to person, Yes oriented to place and Yes oriented to time HENMT: COMMON NORMALS: normocephalic, atraumatic and hearing grossly normal bilaterally HEAD & SCALP: normocephalic and atraumatic Neck/C-Spine: COMMON NORMALS: no JVD Resp: COMMON NORMALS: normal respiratory effort, No retractions, No use of accessory muscles and clear to auscultation bilaterally AUSCULTATION: clear to auscultation bilaterally Cardio: COMMON NORMALS: no JVD, regular rate, regular rhythm and No murmurs present (Cardio) RATE: regular rate RHYTHM: regular rhythm GI: COMMON NORMALS: Soft to palpation and No hepatosplenomegaly present AUSCULTATION: Yes normoactive bowel sounds PALPATION: Yes Soft to palpation, No Tenderness to palpation present (GI), No Guarding due to palpation present (GI) and Yes No hepatosplenomegaly present : COMMON NORMALS: Yes no CVA tenderness BLADDER/KIDNEY EXAM: Yes no CVA tenderness Back/Pelvis: COMMON NORMALS: no CVA tenderness Extremity: COMMON NORMALS: normal to inspection, capillary refill normal, no clubbing, cyanosis or edema, no calf tenderness and no pedal edema Neuro: SENSORIUM/ORIENTATION: Yes oriented to person, Yes oriented to place and Yes oriented to time Skin: COMMON NORMALS: no rashes or lesions noted GENERAL SKIN EXAM: no rashes or lesions noted Course Vital Signs: Vital signs: Vital Signs Temperature 98.4 F 10/01/21 06:25 Pulse Rate 79 10/01/21 06:25 Respiratory Rate 18 10/01/21 06:25 Blood Pressure 124/71 10/01/21 06:25 Pulse Oximetry 99 10/01/21 06:25 [facility] - General Adult Medical Decision Making Improved with fluids and antiemetics. Will discharge home. Recheck COVID PCR contact patient with results. Supportive cares follow-up as needed Medical Records I reviewed the patient's medical records. Lab Data I reviewed the patient's lab results. : 10/01/21 07:00 10/01/21 07:00 Laboratory Results WBC 6.4 10^3/uL (4.0-10.0) 10/01/21 07:00 RBC 3.95 10^6/uL (4.1-5.3) L 10/01/21 07:00 Hgb 11.7 g/dL (11.5-15.3) 10/01/21 07:00 Hct 34.7 % (37.0-47.0) L 10/01/21 07:00 MCV 87.8 fl (81-99) 10/01/21 07:00 MCH 29.6 pg (28.0-34.0) 10/01/21 07:00 MCHC 33.7 g/dL (30.0-36.0) 10/01/21 07:00 RDW 13.0 % (12.1-15.1) 10/01/21 07:00 Plt Count 291 10^3/cmm (130-400) 10/01/21 07:00 MPV 10.0 fL (7.4-10.4) 10/01/21 07:00 Neut % (Auto) 61.0 % 10/01/21 07:00 Lymph % (Auto) 24.1 % 10/01/21 07:[address] [place] % (Auto) 9.2 % 10/01/21 07:00 Eos % (Auto) 4.2 % 10/01/21 07:00 Baso % (Auto) 1.2 % 10/01/21 07:00 Neut # (Auto) 3.93 10^3/uL (1.8-7.7) 10/01/21 07:00 Lymph # (Auto) 1.6 10^3/uL (0.8-4.8) 10/01/21 07:00 [place] # (Auto) 0.6 10^3/uL (0.2-0.9) 10/01/21 07:00 Eos # (Auto) 0.3 10^3/uL (0.0-0.8) 10/01/21 07:00 Baso # (Auto) 0.1 10^3/uL (0.0-0.1) 10/01/21 07:00 Nucleated RBC % (auto) 0 % 10/01/21 07:00 Nucleated RBCs # 0.0 /100WBC 10/01/21 07:00 Sodium 139 mmol/L (136-145) 10/01/21 07:00 Potassium 3.9 mmol/L (3.5-5.1) 10/01/21 07:00 Chloride 106 mmol/L (98-107) 10/01/21 07:00 Carbon Dioxide 23 mmol/L (22-29) 10/01/21 07:00 Anion Gap 13.9 (5-19) 10/01/21 07:00 BUN 16 mg/dL (6-20) 10/01/21 07:00 Creatinine 0.5 mg/dL (0.5-0.9) 10/01/21 07:00 GFR Calculation 145.9 mL/min (90-130) H 10/01/21 07:00 Glucose 108 mg/dL (65-115) 10/01/21 07:00 Calculated Osmolality 290 mOsm/kg (285-295) 10/01/21 07:00 Calcium 9.0 mg/dL (8.5-10.5) 10/01/21 07:00 Total Bilirubin 0.8 mg/dL (0.15-1.2) 10/01/21 07:00 AST 18 U/L (0-32) 10/01/21 07:00 ALT 13 U/L (0-33) 10/01/21 07:00 Alkaline Phosphatase 87 IU/L (35-105) 10/01/21 07:00 Total Protein 7.1 g/dL (6.6-8.7) 10/01/21 07:00 Albumin 4.4 g/dL (3.5-5.2) 10/01/21 07:00 Globulin 2.7 g/dL (1.3-4.6) 10/01/21 07:00 HCG, Qual Negative (Negative) 10/01/21 07:45 Urine Color Yellow (Yellow) 10/01/21 08:30 Urine Appearance Clear (CLEAR) 10/01/21 08:30 Urine pH 7 (5-7) 10/01/21 08:30 Ur Specific [place] 1.015 (1.005-1.030) 10/01/21 08:30 Urine Protein Neg (Negative) 10/01/21 08:30 Urine Glucose (UA) Norm (Normal) 10/01/21 08:30 Urine Ketones Negative (Negative) 10/01/21 08:30 Urine Blood Neg (Negative) 10/01/21 08:30 Urine Nitrate Negative (Negative) 10/01/21 08:30 Urine Bilirubin Neg (Negative) 10/01/21 08:30 Urine Urobilinogen Norm mg/dL (Negative) 10/01/21 08:30 Ur Leukocyte Esterase Trace (Negative) H 10/01/21 08:30 Urine RBC 0-4 /hpf (0-2) H 10/01/21 08:30 Urine WBC 5-10 /hpf (0-5) H 10/01/21 08:30 Ur Squamous Epith Cells 5-10 /hpf (0-5) H 10/01/21 08:30 Amorphous Sediment Not Reportable 10/01/21 08:30 Urine Bacteria 1+ /hpf (NONE) H 10/01/21 08:30 Urine Mucus 1+ /hpf 10/01/21 08:30 Discharge Plan Discharge Patient Disposition: Home Clinical Impression: Nausea & vomiting, Back pain Condition: Stable Prescriptions: New promethazine 25 mg tablet 25 mg PO Q6H PRN (Reason: nausea and vomiting) Qty: 20 0RF diclofenac sodium 75 mg tablet,delayed release (DR/EC) 75 mg PO Q12H PRN (Reason: pain) Qty: 20 0RF tizanidine 4 mg capsule 4 mg PO Q6H PRN (Reason: muscle spasticity) Qty: 20 0RF Rx Instructions: do not exceed 3 doses per 24 hrs No Action ibuprofen 800 mg tablet 800 mg PO Q8H PRN (Reason: pain) 0RF multivitamin Tablet 1 tab PO DAILY 0RF fluticasone propionate 50 mcg/actuation [place],Suspension 1 spray INTRANASAL BID 0RF albuterol sulfate [ProAir HFA] 90 mcg/actuation HFA aerosol inhaler 2 puff INHALATION Q4H PRN (Reason: Shortness Of Breath) 0RF vitamin H53-dnmfd acid 0.5-1 mg Tablet 1 tab PO DAILY 0RF Zoloft 50 mg tablet 25 mg PO DAILY 0RF Discharge Orders: Discharge ED (Routine); Ordered 10/01/21 Ordered By: Dionicio Cooper Referrals: Jonnie Sotelo, DO [Primary Care Provider] - Discharge Diet: Clear Liquid Discharge Activity: Increase activity as tolerated Patient Instructions: Opioid Safety Activity Restrictions/Additional Instructions: Fluid daily for 24 to 48 hours and advance as tolerated. As needed medicines as prescribed for symptom control. 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
[2021-10-01 07:10] LABS: Basophils # 0.1 10^3/uL (0.0-0.1); Basophils % 1.2 %; Eosinophils # 0.3 10^3/uL (0.0-0.8); Eosinophils % 4.2 %; Hematocrit 34.7 % (37.0-47.0); Hemoglobin 11.7 g/dL (11.5-15.3); Lymphocytes # 1.6 10^3/uL (0.8-4.8); Lymphocytes % 24.1 %; Mean Corpuscular HGB Conc 33.7 g/dL (30.0-36.0); Mean Corpuscular Hemoglobin 29.6 pg (28.0-34.0); Mean Corpuscular Volume 87.8 fl (81-99); Monocytes # 0.6 10^3/uL (0.2-0.9); Monocytes % 9.2 %; Neutrophils # 3.93 10^3/uL (1.8-7.7); Nucleated Red Blood Cells % 0 %; Platelet Count 291 10^3/cmm (130-400); Red Blood Count 3.95 10^6/uL (4.1-5.3); White Blood Count 6.4 10^3/uL (4.0-10.0)
[2021-10-01] MEDS: ondansetron 2 mg/ML SDV 2 mL 4 MG IVP (07:16)
[2021-10-01] MEDS: sodium chloride 0.9% 1,000 ML 999 ML IV ×2 (07:17→08:07)
[2021-10-01 07:46] LABS: Alanine Aminotransferase 13 U/L (0-33); Albumin Level 4.4 g/dL (3.5-5.2); Alkaline Phosphatase 87 IU/L (35-105); Anion Gap 13.9 (5-19); Aspartate Amino Transferase 18 U/L (0-32); Blood Urea Nitrogen 16 mg/dL (6-20); Carbon Dioxide 23 mmol/L (22-29); Chloride 106 mmol/L (98-107); Globulin 2.7 g/dL (1.3-4.6); Glomerular Filtration Rate 145.9 mL/min (90-130); Glucose 108 mg/dL (65-115); Osmolality Calculated 290 mOsm/kg (285-295); Potassium 3.9 mmol/L (3.5-5.1); Sodium 139 mmol/L (136-145); Total Bilirubin 0.8 mg/dL (0.15-1.2); Total Protein 7.1 g/dL (6.6-8.7)
[2021-10-01] MEDS: orphenadrine 30 mg/mL Inj 2 mL 60 MG IVP (08:07)
[2021-10-01] MEDS: ketorolac 30 mg/mL INJ IVP (08:07)
[2021-10-01 08:24] LABS: HCG, Serum Qual Negative (Negative)
[2021-10-01 09:08] LABS: Add Urine Microscopic? YES; Bacteria Urine 1+ /hpf; Bilirubin Urine Neg (Negative); Blood Urine Neg (Negative); Glucose Urine UA Norm (Normal); Ketones Urine Negative (Negative); Leukocyte Esterase Urine Trace (Negative); Mucus Urine 1+ /hpf; Nitrate Urine Negative (Negative); Protein Urine Neg (Negative); RBC Urine 0-4 /hpf (0-2); Specific Gravity, Urine 1.015 (1.005-1.030); Urine Appearance Clear (CLEAR); Urine Color Yellow (Yellow); Urobilinogen Urine Norm (Negative); pH Urine 7 (5-7)
== END 2021-10-01 10:03 | disposition home or self-care (01) ==
PROVIDERS: Emergency Provider Family Medicine; PCP Electrodiagnostic Medicine
DX: R11.2 Nausea with vomiting, unspecified (principal); M54.9 Dorsalgia, unspecified
CPT/HCPCS: 80053; 81001; 84703; 85025; 96361; 96374; 96375; 99284; J1885; J2360; J2405; J7030

== ENCOUNTER → 2021-10-17 10:16 | Outpatient (BNVA) | payer BC, MEDICAID, SELFPAY | PROVIDERS: PCP Family Medicine; Visit Provider Clinical Nurse Specialist Adult Health | DX: B34.9 Viral infection, unspecified (principal); F41.1 Generalized anxiety disorder | CPT/HCPCS: 87400; 87426 ==

== ENCOUNTER 2021-11-29 11:20 | Emergency (ER) | payer BC, MEDICAID, SELFPAY ==
[2021-11-29 11:25] VITALS: BP 119/70; PULSE 74; RESP 16; TEMP 36.7; O2SAT 98; BMI 18.8
--- NOTE | 2021-11-29 11:42 | XRR_ITS ---
PROCEDURE INFORMATION: Exam: XR Right Shoulder Exam date and time: 11/29/2021 11:55 AM Age: 31 years old Clinical indication: Pain; Shoulder; Right TECHNIQUE: Imaging protocol: Radiologic exam of the Right shoulder. Views: 2 or more views. COMPARISON: CR XR shoulder RT min 2V* [id number] 12/11/2019 2:25 PM FINDINGS: Bones/joints: No acute osseous pathology. Anatomic alignment. Soft tissues: Unremarkable. XR/XR shoulder RT min 2V* [id number] IMPRESSION: No acute osseous pathology.
--- NOTE | 2021-11-29 12:32 | W.ED.EXTPRO ---
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 No previous or injuries or surgery to the right shoulder or clavicle. MD Complaint: joint pain Onset (ago): week(s) Pain Consistency: intermittent Location: right (Clavicle) Quality: aching Radiation: none Relieving factors: rest Exacerbating factors: range of motion, exertion and palpation Associated symptoms: Reports no associated symptoms; Deny chest pain, fever(s) or rash Review of Systems Const: Denies: fever(s), chills, body aches, change in appetite, fatigue or malaise Card: Denies: chest pain, edema, dyspnea on exertion or orthopnea Resp: Denies: dyspnea, productive cough or non-productive cough Musc: Reports: joint pain Skin/Breast: Denies: rash or pruritus PFSH ED PFSH: Medical History Generalized anxiety disorder Mild intermittent asthma Post depression Post-traumatic stress disorder, chronic Psychiatric care Repeated concussion of brain Vaccination reaction Patient reports bad reaction to flu shot around 2016 requiring going to the hospital Surgical History H/O myringotomy with tube placement - x2-as an infant: performed in [place] History of delivery x 2 06/16/2016 - Low transverse section. Diagnosis: Cephalopelvic disproportion with contracted inlet. Performed by Dr. Roberto Kuo at [facility] in [place], [place]. Documented low transverse section with 2 layer closure of uterine incision. Right-sided inferior extension of the uterine incision. 04/15/2021--repeat low transverse [place] [facility] History of knee surgery 2012 - [place], [place] History of laparoscopy 02/18/2017: Hysteroscopy, dilation and curettage, diagnostic laparoscopy with lysis of adhesions on 02/18/2017 for chronic pelvic pain done [place] Dr Hol[place] [facility] On hysteroscopy no abnormalities identified-curettage done-pathology pending. On laparoscopy filmy adhesions of the colon onto the left lower quadrant which was taken down. No other abnormalities noted. Uterus, tubes and ovaries appeared within normal limits. No signs of endometriosis. -Pathology on D&C showed polypoid endometrial mucosal fragments with weakly proliferative endometrium and scattered chronic inflammatory cells-mild chronic endometritis. History of left knee surgery 2012 - [place], [place] History of tonsillectomy and adenoidectomy as an infant- Performed in [place] Status post tubal ligation 04/15/2021--bilateral total salpingectomy for sterilization performed at time of second by Dr. [place] [facility] Pathology showed-----> complete tubes with full amvsr-akdvjte-cr malignancy Family History Grandfather Cancer Liver cancer Family/Other Cancer Grandmother Hypertension Denies family history of Diabetes CAD (coronary artery disease) Clotting disorder Dementia Hyperlipidemia Psychiatric illness Chronic kidney disease (CKD) Suicide Anesthesia complication Bleeding disorder Family history of premature coronary artery disease Lung disease Stroke Social History Smoking and tobacco status: never smoked Alcohol intake: never Female Reproductive History: Date of last menstrual period: 11/23/21 Physical Exam Const: COMMON NORMALS: no acute distress GENERAL APPEARANCE: cooperative and comfortable ORIENTATION/CONSCIOUSNESS: Yes awake, Yes oriented to person, Yes oriented to place and Yes oriented to time HENMT: COMMON NORMALS: normocephalic and atraumatic HEAD & SCALP: normocephalic and atraumatic Resp: COMMON NORMALS: normal respiratory effort, No retractions, No use of accessory muscles and clear to auscultation bilaterally AUSCULTATION: clear to auscultation bilaterally Cardio: COMMON NORMALS: regular rate, regular rhythm and No murmurs present (Cardio) RATE: regular rate RHYTHM: regular rhythm Extremity: OTHER: Pain with abduction and external and internal rotation also some milder pain with palpation of the biceps tendon groove. Neuro: SENSORIUM/ORIENTATION: Yes oriented to person, Yes oriented to place and Yes oriented to time Skin: COMMON NORMALS: no rashes or lesions noted GENERAL SKIN EXAM: no rashes or lesions noted Course Vital Signs: Vital signs: Vital Signs Temperature 98.0 F 11/29/21 11:25 Pulse Rate 74 11/29/21 11:25 Respiratory Rate 16 11/29/21 11:25 Blood Pressure 119/70 11/29/21 11:25 Pulse Oximetry 98 11/29/21 11:25 Oxygen Delivery Me thod 11/29/21 11:25 MDM - Extremity (Nontraumatic) Medical Decision Making Change diclofenac. Do not work above shoulder level do not work with arms extended follow-up with primary care if persists may need further imaging or orthopedic referral Lab Data I reviewed the patient's lab results. (X-ray results negative) Discharge Plan Discharge Patient Disposition: Home Clinical Impression: Strain of tendon of right rotator cuff Condition: Stable Prescriptions: New diclofenac sodium 75 mg tablet,delayed release (DR/EC) 75 mg PO Q12H PRN (Reason: pain) Qty: 20 0RF Discontinued ibuprofen 800 mg tablet 800 mg PO Q8H PRN (Reason: pain) No Action multivitamin Tablet 1 tab PO DAILY midodrine 2.5 mg tablet 2.5 mg PO BID Qty: 60 6RF sertraline 25 mg tablet 25 mg PO DAILY Qty: 30 6RF buspirone 5 mg tablet 5 mg PO BID Qty: 60 6RF fluticasone propionate 50 mcg/actuation [place],Suspension 1 spray INTRANASAL BID albuterol sulfate [ProAir HFA] 90 mcg/actuation HFA aerosol inhaler 2 puff INHALATION Q4H PRN (Reason: Shortness Of Breath) vitamin J24-qoyjj acid 0.5-1 mg Tablet 1 tab PO DAILY promethazine 25 mg tablet 25 mg PO Q6H PRN (Reason: nausea and vomiting) Qty: 20 0RF tizanidine 4 mg capsule 4 mg PO Q6H PRN (Reason: muscle spasticity) Qty: 20 0RF Rx Instructions: do not exceed 3 doses per 24 hrs Discharge Orders: Discharge ED (Routine); Ordered 11/29/21 Ordered By: Dionicio Cooper Referrals: Ilya Almanza MD [Primary Care Provider] - Discharge Diet: Usual diet Discharge Activity: Limit activity as instructed Patient Instructions: Opioid Safety Activity Restrictions/Additional Instructions: Avoid working above shoulder level with the right arm. Follow-up with your primary care doctor if not improving. Coding Level of Care Code ED Inspector Tester Sorter for Cecilia Pierre
== END 2021-11-29 12:31 | disposition home or self-care (01) ==
PROVIDERS: Emergency Provider Family Medicine; PCP Family Medicine
DX: S46.011A Strain of muscle(s) and tendon(s) of the rotator cuff of right shoulder, initial encounter (principal); X50.0XXA Overexertion from strenuous movement or load, initial encounter
CPT/HCPCS: 73030; 99283

== ENCOUNTER 2021-12-02 14:47 | Outpatient (CLI) | payer BC, MEDICAID, SELFPAY ==
--- NOTE | 2021-12-02 15:34 | XRR_ITS ---
PROCEDURE INFORMATION: Exam: XR Left Foot Exam date and time: 12/02/2021 3:34 PM Age: 31 years old Clinical indication: Toes; Left; Patient HX: Lt great toe pain, kicked dog house TECHNIQUE: Imaging protocol: Radiologic exam of the Left foot. Views: 3 or more views. COMPARISON: CR XR knee LT 3V* [id number] 01/11/2020 11:02 PM FINDINGS: Bones/joints: Osseous structures are intact. Negative for fracture. Joint spaces are preserved. Soft tissues: Normal. XR/XR foot LT min 3V* [id number] IMPRESSION: No acute findings.
== END 2021-12-02 14:48 | disposition home or self-care (01) ==
LOC: RAD 14:50
PROVIDERS: PCP Family Medicine; Visit Provider Family Medicine
DX: M79.675 Pain in left toe(s) (principal)
CPT/HCPCS: 73630

== ENCOUNTER → 2021-12-11 10:22 | Outpatient (BNVA) | payer BC, MEDICAID, SELFPAY | PROVIDERS: PCP Family Medicine; Visit Provider Family Medicine | DX: J02.9 Acute pharyngitis, unspecified (principal); B34.9 Viral infection, unspecified | CPT/HCPCS: 87880 ==

== ENCOUNTER → 2022-01-18 12:05 | Outpatient (BNVA) | payer BC, MEDICAID, SELFPAY | PROVIDERS: PCP Family Medicine; Visit Provider Registered Nurse Neonatal Intensive Care | DX: R50.9 Fever, unspecified (principal); B34.9 Viral infection, unspecified | CPT/HCPCS: 87400 ==

== ENCOUNTER 2022-04-22 02:32 | Emergency (ER) | payer BC, MEDICAID, SELFPAY ==
[2022-04-22 02:36] VITALS: BP 119/76; PULSE 69; RESP 16; TEMP 36.7; O2SAT 99; BMI 18.8
--- NOTE | 2022-04-22 02:41 | ED_ITS ---
HPI - Female Genitourinary General: Chief complaint: Vaginal Bleeding Stated complaint: Vaginal Bleeding Profusly Time Seen by Provider: 04/22/22 02:34 Source: patient Mode of arrival: ambulatory Limitations: no limitations History of Present Illness: 31-year-old female states that she started her menstruation this evening states her bleeding has been heavier than normal states been going through a tampon an hour. Said some mild cramping patient denies any lightheadedness she has had her tubes tied she believes there is no chance she is she denies any vomiting or diarrhea denies any worsening proving factors no bleeding disorders. Associated symptoms: Reports vaginal bleeding; Deny abdominal pain, headache(s) or nausea Date of Last Menstrual Period: 04/22/22 Review of Systems Const: Denies: fever(s), chills, body aches or change in appetite Eyes: Denies: blurry vision or eye discomfort ENMT: Denies: throat pain or dental pain Card: Denies: chest pain Resp: Denies: dyspnea GI: Denies: abdominal pain, nausea, vomiting or diarrhea : Reports: vaginal bleeding Musc: Denies: neck pain or back pain Skin/Breast: Denies: rash Neuro: Denies: headache(s) Psych: Denies: depression Suman/Lymph: Denies: easy bruising All/Imm: Denies: urticaria PFSH ED PFSH: Medical History Generalized anxiety disorder Mild intermittent asthma Post depression Post-traumatic stress disorder, chronic Psychiatric care Repeated concussion of brain Vaccination reaction Patient reports bad reaction to flu shot around 2016 requiring going to the hospital Surgical History H/O myringotomy with tube placement - x2-as an : performed in [place] History of delivery x 2 06/16/2016 - Low transverse section. Diagnosis: Cephalopelvic disproportion with contracted inlet. Performed by Dr. Roberto Kuo at [facility] in [place], [place]. Documented low transverse section with 2 layer closure of uterine incision. Right-sided inferior extension of the uterine incision. 04/15/2021--repeat low transverse [place] with [place] [facility] [place] History of knee surgery 2012 - Right [place], [place] History of laparoscopy 02/18/2017: Hysteroscopy, dilation and curettage, diagnostic laparoscopy with lysis of adhesions on 02/18/2017 for chronic pelvic pain done by Dr Holman [place] [facility] [place] On hysteroscopy no abnormalities identified-curettage done-pathology pending. On laparoscopy filmy adhesions of the colon onto the left lower quadrant which was taken down. No other abnormalities noted. Uterus, tubes and ovaries appeared within normal limits. No signs of endometriosis. -Pathology on D&C showed polypoid endometrial mucosal fragments with weakly proliferative endometrium and scattered chronic inflammatory cells-mild chronic endometritis. History of left knee surgery 2012 - [place], [place] History of tonsillectomy and adenoidectomy as an - Performed in [place] Status post tubal ligation 04/15/2021--bilateral total salpingectomy for sterilization performed at time of second by [place]. [place] [facility] Pathology showed-----> complete tubes with full unegt-[id number]-yz malignancy Family History Grandfather Cancer Liver cancer Family/Other Cancer Grandmother Hypertension Denies family history of Diabetes CAD (coronary artery disease) Clotting disorder Dementia Hyperlipidemia Psychiatric illness Chronic kidney disease (CKD) Suicide Anesthesia complication Bleeding disorder Family history of premature coronary artery disease Lung disease Stroke Social History Smoking and tobacco status: never smoked Alcohol intake: never Female Reproductive History: Date of last menstrual period: 04/22/22 Physical Exam Const: COMMON NORMALS: no acute distress, patient oriented x3 and healthy mello earing HENMT: COMMON NORMALS: normocephalic and atraumatic HEAD & SCALP: normocephalic and atraumatic Eye: COMMON NORMALS: Equal, round and reactive pupils present and EOMs intact bilaterally PUPIL: Yes Equal, round and reactive pupils present Neck/C-Spine: COMMON NORMALS: full ROM and supple Chest: COMMONS NORMALS: normal inspection of the chest and normal palpation of entire chest wall Resp: COMMON NORMALS: normal respiratory effort, No retractions, No use of accessory muscles and clear to auscultation bilaterally AUSCULTATION: clear to auscultation bilaterally Cardio: COMMON NORMALS: regular rate, regular rhythm and No murmurs present (Cardio) RATE: regular rate RHYTHM: regular rhythm GI: COMMON NORMALS: Normal to inspection, nondistended, normoactive bowel sounds present, Soft to palpation, non-tender and no masses PALPATION: Yes Soft to palpation : SPECULUM EXAM - VAGINA: Yes vaginal bleeding OB/EXTERNAL & SPECULUM: external exam normal and vaginal bleeding OTHER: Slight amount of vaginal blood no clots no heavy bleeding Extremity: COMMON NORMALS: normal to inspection and full ROM Neuro: COMMON NORMALS: patient oriented x3, moves all extremities and no focal motor deficits Psych: COMMON NORMALS: mental status grossly normal, Normal thought process present and cooperative THOUGHT PROCESS: Normal thought process present Skin: COMMON NORMALS: no rashes or lesions noted and no wounds GENERAL SKIN EXAM: no rashes or lesions noted Course Vital Signs: Vital signs: Vital Signs Temperature 98.1 F 04/22/22 02:36 Pulse Rate 71 04/22/22 04:29 Respiratory Rate 16 04/22/22 04:29 Blood Pressure 110/64 04/22/22 04:29 Pulse Oximetry 99 04/22/22 04:29 Oxygen Delivery Me thod 04/22/22 04:29 MDM - Female Medical Decision Making Patient presents here with vaginal bleeding is likely her menstruation on pelvic exam. She did not have any blood clots or no heavy bleeding hemoglobin is kristine. Ultrasound did show uterine fibroids that are small she is stable for discharge we will get her follow-up with [facility] Lab Data 04/22/22 02:53 04/22/22 02:53 Radiology Impressions Pelvis Ultrasound 04/22/22 03:03 IMPRESSION: 1. 2 presumed uterine fibroids, details above. 2. The left ovary contains a 12 x 8 mm dominant follicle versus very small cyst. 3. Otherwise, essentially unremarkable sonographic appearance of the and ovaries. 4. Blood flow detected in each ovary. 5. Very small amount of free pelvic fluid. 6. Other details discussed above. IMPRESSION: 1. 2 presumed uterine fibroids, details above. 2. The left ovary contains a 12 x 8 mm dominant follicle versus very small cyst. 3. Otherwise, essentially unremarkable sonographic appearance of the and ovaries. 4. Blood flow detected in each ovary. 5. Very small amount of free pelvic fluid. 6. Other details discussed above. Laboratory Results WBC 8.4 10^3/uL (4.0-10.0) 04/22/22 02:53 RBC 4.66 10^6/uL (4.1-5.3) 04/22/22 02:53 Hgb 13.1 g/dL (11.5-15.3) 04/22/22 02:53 Hct 41.6 % (37.0-47.0) 04/22/22 02:53 MCV 89.3 fl (81-99) 04/22/22 02:53 MCH 28.1 pg (28.0-34.0) 04/22/22 02:53 MCHC 31.5 g/dL (30.0-36.0) 04/22/22 02:53 RDW 13.3 % (12.1-15.1) 04/22/22 02:53 Plt Count 317 10^3/cmm (130-400) 04/22/22 02:53 MPV 10.1 fL (7.4-10.4) 04/22/22 02:53 Neut % (Auto) 57.1 % 04/22/22 02:53 Lymph % (Auto) 30.1 % 04/22/22 02:53 [place] % (Auto) 7.6 % 04/22/22 02:53 Eos % (Auto) 4.3 % 04/22/22 02:53 Baso % (Auto) 0.8 % 04/22/22 02:53 Neut # (Auto) 4.80 10^3/uL (1.8-7.7) 04/22/22 02:53 Lymph # (Auto) 2.5 10^3/uL (0.8-4.8) 04/22/22 02:53 [place] # (Auto) 0.6 10^3/uL (0.2-0.9) 04/22/22 02:53 Eos # (Auto) 0.4 10^3/uL (0.0-0.8) 04/22/22 02:53 Baso # (Auto) 0.1 10^3/uL (0.0-0.1) 04/22/22 02:53 Nucleated RBC % (auto) 0 % 04/22/22 02:53 Nucleated RBCs # 0.0 /100WBC 04/22/22 02:53 Sodium 139 mmol/L (136-145) 04/22/22 02:53 Potassium 3.4 mmol/L (3.5-5.1) L 04/22/22 02:53 Chloride 101 mmol/L (98-107) 04/22/22 02:53 Carbon Dioxide 26 mmol/L (22-29) 04/22/22 02:53 Anion Gap 15.4 (5-19) 04/22/22 02:53 BUN 13 mg/dL (6-20) 04/22/22 02:53 Creatinine 0.6 mg/dL (0.5-0.9) 04/22/22 02:53 GFR Calculation 117.4 mL/min (90-130) 04/22/22 02:53 Glucose 93 mg/dL (65-115) 04/22/22 02:53 Calculated Osmolality 288 mOsm/kg (285-295) 04/22/22 02:53 Calcium 9.9 mg/dL (8.5-10.5) 04/22/22 02:53 Total Bilirubin 0.4 mg/dL (0.15-1.2) 04/22/22 02:53 AST 24 U/L (0-32) 04/22/22 02:53 ALT 15 U/L (0-33) 04/22/22 02:53 Alkaline Phosphatase 87 U/L (35-105) 04/22/22 02:53 Total Protein 8.2 g/dL (6.6-8.7) 04/22/22 02:53 Albumin 5.2 g/dL (3.5-5.2) 04/22/22 02:53 Globulin 3.0 g/dL (1.3-4.6) 04/22/22 02:53 Ser , Semi-Qnt 1.00 mIU/mL 04/22/22 02:53 Discharge Plan Discharge Patient Disposition: Home Clinical Impression: Vaginal bleeding, Uterine fibroid Condition: Stable Prescriptions: No Action multivitamin Tablet 1 tab PO DAILY midodrine 2.5 mg tablet 2.5 mg PO BID Qty: 60 6RF buspirone 5 mg tablet 5 mg PO BID Qty: 60 6RF (DME) Walking shoe See Rx Instructions .Route .MEDSUPPLY Qty: 1 0RF Rx Instructions: As directed fluticasone propionate [Children's Flonase Allergy Rlf] 50 mcg/actuation spray,suspension 2 spray intranasal DAILY Qty: 16 0RF Rx Instructions: administer into each nostril ibuprofen 600 mg tablet 600 mg PO Q6H PRN (Reason: fever or pain) Qty: 30 0RF ondansetron 4 mg tablet,disintegrating 4 mg PO Q8H PRN (Reason: nausea and vomiting) Qty: 30 0RF fluconazole [Diflucan] 100 mg tablet 100 mg PO Q72H Qty: 2 0RF doxycycline monohydrate 100 mg capsule 100 mg PO BID Qty: 14 0RF amoxicillin-pot clavulanate 875-125 mg tablet 1 tab PO BID Qty: 20 0RF fluticasone propionate 50 mcg/actuation [place],Suspension 1 spray INTRANASAL BID albuterol sulfate [ProAir HFA] 90 mcg/actuation HFA aerosol inhaler 2 puff INHALATION Q4H PRN (Reason: Shortness Of Breath) vitamin S55-mgtvt acid 0.5-1 mg Tablet 1 tab PO DAILY promethazine 25 mg tablet 25 mg PO Q6H PRN (Reason: nausea and vomiting) Qty: 20 0RF tizanidine 4 mg capsule 4 mg PO Q6H PRN (Reason: muscle spasticity) Qty: 20 0RF Rx Instructions: do not exceed 3 doses per 24 hrs diclofenac sodium 75 mg tablet,delayed release (DR/EC) 75 mg PO Q12H PRN (Reason: pain) Qty: 20 0RF Discharge Orders: Discharge ED (Routine); Ordered 04/22/22 Ordered By: Merced Grimes Referrals: Ilya Almanza MD [Primary Care Provider] - 1-3 days Discharge Diet: Advance as tolerated Discharge Activity: Resume usual activity Patient Instructions: Abnormal (Dysfunctional) Uterine Bleeding (ED) Coding Level of Care Code ED End User Consultant for Chg Fwd Exam Comprehensive
[2022-04-22 03:00] LABS: Basophils # 0.1 10^3/uL (0.0-0.1); Basophils % 0.8 %; Eosinophils # 0.4 10^3/uL (0.0-0.8); Eosinophils % 4.3 %; Hematocrit 41.6 % (37.0-47.0); Hemoglobin 13.1 g/dL (11.5-15.3); Lymphocytes # 2.5 10^3/uL (0.8-4.8); Lymphocytes % 30.1 %; Mean Corpuscular HGB Conc 31.5 g/dL (30.0-36.0); Mean Corpuscular Hemoglobin 28.1 pg (28.0-34.0); Mean Corpuscular Volume 89.3 fl (81-99); Mean Platelet Volume 10.1 fL (7.4-10.4); Monocytes # 0.6 10^3/uL (0.2-0.9); Monocytes % 7.6 %; Neutrophils % 57.1 %; Nucleated Red Blood Cells % 0 %; Platelet Count 317 10^3/cmm (130-400); Red Blood Count 4.66 10^6/uL (4.1-5.3); Red Cell Distribution Width 13.3 % (12.1-15.1); White Blood Count 8.4 10^3/uL (4.0-10.0)
--- NOTE | 2022-04-22 03:03 | USR_ITS ---
PROCEDURE INFORMATION: Exam: US Duplex Artery or Vein of the Abdominal and/or Reproductive Organs, Limited Exam date and time: 04/22/2022 3:15 AM Age: 31 years old Clinical indication: Menstruation abnormalities; Excessive menstruation; With regular cycle; Pelvic pain; Prior surgery; Surgery date: 6+ months; Surgery type: Tubal ligation following second 04/15/2021; Patient HX: Hypermenorrhea with excessive cramping; Periods are regular but usually light. This period is heavy. ; Additional info: Vaginal bleeding TECHNIQUE: Imaging protocol: Real-time duplex ultrasound scan of the arterial or venous flow of the abdomen and/or reproductive organs, with color Doppler flow and spectral waveform analysis with image documentation. Exam focused on the region of clinical interest. Duplex exam was performed to evaluate for vascular conditions. COMPARISON: US pelvic complete* [id number] 03/29/2018 1:00 PM FINDINGS: The uterus measures 7.3 cm in length. Couple of presumed uterine fibroids visualized. 23 x 18 mm lesion in the right lateral fundus. 19 x 11 mm lesion in the left lateral fundus. No definite intrauterine fluid. Endometrial thickness is 6.5 mm. Very small amount of free pelvic fluid. The right ovary measures 30 x 12 x 29 mm, estimated volume 5.4 cc. The right ovary appears essentially unremarkable. The left ovary measures 30 x 16 x 29 mm, estimated volume 7.4 cc. The left ovary contains a 12 x 8 mm dominant follicle versus very small cyst. Significance unlikely due to small size. Ovarian blood flow was evaluated with color and spectral Doppler imaging. Arterial blood flow detected within each ovary. The urinary bladder was not completely evaluated/imaged at this time. Endovaginal scanning provided better visualization/evaluation of the endometrium and ovaries/adnexal regions, as discussed above. PROCEDURE INFORMATION: Exam: US Pelvis Complete, Transabdominal and US Pelvis, Transvaginal Exam date and time: 04/22/2022 3:15 AM Age: 31 years old Clinical indication: Menstruation abnormalities; Excessive menstruation; With regular cycle; Pelvic pain; Prior surgery; Surgery date: 6+ months; Surgery type: Tubal ligation following second 04/15/2021; Patient HX: Hypermenorrhea with excessive cramping; Periods are regular but usually light. This period is heavy. ; Additional info: Vaginal bleeding TECHNIQUE: Imaging protocol: Real-time complete transabdominal and transvaginal pelvic ultrasound with image documentation. Transvaginal imaging was used for better evaluation of the endometrium, adnexa, and/or cervix. COMPARISON: US pelvic complete* [id number] 03/29/2018 1:00 PM FINDINGS: The uterus measures 7.3 cm in length. Couple of presumed uterine fibroids visualized. 23 x 18 mm lesion in the right lateral fundus. 19 x 11 mm lesion in the left lateral fundus. No definite intrauterine fluid. Endometrial thickness is 6.5 mm. Very small amount of free pelvic fluid. The right ovary measures 30 x 12 x 29 mm, estimated volume 5.4 cc. The right ovary appears essentially unremarkable. The left ovary measures 30 x 16 x 29 mm, estimated volume 7.4 cc. The left ovary contains a 12 x 8 mm dominant follicle versus very small cyst. Significance unlikely due to small size. Ovarian blood flow was evaluated with color and spectral Doppler imaging. Arterial blood flow detected within each ovary. The urinary bladder was not completely evaluated/imaged at this time. Endovaginal scanning provided better visualization/evaluation of the endometrium and ovaries/adnexal regions, as discussed above. US/US pelvic complete* [id number] IMPRESSION: 1. 2 presumed uterine fibroids, details above. 2. The left ovary contains a 12 x 8 mm dominant follicle versus very small cyst. 3. Otherwise, essentially unremarkable sonographic appearance of the and ovaries. 4. Blood flow detected in each ovary. 5. Very small amount of free pelvic fluid. 6. Other details discussed above.
--- NOTE | 2022-04-22 03:06 | PC.NURSE ---
patient resting. no needs at this time. blanket provided.
[2022-04-22 03:30] LABS: Alanine Aminotransferase 15 U/L (0-33); Albumin Level 5.2 g/dL (3.5-5.2); Alkaline Phosphatase 87 U/L (35-105); Anion Gap 15.4 (5-19); Aspartate Amino Transferase 24 U/L (0-32); Blood Urea Nitrogen 13 mg/dL (6-20); Calcium 9.9 mg/dL (8.5-10.5); Carbon Dioxide 26 mmol/L (22-29); Chloride 101 mmol/L (98-107); Glomerular Filtration Rate 117.4 mL/min (90-130); Glucose 93 mg/dL (65-115); Osmolality Calculated 288 mOsm/kg (285-295); Potassium 3.4 mmol/L (3.5-5.1); Sodium 139 mmol/L (136-145); Total Bilirubin 0.4 mg/dL (0.15-1.2); Total Protein 8.2 g/dL (6.6-8.7)
[2022-04-22 04:29] VITALS: BP 110/64; PULSE 71; RESP 16; O2SAT 99
[2022-04-22 05:00] VITALS: BP 129/73
--- NOTE | 2022-04-22 09:23 | DCPLANNER ---
Addendum entered by Erica Bernstein 04/30/22 15:58: Patient had a follow up appointment scheduled with [facility] - patient did attend appointment. Original Note: manager business operations had message to schedule a follow up appointment for patient with [facility]. manager business operations sent patients information to the front office staff at [facility]. Patients information will be printed and reviewed. Clinic will call patient with appointment information.
== END 2022-04-22 05:11 | disposition home or self-care (01) ==
PROVIDERS: Emergency Provider Emergency Medicine; PCP Family Medicine
DX: N93.9 Abnormal uterine and vaginal bleeding, unspecified (principal); D25.9 Leiomyoma of uterus, unspecified
CPT/HCPCS: 76856; 80053; 84702; 85025; 99284; E0352

== ENCOUNTER 2022-04-22 16:24 | Emergency (ER) | payer BC, MEDICAID, SELFPAY ==
[2022-04-22 16:29] VITALS: BP 115/70; PULSE 73; RESP 16; TEMP 36.7; O2SAT 99
[2022-04-22 17:01] VITALS: BP 101/62; O2SAT 100
--- NOTE | 2022-04-22 17:02 | W.ED.SYNCOPE ---
HPI - Syncope General: Chief Complaint: Syncope Stated Complaint: light headed/dizzy Time Seen by Provider: 04/22/22 16:33 Source: patient Mode of arrival: ambulatory Limitations: no limitations History of Present Illness: Patient returns to the emergency department because she had a syncopal episode. She apparently was seen in the emergency department earlier today about abnormal vaginal bleeding. She was discharged home and states that she spent much of the day in bed but states she did get up occasionally. She states that she was getting up to get ready for work approximately 330 or 340 when she became lightheaded and states that she passed out falling back on the bed. She denied any prodrome to include palpitations, chest pain etc. She does not have a history of syncope previously. She states she is having heavy vaginal bleeding for the last 2 days. She has a history of prior C-sections x2 and tubal ligation but no other significant past medical history. REPLACED BY [facility] PFSH: Medical History Generalized anxiety disorder Mild intermittent asthma Post depression Post-traumatic stress disorder, chronic Psychiatric care Repeated concussion of brain Vaccination reaction Patient reports bad reaction to flu shot around 2016 requiring going to the hospital Surgical History H/O myringotomy with tube placement - x2-as an : performed in [place] History of delivery x 2 06/16/2016 - Low transverse section. Diagnosis: Cephalopelvic disproportion with contracted inlet. Performed by Dr. Roberto Kuo at [facility] in [place], [place]. Documented low transverse section with 2 layer closure of uterine incision. Right-sided inferior extension of the uterine incision. 04/15/2021--repeat low transverse delivery with tubal ligation by Dr. Holman at [facility] when patient presented in labor History of knee surgery 2012 - [place], [place] History of laparoscopy 02/18/2017: Hysteroscopy, dilation and curettage, diagnostic laparoscopy with lysis of adhesions on 02/18/2017 for chronic pelvic pain done by Dr Holman at [facility]. On hysteroscopy no abnormalities identified-curettage done-pathology pending. On laparoscopy filmy adhesions of the colon onto the left lower quadrant which was taken down. No other abnormalities noted. Uterus, tubes and ovaries appeared within normal limits. No signs of endometriosis. -Pathology on D&C showed polypoid endometrial mucosal fragments with weakly proliferative endometrium and scattered chronic inflammatory cells-mild chronic endometritis. History of left knee surgery 2012 - [place], [place] History of tonsillectomy and adenoidectomy as an - Performed in [place] Status post tubal ligation 04/15/2021--bilateral total salpingectomy for sterilization performed at time of second by Dr. Holman at [facility]. Pathology showed-----> complete tubes with full qpzbe-[id number]-[id number] malignancy Family History Grandfather Cancer Liver cancer Family/Other Cancer Grandmother Hypertension Denies family history of Diabetes CAD (coronary artery disease) Clotting disorder Dementia Hyperlipidemia Psychiatric illness Chronic kidney disease (CKD) Suicide Anesthesia complication Bleeding disorder Family history of premature coronary artery disease Lung disease Stroke Social History Smoking and tobacco status: never smoked Alcohol intake: never Female Reproductive History: Date of last menstrual period: 04/22/22 Physical Exam Narrative: EXAM NARRATIVE: She is alert and in no acute distress makes good eye contact speech is goal-directed. Const: COMMON NORMALS: no acute distress, patient oriented x3, healthy appearing and alert GENERAL APPEARANCE: cooperative and comfortable NUTRITIONAL APPEARANCE: thin HENMT: COMMON NORMALS: normocephalic, atraumatic, Normal nasal mucous membranes and turbinates present and moist oral mucous membranes HEAD & SCALP: normal to inspection, normocephalic and atraumatic FACE & SINUS: normal facial exam NOSE: Normal nasal mucous membranes and turbinates present Eye: COMMON NORMALS: Equal, round and reactive pupils present, EOMs intact bilaterally and conjunctivae normal CONJUNCTIVA: Yes conjunctivae normal PUPIL: Yes Equal, round and reactive pupils present Neck/C-Spine: COMMON NORMALS: full ROM, no lymphadenopathy, supple and No carotid bruits Chest: COMMONS NORMALS: normal inspection of the chest Resp: COMMON NORMALS: normal respiratory effort, No use of accessory muscles and clear to auscultation bilaterally AUSCULTATION: clear to auscultation bilaterally Cardio: COMMON NORMALS: regular rate, regular rhythm, No clicks present (Cardio), No murmurs present (Cardio) and Peripheral pulses 2+ throughout RATE: regular rate RHYTHM: regular rhythm PERIPHERAL PULSES: Peripheral pulses 2+ throughout GI: COMMON NORMALS: Normal to inspection, nondistended, normoactive bowel sounds present, Soft to palpation, non-tender, No hepatosplenomegaly present and no masses PALPATION: Yes Soft to palpation and Yes No hepatosplenomegaly present : COMMON NORMALS: Yes no CVA tenderness BLADDER/KIDNEY EXAM: Yes no CVA tenderness Back/Pelvis: COMMON NORMALS: no CVA tenderness, thoracic and lumbar spine normal to inspection, no thoracic nor lumbar tenderness and thoraco-lumbar ROM normal Extremity: COMMON NORMALS: normal to inspection, full ROM, capillary refill normal, no calf tenderness and no pedal edema Neuro: COMMON NORMALS: patient oriented x3, moves all extremities, no focal motor deficits and no sensory deficits noted SENSORIUM/ORIENTATION: Yes alert SPEECH: speech normal Psych: COMMON NORMALS: mental status grossly normal Skin: COMMON NORMALS: no rashes or lesions noted, no wounds and turgor normal GENERAL SKIN EXAM: no rashes or lesions noted and turgor normal Course Reevaluation(s): Reevaluation #1: Laboratories are reassuring. She does still complain of subjective lightheadedness with ambulation. Go[place]en give her a liter of fluids and reassess. No evidence at this time to suggest arrhythmia etc. Time: 18:17 Reevaluation #2: Patient received a liter of IV fluids. She states she feels improved. Portable bedside ultrasound was used to evaluate pelvis for any signs of free fluid. No free fluid was noted in either the AP or sagittal views. She had a good sonographic window through a bladder there is noted to have approximately 200 mL of urine. I discussed current findings and reassuring hemoglobin compared with earlier today. I discussed that potentially fibroids can cause some menorrhagia or mental menorrhagia but certainly at this time she has no evidence of other conditions of concern. She apparently has a follow-up appointment with her primary care doctor tomorrow afternoon. We will give her a dose of Toradol at this time to help with any cramping and discharge her in a stable condition. Time: 19:31 Vital Signs: Vital signs: Vital Signs Temperature 98.0 F 04/22/22 16:29 Pulse Rate 67 04/22/22 19:06 Respiratory Rate 16 02/01/23 19:06 Blood Pressure 99/63 04/22/22 19:06 Pulse Oximetry 100 04/22/22 19:06 Oxygen Delivery Me thod 04/22/22 17:30 MDM - Syncope Medical Decision Making History ofThis patient returns to the emergency department syncope. Patient was seen earlier the same day because of menorrhagia. Her evaluation was very reassuring without any evidence of ectopic , significant anemia or other concerning findings at that time. She apparently returned home and slept off and on for much of the day and then states that she got up to go to work and had a syncopal episode without prodrome. There was no history of injury, suggestion of seizure activity with no evidence of loss of bowel or bladder control, intraoral injury etc. Repeat evaluation in our emergency department to include clued prolonged observation did not reveal any evidence of arrhythmia, significant or demonstrable change in her hemoglobin from earlier today and or any evidence of free fluid in her abdomen aching such things as ruptured ovarian cyst etc. with significant bleeding likely at this time. The patient received along to observation, IV fluids and reassessment and she was stable at this time for discharge with outpatient follow-up. Medical Records I reviewed the patient's medical records. Lab Data I reviewed the patient's lab results. 04/22/22 17:13 Laboratory Results WBC 5.3 10^3/uL (4.0-10.0) 04/22/22 17:13 RBC 4.62 10^6/uL (4.1-5.3) 04/22/22 17:13 Hgb 13.0 g/dL (11.5-15.3) 04/22/22 17:13 Hct 41.1 % (37.0-47.0) 04/22/22 17:13 MCV 89.0 fl (81-99) 04/22/22 17:13 MCH 28.1 pg (28.0-34.0) 04/22/22 17:13 MCHC 31.6 g/dL (30.0-36.0) 04/22/22 17:13 RDW 13.2 % (12.1-15.1) 04/22/22 17:13 Plt Count 292 10^3/cmm (130-400) 04/22/22 17:13 MPV 10.3 fL (7.4-10.4) 04/22/22 17:13 Neut % (Auto) 56.7 % 04/22/22 17:13 Lymph % (Auto) 27.3 % 04/22/22 17:13 Mineral % (Auto) 9.6 % 04/22/22 17:13 Eos % (Auto) 5.1 % 04/22/22 17:13 Baso % (Auto) 1.1 % 04/22/22 17:13 Neut # (Auto) 3.02 10^3/uL (1.8-7.7) 04/22/22 17:13 Lymph # (Auto) 1.5 10^3/uL (0.8-4.8) 04/22/22 17:13 Mineral # (Auto) 0.5 10^3/uL (0.2-0.9) 04/22/22 17:13 Eos # (Auto) 0.3 10^3/uL (0.0-0.8) 04/22/22 17:13 Baso # (Auto) 0.1 10^3/uL (0.0-0.1) 04/22/22 17:13 Nucleated RBC % (auto) 0 % 04/22/22 17:13 Nucleated RBCs # 0.0 /100WBC 04/22/22 17:13 EKG Data EKG 1: I personally reviewed and interpreted this EKG as follows: Interpretation: Contemporaneous review of resting EKG reveals ventricular rate of 67 bpm. Normal MT interval, QRS duration. Normal corrected QT interval. Normal axis. No evidence of any proarrhythmic findings or any ischemic changes on this EKG at this time. Discharge Plan Discharge Patient Disposition: Home Clinical Impression: Non-cardiac syncope, Fibroid, uterine, Menorrhagia Condition: Stable Prescriptions: No Action multivitamin Tablet 1 tab PO DAILY midodrine 2.5 mg tablet 2.5 mg PO BID Qty: 60 6RF buspirone 5 mg tablet 5 mg PO BID Qty: 60 6RF (DME) Walking shoe See Rx Instructions .Route .MEDSUPPLY Qty: 1 0RF Rx Instructions: As directed fluticasone propionate [Children's Flonase Allergy Rlf] 50 mcg/actuation spray,suspension 2 spray intranasal DAILY Qty: 16 0RF Rx Instructions: administer into each nostril ibuprofen 600 mg tablet 600 mg PO Q6H PRN (Reason: fever or pain) Qty: 30 0RF ondansetron 4 mg tablet,disintegrating 4 mg PO Q8H PRN (Reason: nausea and vomiting) Qty: 30 0RF fluconazole [Diflucan] 100 mg tablet 100 mg PO Q72H Qty: 2 0RF doxycycline monohydrate 100 mg capsule 100 mg PO BID Qty: 14 0RF amoxicillin-pot clavulanate 875-125 mg tablet 1 tab PO BID Qty: 20 0RF fluticasone propionate 50 mcg/actuation [place],Suspension 1 spray INTRANASAL BID albuterol sulfate [ProAir HFA] 90 mcg/actuation HFA aerosol inhaler 2 puff INHALATION Q4H PRN (Reason: Shortness Of Breath) vitamin R34-ceqsy acid 0.5-1 mg Tablet 1 tab PO DAILY promethazine 25 mg tablet 25 mg PO Q6H PRN (Reason: nausea and vomiting) Qty: 20 0RF tizanidine 4 mg capsule 4 mg PO Q6H PRN (Reason: muscle spasticity) Qty: 20 0RF Rx Instructions: do not exceed 3 doses per 24 hrs diclofenac sodium 75 mg tablet,delayed release (DR/EC) 75 mg PO Q12H PRN (Reason: pain) Qty: 20 0RF Discharge Orders: Discharge ED (Routine); Ordered 04/22/22 Ordered By: Mikey Zimmer Referrals: Ilya Almanza MD [Primary Care Provider] - 1-3 days (See ED records) Discharge Diet: Usual diet Discharge Activity: Increase activity as tolerated Patient Instructions: Opioid Safety, Pain Management Activity Restrictions/Additional Instructions: As we discussed no evidence this evening that suggest a serious cause of your syncopal episode that occurred today. We recommend following up with your doctor as scheduled to discuss additional treatment for your menorrhagia and/or referral to gynecology if indicated. If you develop any episodes of palpitations, lightheadedness, passing out etc. return to this or the nearest emergency department. Coding Level of Care Code ED On Air Host for Cecilia Pierre
[2022-04-22 17:21] LABS: Basophils # 0.1 10^3/uL (0.0-0.1); Basophils % 1.1 %; Eosinophils # 0.3 10^3/uL (0.0-0.8); Eosinophils % 5.1 %; Hematocrit 41.1 % (37.0-47.0); Lymphocytes # 1.5 10^3/uL (0.8-4.8); Lymphocytes % 27.3 %; Mean Corpuscular HGB Conc 31.6 g/dL (30.0-36.0); Mean Corpuscular Hemoglobin 28.1 pg (28.0-34.0); Mean Platelet Volume 10.3 fL (7.4-10.4); Monocytes # 0.5 10^3/uL (0.2-0.9); Monocytes % 9.6 %; Neutrophils # 3.02 10^3/uL (1.8-7.7); Neutrophils % 56.7 %; Nucleated Red Blood Cells % 0 %; Platelet Count 292 10^3/cmm (130-400); Red Blood Count 4.62 10^6/uL (4.1-5.3); Red Cell Distribution Width 13.2 % (12.1-15.1); White Blood Count 5.3 10^3/uL (4.0-10.0)
--- NOTE | 2022-04-22 17:29 | ECG_ITS ---
[facility] Test Date: 2022-04-22 Pat Name: Emerita Weston Department: Room: Gender: Female Hand Candy Dipper: : 1990 Requested By: Mikey Zimmer Order Number: [id number] Celeste MD: Андрей Zavala M.D. Measurements Intervals [place] Rate: 67 P: 76 NC: 165 QRS: 84 QRSD: 88 T: 66 QT: 379 QTc: 401 Interpretive Statements SINUS RHYTHM POSSIBLE LEFT ATRIAL ENLARGEMENT [-0.1mV P-WAVE IN V1/V2] No previous ECG available for comparison Electronically Signed On 04-22-2022 17:42:11 PAPER FOLDER by Андрей Zavala M.D. [email or web address]
[2022-04-22 17:30] VITALS: BP 101/67; PULSE 71; O2SAT 98
[2022-04-22 18:00] VITALS: BP 103/66; PULSE 68; O2SAT 100
[2022-04-22] MEDS: sodium chloride 0.9% 1,000 ML 999 ML IV (18:23)
[2022-04-22 19:06] VITALS: BP 99/63; PULSE 67; RESP 16; O2SAT 100
[2022-04-22] MEDS: ketorolac 30 mg/mL INJ 15 MG IVP (19:35)
== END 2022-04-22 19:43 | disposition home or self-care (01) ==
PROVIDERS: Emergency Provider Emergency Medicine; PCP Family Medicine
DX: R55 Syncope and collapse (principal); D25.9 Leiomyoma of uterus, unspecified; N92.0 Excessive and frequent menstruation with regular cycle
CPT/HCPCS: 36415; 85025; 93005; 96361; 96374; 99284; J1885; J7030

== ENCOUNTER → 2022-04-23 14:46 | Outpatient (BNVA) | payer BC, MEDICAID, SELFPAY | PROVIDERS: PCP Family Medicine; Visit Provider Family Medicine | DX: N92.0 Excessive and frequent menstruation with regular cycle (principal); Z51.81 Encounter for therapeutic drug level monitoring | CPT/HCPCS: 85025 ==

== ENCOUNTER → 2022-05-14 11:13 | Outpatient (BNVA) | payer BC, MEDICAID, SELFPAY | PROVIDERS: PCP Family Medicine; Visit Provider Family Medicine | DX: Z51.81 Encounter for therapeutic drug level monitoring (principal); R42 Dizziness and giddiness | CPT/HCPCS: 80053; 85025; 85651 ==

== ENCOUNTER → 2022-05-20 10:00 | Outpatient (BNVA) | payer BC, MEDICAID, SELFPAY | PROVIDERS: PCP Family Medicine; Visit Provider Obstetrics & Gynecology | DX: D21.9 Benign neoplasm of connective and other soft tissue, unspecified (principal) | CPT/HCPCS: 84443; 85025 ==

== ENCOUNTER 2022-07-07 14:07 | Inpatient (IN) | payer BC, MEDICAID, SELFPAY ==
[2022-07-06 10:03] VITALS: BMI 20.2
[2022-07-06 10:40] LABS: Basophils # 0.1 10^3/uL (0.0-0.1); Basophils % 1.2 %; Eosinophils # 0.5 10^3/uL (0.0-0.8); Eosinophils % 7.9 %; Hematocrit 38.6 % (37.0-47.0); Hemoglobin 12.2 g/dL (11.5-15.3); Lymphocytes # 2.1 10^3/uL (0.8-4.8); Lymphocytes % 36.8 %; Mean Corpuscular HGB Conc 31.6 g/dL (30.0-36.0); Mean Corpuscular Hemoglobin 27.9 pg (28.0-34.0); Mean Corpuscular Volume 88.1 fl (81-99); Mean Platelet Volume 10.3 fL (7.4-10.4); Monocytes # 0.4 10^3/uL (0.2-0.9); Monocytes % 7.1 %; Neutrophils # 2.71 10^3/uL (1.8-7.7); Neutrophils % 46.8 %; Nucleated Red Blood Cells % 0 %; Platelet Count 299 10^3/cmm (130-400); Red Blood Count 4.38 10^6/uL (4.1-5.3); Red Cell Distribution Width 13.2 % (12.1-15.1); White Blood Count 5.8 10^3/uL (4.0-10.0)
[2022-07-06 10:49] LABS: Anion Gap 11.7 (5-19); Blood Urea Nitrogen 19 mg/dL (6-20); Calcium 8.9 mg/dL (8.5-10.5); Carbon Dioxide 26 mmol/L (22-29); Chloride 101 mmol/L (98-107); Glomerular Filtration Rate 187.4 mL/min (90-130); Glucose 98 mg/dL (65-115); Osmolality Calculated 282 mOsm/kg (285-295); Potassium 3.7 mmol/L (3.5-5.1); Sodium 135 mmol/L (136-145)
--- NOTE | 2022-07-06 15:26 | ANES.PREANE2 ---
Pre-Anesthetic Assessment Height/Weight: Height 1.63 m Weight 53.524 kg Operation Date: 07/07/22 07:00 Proposed Procedures p Total abdominal hysterectomy 41869, D25.9,N92.0(Not Applicable) - Ximena Mccord MD Familial anesthetic complications: none Was Beta Shane taken within 24 hours: N/A Was Clonidine taken within 24 hours: N/A Social No alcohol and No tobacco Exam alert, oriented x 3, clear to auscultation bilaterally and regular rate & rhythm Airway Submandibular: within normal limits Cervical ROM: within normal limits Mallampati: Class I Dentition: full Pulmonary Asthma Neuropsych Anxiety Anesthetic Plan ASA status: 2 Anesthesia: General Medications/Allergies Home Medications Medication Instructions Recorded Confirmed Last Taken Type albuterol sulfate 90 mcg/actuation 2 puff inhalation Q4H PRN 04/07/20 07/06/22 03/23/21 History aerosol inhaler (ProAir HFA) Shortness Of Breath meclizine 25 mg tablet 25 mg PO BID PRN dizziness #60 tabs 05/04/22 07/06/22 Unknown Rx Allergies Allergy/AdvReac Type Severity Reaction Status Date / Time influenza virus vaccine, Allergy Unknown Verified 06/22/22 11:44 specific Sulfa (Sulfonamide Allergy ALGY-Hives Verified 06/22/22 11:44 Antibiotics) [facility] Anesthesia Medical History Generalized anxiety disorder Menorrhagia Mild intermittent asthma Post depression Post-traumatic stress disorder, chronic Psychiatric care Repeated concussion of brain Vaccination reaction Patient reports bad reaction to flu shot around 2016 requiring going to the hospital Surgical History H/O myringotomy with tube placement - x2-as an infant: performed in [place] History of delivery x 2 06/16/2016 - Low transverse section. Diagnosis: Cephalopelvic disproportion with contracted inlet. Performed by Dr. Roberto Kuo at [facility] in [place], [place]. Documented low transverse section with 2 layer closure of uterine incision. Right-sided inferior extension of the uterine incision. 04/15/2021--repeat low transverse delivery with tubal ligation [place] Dr. Holman [place] [facility] when patient presented in labor History of knee surgery 2012 - [place], [place] History of laparoscopy 02/18/2017: Hysteroscopy, dilation and curettage, diagnostic laparoscopy with lysis of adhesions on 02/18/2017 for chronic pelvic pain done by Dr Holman at [facility]. On hysteroscopy no abnormalities identified-curettage done-pathology pending. On laparoscopy filmy adhesions of the colon onto the left lower quadrant which was taken down. No other abnormalities noted. Uterus, tubes and ovaries appeared within normal limits. No signs of endometriosis. -Pathology on D&C showed polypoid endometrial mucosal fragments with weakly proliferative endometrium and scattered chronic inflammatory cells-mild chronic endometritis. History of left knee surgery 2012 - [place], [place] History of tonsillectomy and adenoidectomy as an infant- Performed in [place] Status post tubal ligation 04/15/2021--bilateral total salpingectomy for sterilization performed at time of second by Dr. Holman at [facility]. Pathology showed-----> complete tubes with full [id number]-nq malignancy Family History Grandfather Cancer Liver cancer Family/Other Cancer Grandmother Hypertension Denies family history of Colon cancer Ovarian cancer Diabetes Heart disease Hypercholesteremia Breast cancer Uterine cancer Thyroid disease Stroke Data Anesthesia 07/06/22 10:10 07/06/22 10:10 Short CBC 07/06/22 Range/Units 10:10 WBC 5.8 (4.0-10.0) 10^3/uL Hgb 12.2 (11.5-15.3) g/dL Hct 38.6 (37.0-47.0) % MCV 88.1 (81-99) fl Plt Count 299 (130-400) 10^3/cmm Neut % (Auto) 46.8 % Neut # (Auto) 2.71 (1.8-7.7) 10^3/uL BMP 07/06/22 10:10 Sodium 135 L Potassium 3.7 Chloride 101 Carbon Dioxide 26 BUN 19 Creatinine 0.4 L Glucose 98 Calcium 8.9 Blood Bank 07/06/22 10:10 Blood Type A Positive Rho(D) Type Positive Antibody Screen Negative Cardiac Studies: No Data to Display
[2022-07-07] VITALS (20 sets, daily range): BP systolic 93–117; BP diastolic 41–78; PULSE 14–90; RESP 12–61; TEMP 36.2–37.1; O2SAT 94–100
[2022-07-07] MEDS: acetaminophen 1,000 MG/100 ML PIGGYBACK 400 MG IV (06:25)
[2022-07-07] MEDS: CELEcoxib 200 mg Capsule 400 MG PO (06:25)
[2022-07-07] MEDS: sodium chloride 0.9% 1,000 ML 30 ML IV (06:25)
[2022-07-07] MEDS: phenazopyridine 100 mg Tablet 200 MG PO ×3 (06:26→21:16)
[2022-07-07] MEDS: gabapentin 300 mg Capsule PO (06:26)
[2022-07-07] MEDS: scopolamine 1.5 Patch 1 PATCH TRANSDERMA (06:27)
[2022-07-07 06:38] LABS: OR HCG Qualitative Urine Negative (Negative)
--- NOTE | 2022-07-07 07:03 | W.PM.OPSUD ---
Surgery/Procedure H&P Update DATE OF PROCEDURE: July 07, 2022 DATE H&P PERFORMED: 07/06/22 H&P UPDATE INFORMATION: I have reviewed H&P completed within last 30 days, I have examined patient prior to procedure and No changes to prior documentation PREOP DIAGNOSIS: uterine fibroids, AUB, abdominal pain PLANNED PROCEDURE: Operation Date: 07/07/22 07:00 Proposed Procedures p Total abdominal hysterectomy 96079, D25.9,N92.0(Not Applicable) - Ximena Mccord MD Related Problem List Diagnoses (1) Abdominal pain: Qualifiers: Abdominal location: lower abdomen, unspecified Qualified Code(s): R10.30 - Lower abdominal pain, unspecified (2) Menorrhagia: (3) Uterine fibroid: Qualifiers: Uterine leiomyoma location: unspecified location Qualified Code(s): D25.9 - Leiomyoma of uterus, unspecified
[2022-07-07] MEDS: ceFAZolin 2,000 MG in sodium chloride 0.9% (plus) 50 ML 100 MG IV ×3 (07:10→22:22)
--- NOTE | 2022-07-07 09:24 | P.ANESUD_ITS ---
Pre-Anesthetic Update Pre-Anesthetic Assessment: Date of Surgery/Procedure: 07/07/22 Preop Isha gnosis: uterine fibroids, AUB, abdominal pain Proposed Procedure: Operation Date: 07/07/22 07:00 Proposed Procedures p Total abdominal hysterectomy 68916, D25.9,N92.0(Not Applicable) - Ximena Mccord MD Any changes to Pre-Anesthetic Assessment?: No Last Intake: Intake Last Liquid Date 07/06/22 Last Liquid Time 22:30 Last Solid Date 07/06/22 Last Solid Time 19:30 Labs Last 48hrs: Short CBC 07/06/22 Range/Units 10:10 WBC 5.8 (4.0-10.0) 10^3/ uL Hgb 12.2 (11.5-15.3) g/dL Hct 38.6 (37.0-47.0) % MCV 88.1 (81-99) fl Plt Count 299 (130-400) 10^3/c mm Neut % (Auto) 46.8 % Neut # (Auto) 2.71 (1.8-7.7) 10^3/u L BMP 07/06/22 10:10 Sodium 135 L Potassium 3.7 Chloride 101 Carbon Dioxide 26 BUN 19 Creatinine 0.4 L Glucose 98 Calcium 8.9 Blood Bank 07/06/22 10:10 Blood Type A Positive Rho(D) Type Positive Antibody Screen Negative Vitals: Temperature 97.8 F 07/07/22 06:10 Temperature Source Temporal Artery S can 07/07/22 06:10 Pulse Rate 75 07/07/22 06:10 Respiratory Rate 17 07/07/22 06:10 Blood Pressure 102/78 07/07/22 06:10 Blood Pressure Yamila n 86 07/07/22 06:10 Pulse Oximetry 100 07/07/22 06:10 Oxygen Delivery Me thod Room Air 07/07/22 06:11 Exam: Pre-Anes Outpt Exam: alert, oriented x 3, clear to auscultation bilaterally and regular rate & rhythm Cardiac Studies: No Data to Display
--- NOTE | 2022-07-07 09:34 | P.OP_ITS ---
Operative Report Date of procedure: July 07, 2022 Pre-op diagnosis: Preop Diagnosis uterine fibroids, AUB, abdominal pain Post-op diagnosis: same Post-op findings: Dense adhesions of the bladder and uterus to the colon. Densely adherent bladder to cervix Procedure done: BENJAMIN Specimens removed/disposition: Uterus to pathology Surgeon: Ximena Mccord Anesthesia: General Estimated blood loss (mL): 320 IV fluids (mL): 900 Urine output (mL): 200 Complications: none Findings: 10 week sized uterus, densely adherent to the bowel and bladder Condition: stable Disposition: PACU Procedure: The patient was taken to the operating room where general anesthesia was administered and found to be adequate. She was prepped and draped in the normal sterile fashion in the dorsal supine position. A gomes catheter was placed. A Pfannenstiel skin incision was made and carried down to the underlying layer of fascia. The fascia was nicked in the midline and extended laterally with the Sood scissors. The fascia was then tented up and the rectus muscles dissected off sharply. The rectus muscles were in the midline and the abdomen entered bluntly with the digit. This peritoneal incision was extended superiorly and inferiorly with good visualization of the bladder. The O'Stone-O'Grijalva retractor was placed. There were adhesions of the bowel to the bladder and uterus. These adhesions were taken down and the bowel packed away. The uterus was clamped bilaterally with a felecia clamp. The right round ligament was suture-ligated and opened. A window was made medial to the infundibulopelvic ligament and inferior to the ovary. The infundibulopelvic ligament was clamped cut and suture-ligated. Attention was then turned to the left adnexa. The was no round ligament present. A window was made medial to the infundibulopelvic ligament and inferior to the ovary. The infundibulopelvic ligament was clamped cut and suture-ligated. The bladder flap was densely adherent from her two previous sections. I was able to create a plane with the scalpel and metzenbaum scissors. The bladder was reflected caudally. The uterine arteries and cardinal ligaments were then clamped cut and suture- ligated down to the angle of the vagina. The vaginal cuff was clamped and cut and the specimen was removed. The vaginal cuff was closed with 0 Vicryl incorporating the uterosacral ligaments into the lateral aspects of the vaginal cuff. There was excellent hemostasis. The pelvis was irrigated. The O'Stone- O'Grijalva retractor as well as the packing was removed. The peritoneum was closed with 3-0 Monocryl in a running fashion. The fascia was closed with 0 Jon ryl in a running fashion with 2 separate sutures overlapping in the midline. The skin was closed 2-0 Vicryl. The patient tolerated the procedure well. Sponge lap and needle counts were correct x2. She was taken to the recovery room in stable condition.
[2022-07-07] MEDS: meperidine 50 mg/mL INJ 12.5 MG IVP (09:43)
--- NOTE | 2022-07-07 09:49 | PC.NURSE ---
patient spit oral airway out on arrival. Shivering treated with Demerol per order
[2022-07-07 09:59] LABS: Add Urine Microscopic? NO; Charge for UA Resulting for Rev
--- NOTE | 2022-07-07 10:30 | PC.NURSE ---
Patient received by STACEY. Reported patient does not have stat lock for gomes.
[2022-07-07 10:36] LABS: Bilirubin Urine Neg (Negative); Blood Urine Neg (Negative); Glucose Urine UA Norm (Normal); Ketones Urine Negative (Negative); Leukocyte Esterase Urine Negative (Negative); Nitrate Urine Negative (Negative); Protein Urine Neg (Negative); Sulfosalicylic Acid Urine Negative (Negative); Urine Appearance Clear (CLEAR); Urine Color Yellow (Yellow); Urobilinogen Urine Neg (Negative); pH Urine 8 (5-7)
--- NOTE | 2022-07-07 10:40 | SUR.PHASEI ---
1035-Patient moved from PACU to OPS to hold while waiting for a room. VS stable, patient is sleeping
[2022-07-07] MEDS: ondansetron 2 mg/ML SDV 2 mL 4 MG IVP (11:05)
[2022-07-07] MEDS: diphenhydrAMINE 50 mg/mL SDV 1mL 12.5 MG IVP (11:30)
[2022-07-07] MEDS: HYDROmorphone 1 mg/mL INJ 1 mL 0.5 MG IVP (11:37)
--- NOTE | 2022-07-07 12:00 | P.PCN_ITS ---
PACU note Narrative: VSS, Good respiratory effort, report to DIAPER FOLDER Exam: awake
--- NOTE | 2022-07-07 12:00 | PM.PACU ---
PACU note Narrative: VSS, Good respiratory effort, report to RIBBON CUTTER Exam: awake
--- NOTE | 2022-07-07 12:35 | PC.NURSE ---
Pt resting with eyes closed. VVS and charted. respirations noted with equal chest rise. Color pink. Pt. refused offer of lunch tray at 1130.
--- NOTE | 2022-07-07 14:45 | ANE.PACU2 ---
Inpatient post-anesthesia follow up: Airway intact: Yes Vital signs: Temperature 97.2 F Pulse Rate 59 Respiratory Rate 18 Blood Pressure 97/57 Pulse Oximetry 98 Oxygen Delivery Me thod Room Air Oxygen Flow Rate Fraction of Inspir ed Oxygen Hydration adequate: Yes Nausea and vomiting: No Pain level: 4 Mental status: Baseline
--- NOTE | 2022-07-07 15:04 | PC.NURSE ---
REPORT COLLIN CASEY2, PT TAKEN TO OB ROOM 11 VIA GURNEY, SETTLED IN BED AND CARE TURNED OVER.
[2022-07-07] MEDS: ketorolac 30 mg/mL INJ IVP ×2 (15:05→22:22)
[2022-07-07] MEDS: HYDROcodone-acetaminophen 5-325 mg Tablet PO (15:12)
[2022-07-07] MEDS: docusate sodium 100 mg Capsule PO (19:30)
[2022-07-07] MEDS: dextrose 5%-lactated ringers 1,000 ML 125 ML IV (19:30)
[2022-07-08] MEDS: dextrose 5%-lactated ringers 1,000 ML 125 ML IV (03:35)
[2022-07-08] MEDS: ketorolac 30 mg/mL INJ IVP (04:51)
[2022-07-08 05:03] VITALS: BP 90/50; PULSE 58; RESP 14
[2022-07-08 05:05] LABS: Hematocrit 26.2 % (37.0-47.0); Hemoglobin 8.3 g/dL (11.5-15.3); Mean Corpuscular HGB Conc 31.7 g/dL (30.0-36.0); Mean Corpuscular Hemoglobin 28.6 pg (28.0-34.0); Mean Corpuscular Volume 90.3 fl (81-99); Mean Platelet Volume 10.1 fL (7.4-10.4); Platelet Count 245 10^3/cmm (130-400); Red Cell Distribution Width 13.3 % (12.1-15.1); White Blood Count 9.7 10^3/uL (4.0-10.0)
[2022-07-08 07:15] VITALS: BP 103/63; PULSE 74; RESP 18; TEMP 37; O2SAT 97
[2022-07-08] MEDS: ibuprofen 800 mg tablet PO (07:27)
[2022-07-08] MEDS: docusate sodium 100 mg Capsule PO (07:27)
[2022-07-08] MEDS: HYDROcodone-acetaminophen 5-325 mg Tablet PO (07:27)
[2022-07-08] MEDS: phenazopyridine 100 mg Tablet 200 MG PO (07:30)
--- NOTE | 2022-07-08 10:50 | P.DS_ITS ---
Discharge Providers Date of Admission: 07/07/22 14:07 Date of Discharge: July 08, 2022 Attending Provider at Admission: Ximena Mccord MD Attending Provider at Discharge: Ximena Mccord MD Primary Care Provider: Ilya Almanza MD Diagnoses at Discharge Discharge Diagnosis (1) Abdominal pain: Status: Acute Qualifiers: Abdominal location: lower abdomen, unspecified Qualified Code(s): R10.30 - Lower abdominal pain, unspecified (2) Menorrhagia: Status: Acute (3) Uterine fibroid: Status: Acute Qualifiers: Uterine leiomyoma location: unspecified location Qualified Code(s): D25.9 - Leiomyoma of uterus, unspecified Reason for Visit Reason for Visit: D25.9, N92.0 Hospital Course Hospital Course The patient was admitted for surgery. She did well postoperatively and requested discharge on day #1 Physical Exam Narrative: The patient is doing well today. She has had her catheter removed. She is tolerating a regular diet. Pain is well controlled. Const: COMMON NORMALS: no acute distress, patient oriented x3, no limitations, healthy appearing, alert and well nourished GENERAL APPEARANCE: cooperative, comfortable, well kempt and well developed ORIENTATION/CONSCIOUSNESS: Yes awake, Yes oriented to person, Yes oriented to place and Yes oriented to time Resp: COMMON NORMALS: normal respiratory effort GI: COMMON NORMALS: Soft to palpation and non-tender PALPATION: Yes Soft to palpation Extremity: COMMON NORMALS: no calf tenderness Neuro: COMMON NORMALS: patient oriented x3 SENSORIUM/ORIENTATION: Yes alert, Yes oriented to person, Yes oriented to place and Yes oriented to time Psych: COMMON NORMALS: mental status grossly normal, Normal thought process present, cooperative, normal affect and speech normal APPEARANCE: Yes well kempt SPEECH: Yes normal speech THOUGHT PROCESS: Normal thought process present Urinary Catheter Management: Beckwith: Cath Placed During This Visit: yes, but has since been removed by the nurse Reason for Continuing Indwelling Catheter: Decision to DC Catheter Urinary Catheter Date of Insertion: 07/07/22 Urinary Catheter Time of Insertion: 07:30 Date Urinary Catheter Removed: 07/08/22 Time Urinary Catheter Discontinued: 05:02 Discharge Data Studies Completed and Pending Pending at discharge Category Date Time Status Pathology: Surgical [PTH] Routine Pth 07/07/22 09:03 Received Laboratory Results WBC 9.7 10^3/uL (4.0-10.0) 07/08/22 05:00 RBC 2.90 10^6/uL (4.1-5.3) L 07/08/22 05:00 Hgb 8.3 g/dL (11.5-15.3) L 07/08/22 05:00 Hct 26.2 % (37.0-47.0) L 07/08/22 05:00 MCV 90.3 fl (81-99) 07/08/22 05:00 MCH 28.6 pg (28.0-34.0) 07/08/22 05:00 MCHC 31.7 g/dL (30.0-36.0) 07/08/22 05:00 RDW 13.3 % (12.1-15.1) 07/08/22 05:00 Plt Count 245 10^3/cmm (130-400) 07/08/22 05:00 MPV 10.1 fL (7.4-10.4) 07/08/22 05:00 Neut % (Auto) 46.8 % 07/06/22 10:10 Lymph % (Auto) 36.8 % 07/06/22 10:10 [place] % (Auto) 7.1 % 07/06/22 10:10 Eos % (Auto) 7.9 % 07/06/22 10:10 Baso % (Auto) 1.2 % 07/06/22 10:10 Neut # (Auto) 2.71 10^3/uL (1.8-7.7) 07/06/22 10:10 Lymph # (Auto) 2.1 10^3/uL (0.8-4.8) 07/06/22 10:10 Dillon # (Auto) 0.4 10^3/uL (0.2-0.9) 07/06/22 10:10 Eos # (Auto) 0.5 10^3/uL (0.0-0.8) 07/06/22 10:10 Baso # (Auto) 0.1 10^3/uL (0.0-0.1) 07/06/22 10:10 Nucleated RBC % (auto) 0 % 07/06/22 10:10 Nucleated RBCs # 0.0 /100WBC 07/06/22 10:10 Sodium 135 mmol/L (136-145) L 07/06/22 10:10 Potassium 3.7 mmol/L (3.5-5.1) 07/06/22 10:10 Chloride 101 mmol/L (98-107) 07/06/22 10:10 Carbon Dioxide 26 mmol/L (22-29) 07/06/22 10:10 Anion Gap 11.7 (5-19) 07/06/22 10:10 BUN 19 mg/dL (6-20) 07/06/22 10:10 Creatinine 0.4 mg/dL (0.5-0.9) L 07/06/22 10:10 GFR Calculation 187.4 mL/min (90-130) H 07/06/22 10:10 Glucose 98 mg/dL (65-115) 07/06/22 10:10 Calculated Osmolality 282 mOsm/kg (285-295) L 07/06/22 10:10 Calcium 8.9 mg/dL (8.5-10.5) 07/06/22 10:10 Urine Color Yellow (Yellow) 07/07/22 08:30 Urine Appearance Clear (CLEAR) 07/07/22 08:30 Urine pH 8 (5-7) H 07/07/22 08:30 Ur Specific [place] 1.020 (1.005-1.030) 07/07/22 08:30 Urine Protein Neg (Negative) 07/07/22 08:30 Urine Glucose (UA) Norm (Normal) 07/07/22 08:30 Urine Ketones Negative (Negative) 07/07/22 08:30 Urine Blood Neg (Negative) 07/07/22 08:30 Urine Nitrate Negative (Negative) 07/07/22 08:30 Urine Bilirubin Neg (Negative) 07/07/22 08:30 Prot Sulfosalicylic Acd Negative (Negative) 07/07/22 08:30 Urine Urobilinogen Neg mg/dL (Negative) 07/07/22 08:30 Ur Leukocyte Esterase Negative (Negative) 07/07/22 08:30 Urine HCG, Qual Negative (Negative) 07/07/22 06:37 Blood Type A Positive 07/06/22 10:10 Rho(D) Type Positive 07/06/22 10:10 Antibody Screen Negative 07/06/22 10:10 Vitals Last Vital Signs Temp 98.6 F 07/08/22 07:15 Pulse 74 07/08/22 07:15 Resp 18 07/08/22 07:15 BP 103/63 07/08/22 07:15 Pulse Ox 97 07/08/22 07:15 O2 Del Method Room Air 07/08/22 07:15 Discharge Plan Discharge Patient Disposition: Home Condition: Stable Prescriptions: New docusate sodium 100 mg Capsule 100 mg PO BID Qty: 60 0RF ibuprofen 800 mg Tablet 800 mg PO Q8H Qty: 30 0RF hydrocodone-acetaminophen 5-325 mg Tablet 1 tab PO Q4H PRN (Reason: Moderate To Severe Pain) Qty: 30 0RF Continued meclizine 25 mg tablet 25 mg PO BID PRN (Reason: dizziness) Qty: 60 0RF albuterol sulfate [ProAir HFA] 90 mcg/actuation HFA aerosol inhaler 2 puff INHALATION Q4H PRN (Reason: Shortness Of Breath) Discharge Orders: Discharge Order (Routine); Ordered 07/08/22 Ordered By: Ximena Mccord Referrals: Ximena Mccord MD [Physician] - (07/13/22 AT 1115 08/19/22 AT 1:30 PM ) Patient Instructions: Depression, Hysterectomy (GEN), OB Discharge Report, OB Food/Drug Interaction Guide, Opioid Safety Discharge Attestations Time Spent in Discharge Care*: less than 30 min Quality Metrics Clinical Quality Measures [ No reported AMI, CVA or VTE this stay] Coding Level of Care Code Acute Code for Chg Fwd Diagnoses Abdominal pain R10.30 Abdominal location: lower abdomen, unspecified Menorrhagia N92.0 Uterine fibroid D25.9 Uterine leiomyoma location: unspecified location
[2022-07-08 11:05] VITALS: BP 93/59; PULSE 67; PULSE 82; RESP 18; TEMP 36.6; TEMP 36.9
[2022-07-08 11:20] VITALS: BP 93/59; PULSE 67; RESP 18; TEMP 36.6
== END 2022-07-08 11:20 | disposition home or self-care (01) | DRG 743 ==
LOC: OBGYN 07-08 08:56
PROVIDERS: Anesthesiology; Admitting Provider Obstetrics & Gynecology; PCP Family Medicine; Visit Provider Obstetrics & Gynecology
PROC: 0UT90ZZ Resection of Uterus, Open Approach (ICD-10-PCS; CPT 58150; principal; 2022-07-07 07:00)
DX: D25.9 Leiomyoma of uterus, unspecified (principal); N92.0 Excessive and frequent menstruation with regular cycle; N73.6 Female pelvic peritoneal adhesions (postinfective)
CPT/HCPCS: 36415; 51702; 80048; 81003; 81025; 84703; 85025; 85027; 86850; 86900; 87086; 88307; 96374; 96376; J0131; J0690; J1170; J1200; J1885; J2175; J2405; J2704; J3010; J3490; J7030; J7121

== ENCOUNTER → 2023-01-01 11:57 | Outpatient (BNVA) | payer BC, MEDICAID, SELFPAY | PROVIDERS: PCP Family Medicine; Visit Provider Family Medicine | DX: I95.9 Hypotension, unspecified (principal); Z51.81 Encounter for therapeutic drug level monitoring; R53.81 Other malaise; R53.83 Other fatigue | CPT/HCPCS: 80053; 82533; 84439; 84443; 85025 ==

== ENCOUNTER → 2023-01-25 10:35 | Outpatient (BNVA) | payer BC, MEDICAID, SELFPAY | PROVIDERS: PCP Family Medicine; Visit Provider Clinical Nurse Specialist Adult Health | DX: R11.2 Nausea with vomiting, unspecified (principal); R19.7 Diarrhea, unspecified | CPT/HCPCS: 80053; 87177; 87209; 87324; 87449 ==

== ENCOUNTER → 2023-09-07 13:22 | Outpatient (BNVA) | payer BC, MEDICAID, SELFPAY | PROVIDERS: PCP Family Medicine; Visit Provider Family Medicine | DX: O92.70 Unspecified disorders of lactation (principal) | CPT/HCPCS: 84146 ==

== ENCOUNTER 2023-11-15 20:19 | Emergency (ER) | payer BC, MEDICAID, SELFPAY ==
[2023-11-15 20:23] VITALS: BP 107/56; PULSE 61; RESP 14; TEMP 36.6; O2SAT 100
--- NOTE | 2023-11-15 20:40 | CTR_ITS ---
PROCEDURE INFORMATION: Exam: CT Abdomen And Pelvis Without Contrast Exam date and time: 11/15/2023 8:55 PM Age: 33 years old Clinical indication: Abdominal pain; Prior surgery; Surgery date: 6+ months; Surgery type: , hyst; Additional info: Left abd pain TECHNIQUE: Imaging protocol: Computed tomography of the abdomen and pelvis without contrast. Axial, coronal and sagittal reformatted images were created and reviewed. Radiation optimization: All CT scans at this facility use at least one of these dose optimization techniques: automated exposure control; mA and/or kV adjustment per patient size (includes targeted exams where dose is matched to clinical indication); or iterative reconstruction. COMPARISON: CT abdomen pelvis w con* [id number] 03/17/2018 12:10 PM RADIATION DOSE METRICS: Total DLP (mGy-cm): 302 FINDINGS: Liver: Unremarkable. Gallbladder and biliary ducts: No radiodense gallstones. No biliary ductal dilatation. Pancreas: Unremarkable. Spleen: Unremarkable. Adrenal glands: Normal. No mass. Kidneys and ureters: No mass. No radiodense calculi. No hydronephrosis. Stomach and bowel: Moderate amount of retained stool in the colon. No obstruction. No bowel wall thickening. No pneumatosis. Appendix: Normal. Intraperitoneal space: No free fluid. No organized fluid collection. No free air. Vasculature: Unremarkable. No aneurysm. Lymph nodes: No pathologically enlarged lymph nodes. Urinary bladder: Mild circumferential urinary bladder wall thickening, likely secondary to underdistention. Reproductive: Status post hysterectomy. Bones/joints: No acute osseous abnormality. Soft tissues: Unremarkable. CT/CT abdomen pelvis con [id number] IMPRESSION: 1. Limited noncontrast examination without CT evidence of acute intra-abdominal or pelvic pathology. 2. Additional findings, as above.
[2023-11-15 20:47] VITALS: RESP 20; O2SAT 100
[2023-11-15] MEDS: morphine 4 mg/mL SDV 1 mL IVP (20:47)
[2023-11-15] MEDS: ketorolac 30 mg/mL INJ 15 MG IVP (20:50)
[2023-11-15 20:52] LABS: Charge for UA Resulting for Rev
[2023-11-15] MEDS: ondansetron 2 mg/ML SDV 2 mL 4 MG IVP (20:52)
--- NOTE | 2023-11-15 20:53 | ED_ITS ---
HPI - Abdominal Pain 2 General: Chief Complaint: Abdominal Pain Stated Complaint: left abd pain Time Seen by Provider: 11/15/23 20:30 History of Present Illness: Sudden onset of left-sided abdominal pain. Pain left upper quadrant. No flank pain. No pelvic pain. Has had a hysterectomy in the past. No right sided abdominal pain. Has had nausea with the pain but no vomiting or diarrhea. No dysuria. Related Data Home Medications Medication Instructions Recorded Confirmed albuterol sulfate 90 mcg/actuation 2 puff inhalation Q4H PRN 04/07/20 11/09/23 aerosol inhaler (ProAir HFA) Shortness Of Breath Previous Rx's Medication Instructions Recorded midodrine 2.5 mg tablet 2.5 mg PO BID #60 tabs 01/01/23 quetiapine 25 mg tablet (Seroquel) 25 mg PO .QHS #30 tabs 03/09/23 lidocaine 5 % topical patch 1 patch topical DAILY #15 ea 08/11/23 citalopram 20 mg tablet 20 mg PO DAILY #30 tabs 09/07/23 ondansetron 4 mg disintegrating 4 mg PO Q6H PRN nausea and 10/07/23 tablet vomiting #30 tabs ciprofloxacin HCl 500 mg tablet 500 mg PO BID #14 tabs 11/15/23 hydrocodone 5 mg-acetaminophen 325 1 tab PO Q6H #20 tabs 11/15/23 mg tablet Allergies Allergy/AdvReac Type Severity Reaction Status Date / Time influenza virus vaccine, Allergy Unknown Verified 11/15/23 20:27 specific Sulfa (Sulfonamide Allergy ALGY-Hives Verified 11/15/23 20:27 Antibiotics) PFS ED 2 PFSH: Medical History Abdominal pain Menorrhagia Uterine fibroid Vertigo Menorrhagia Vaccination reaction Patient reports bad reaction to flu shot around 2016 requiring going to the hospital Post depression Generalized anxiety disorder Repeated concussion of brain Mild intermittent asthma Post-traumatic stress disorder, chronic Surgical History Status post tubal ligation 04/15/2021--bilateral total salpingectomy for sterilization performed at time of second by Dr. Holman at [facility]. Pathology showed-----> complete tubes with full [id number] malignancy History of delivery x 2 06/16/2016 - Low transverse section. Diagnosis: Cephalopelvic disproportion with contracted inlet. Performed by Dr. Roberto Kuo at [facility] in [place], [place]. Documented low transverse section with 2 layer closure of uterine incision. Right-sided inferior extension of the uterine incision. 04/15/2021--repeat low transverse delivery with tubal ligation by Dr. Holman at [facility] when patient presented in labor History of laparoscopy 02/18/2017: Hysteroscopy, dilation and curettage, diagnostic laparoscopy with lysis of adhesions on 02/18/2017 for chronic pelvic pain done by Dr Holman at [facility]. On hysteroscopy no abnormalities identified-curettage done-pathology pending. On laparoscopy filmy adhesions of the colon onto the left lower quadrant which was taken down. No other abnormalities noted. Uterus, tubes and ovaries appeared within normal limits. No signs of endometriosis. -Pathology on D&C showed polypoid endometrial mucosal fragments with weakly proliferative endometrium and scattered chronic inflammatory cells-mild chronic endometritis. History of tonsillectomy and adenoidectomy as an - Performed in [place] History of knee surgery 2013 - Right [place], [place] History of left knee surgery 2013 - [place] H/O myringotomy with tube placement - x2-as an : performed in [place] Family History Grandfather Cancer Liver cancer Family/Other Cancer Grandmother Hypertension Denies family history of Colon cancer Ovarian cancer Diabetes Heart disease Hypercholesteremia Breast cancer Uterine cancer Thyroid disease Stroke Social History Smoking and tobacco/nicotine status: current some day tobacco/nicotine user (vape) Substance/Drug Use: current Physical Exam 2 Const: COMMON NORMALS: no acute distress, average body habitus, patient oriented x3, no limitations, healthy appearing, alert and well nourished Neck/C-Spine: COMMON NORMALS: no JVD Resp: COMMON NORMALS: normal respiratory effort, No retractions, No use of accessory muscles, clear to auscultation bilaterally and percussion normal A USCULTATION: clear to auscultation bilaterally PERCUSSION: percussion normal Cardio: COMMON NORMALS: no JVD, regular rate, regular rhythm, S1 normal heart sound present, S2 normal heart sound present, No gallops present (Cardio), No clicks present (Cardio), No murmurs present (Cardio), No rub (Cardio) and Peripheral pulses 2+ throughout RATE: regular rate RHYTHM: regular rhythm HEART SOUNDS: S1 normal heart sound present and S2 normal heart sound present PERIPHERAL PULSES: Peripheral pulses 2+ throughout GI: COMMON NORMALS: Normal to inspection, nondistended, normoactive bowel sounds present, Soft to palpation, No hepatosplenomegaly present, no masses and no bruits; negative for non-tender (Left upper quadrant tenderness to palpation) P ALPATION: Yes Soft to palpation and Yes No hepatosplenomegaly present Neuro: COMMON NORMALS: patient oriented x3 SENSORIUM/ORIENTATION: Yes alert Course 2 Vital Signs: Vital signs: Vital Signs Temperature 97.8 F 11/15/23 20:23 Pulse Rate 62 11/15/23 21:10 Respiratory Rate 20 H 11/15/23 20:47 Blood Pressure 108/59 11/15/23 21:10 Pulse Oximetry 99 11/15/23 21:10 Oxygen Delivery Me thod Room Air 11/15/23 21:10 MDM - Abdominal Pain Medical Decision Making Sudden onset of left-sided abdominal pain. Pain left upper quadrant. No flank pain. No pelvic pain. Has had a hysterectomy in the past. No right sided abdominal pain. Has had nausea with the pain but no vomiting or diarrhea. No dysuria. Patient does have UTI which is concerning for pyelonephritis based upon patient's pain. Given IV Rocephin here and will discharge home with p.o. Cipro. Patient has no other acute abnormality noted on CT or labs. Patient does not appear to be septic. Lab Data 11/15/23 20:38 11/15/23 20:38 Labs/Radiology: Radiology Impressions Abdomen/Pelvis CT 11/15/23 20:40 IMPRESSION: 1. Limited noncontrast examination without CT evidence of acute intra-abdominal or pelvic pathology. 2. Additional findings, as above. Laboratory Results WBC 7.59 10^3/uL (3.29-11.43) 11/15/23 20:38 RBC 4.57 10^6/uL (3.85-5.65) 11/15/23 20:38 Hgb 13.20 g/dL (11.27-16.99) 11/15/23 20:38 Hct 41.2 % (36-47) 11/15/23 20:38 MCV 90.2 fl (85-98) 11/15/23 20:38 MCH 28.9 pg (27-33) 11/15/23 20:38 MCHC 32.0 g/dL (30-55) 11/15/23 20:38 RDW 13.8 % (12.1-15.1) 11/15/23 20:38 Plt Count 311 10^3/cmm (157-399) 11/15/23 20:38 MPV 10.4 fL (7.4-10.4) 11/15/23 20:38 Neut % (Auto) 52.7 % 11/15/23 20:38 Lymph % (Auto) 34.0 % 11/15/23 20:38 [place] % (Auto) 7.8 % 11/15/23 20:38 Eos % (Auto) 4.5 % 11/15/23 20:38 Baso % (Auto) 0.9 % 11/15/23 20:38 Neut # (Auto) 4.00 10^3/uL (1.8-7.7) 11/15/23 20:38 Lymph # (Auto) 2.6 10^3/uL (0.8-4.8) 11/15/23 20:38 [place] # (Auto) 0.6 10^3/uL (0.2-0.9) 11/15/23 20:38 Eos # (Auto) 0.3 10^3/uL (0.0-0.8) 11/15/23 20:38 Baso # (Auto) 0.1 10^3/uL (0.0-0.1) 11/15/23 20:38 Nucleated RBC % (auto) 0 % 11/15/23 20:38 Nucleated RBCs # 0.0 /100WBC 11/15/23 20:38 Sodium 139 mmol/L (136-145) 11/15/23 20:38 Potassium 3.9 mmol/L (3.5-5.1) 11/15/23 20:38 Chloride 103 mmol/L (98-107) 11/15/23 20:38 Carbon Dioxide 24 mmol/L (22-29) 11/15/23 20:38 Anion Gap 15.9 (5-19) 11/15/23 20:38 BUN 16 mg/dL (6-20) 11/15/23 20:38 Creatinine 0.6 mg/dL (0.5-0.9) 11/15/23 20:38 GFR Calculation 115.9 mL/min (90-130) 11/15/23 20:38 Glucose 99 mg/dL (65-115) 11/15/23 20:38 Calculated Osmolality 289 mOsm/kg (285-295) 11/15/23 20:38 Calcium 9.0 mg/dL (8.5-10.5) 11/15/23 20:38 Total Bilirubin 0.4 mg/dL (0.15-1.2) 11/15/23 20:38 AST 21 U/L (0-32) 11/15/23 20:38 ALT 22 U/L (0-33) 11/15/23 20:38 Alkaline Phosphatase 86 U/L (35-105) 11/15/23 20:38 Total Protein 7.7 g/dL (6.6-8.7) 11/15/23 20:38 Albumin 4.8 g/dL (3.5-5.2) 11/15/23 20:38 Globulin 2.9 g/dL (1.3-4.6) 11/15/23 20:38 Lipase 65 U/L (13-60) H 11/15/23 20:38 Urine Color Yellow (Yellow) 11/15/23 20:38 Urine Appearance Clear (CLEAR) 11/15/23 20:38 Urine pH 5.5 (5-7) 11/15/23 20:38 Ur Specific [place] 1.032 (1.005-1.030) H 11/15/23 20:38 Urine Protein Trace (Negative) A 11/15/23 20:38 Urine Glucose (UA) Negative (Normal) 11/15/23 20:38 Urine Ketones Negative (Negative) 11/15/23 20:38 Urine Blood Negative (Negative) 11/15/23 20:38 Urine Nitrate Positive (Negative) A 11/15/23 20:38 Urine Bilirubin Negative (Negative) 11/15/23 20:38 Urine Urobilinogen 1.0 mg/dL (Negative) 11/15/23 20:38 Ur Leukocyte Esterase Trace (Negative) A 11/15/23 20:38 Urine RBC 0-2 /hpf (0-2) 11/15/23 20:38 Urine WBC 51-100 /hpf (0-5) H 11/15/23 20:38 Ur Squamous Epith Cells 0-5 /hpf (0-5) 11/15/23 20:38 Amorphous Sediment Not Reportable 11/15/23 20:38 Urine Bacteria 3+ /hpf (NONE) H 11/15/23 20:38 Hyaline Casts 8.67 /lpf 11/15/23 20:38 All radiology interpretation(s) finalized by discharge Discharge Plan Discharge Patient Disposition: Home Clinical Impression: Pyelonephritis Condition: Stable Prescriptions: New hydrocodone-acetaminophen 5-325 mg tablet 1 tab PO Q6H Qty: 20 0RF ciprofloxacin HCl 500 mg tablet 500 mg PO BID Qty: 14 0RF No Action quetiapine [Seroquel] 25 mg tablet 25 mg PO .QHS Qty: 30 1RF lidocaine 5 % adhesive patch,medicated 1 patch topical DAILY Qty: 15 0RF Rx Instructions: leave on most painful area for up to 12 hrs ondansetron 4 mg tablet,disintegrating 4 mg PO Q6H PRN (Reason: nausea and vomiting) Qty: 30 0RF midodrine 2.5 mg tablet 2.5 mg PO BID Qty: 60 6RF Rx Instructions: do not give last dose of day after 6PM or within 4 hrs of bedtime citalopram 20 mg tablet 20 mg PO DAILY Qty: 30 3RF albuterol sulfate [ProAir HFA] 90 mcg/actuation HFA aerosol inhaler 2 puff INHALATION Q4H PRN (Reason: Shortness Of Breath) Discharge Orders: Discharge ED (Routine); Ordered 11/15/23 Ordered By: Deyvi Kaufman Referrals: Ilya Almanza MD [Primary Care Provider] - Patient Instructions: Opioid Safety, Pain Management Coding Level of Care Code ED [employer] for Cecilia Pierre
[2023-11-15 20:56] LABS: Bilirubin Urine Negative (Negative); Blood Urine Negative (Negative); Glucose Urine UA Negative (Normal); Ketones Urine Negative (Negative); Leukocyte Esterase Urine Trace (Negative); Nitrate Urine Positive (Negative); Protein Urine Trace (Negative); Urine Appearance Clear (CLEAR); Urine Color Yellow (Yellow); pH Urine 5.5 (5-7)
[2023-11-15 20:58] LABS: Alanine Aminotransferase 22 U/L (0-33); Albumin Level 4.8 g/dL (3.5-5.2); Alkaline Phosphatase 86 U/L (35-105); Anion Gap 15.9 (5-19); Aspartate Amino Transferase 21 U/L (0-32); Blood Urea Nitrogen 16 mg/dL (6-20); Carbon Dioxide 24 mmol/L (22-29); Chloride 103 mmol/L (98-107); Creatinine Clr Calc Pharmacy 110.2255; Globulin 2.9 g/dL (1.3-4.6); Glomerular Filtration Rate 115.9 mL/min (90-130); Glucose 99 mg/dL (65-115); Lipase 65 U/L (13-60); Osmolality Calculated 289 mOsm/kg (285-295); Potassium 3.9 mmol/L (3.5-5.1); Sodium 139 mmol/L (136-145); Total Bilirubin 0.4 mg/dL (0.15-1.2); Total Protein 7.7 g/dL (6.6-8.7)
[2023-11-15 21:01] LABS: Bacteria Urine 3+ /hpf; Hyaline Casts Urine 8.67 /lpf; RBC Urine 0-2 /hpf (0-2); Squamous Epithelial Cell Urine 0-5 /hpf (0-5); WBC Urine 51-100 /hpf (0-5)
[2023-11-15] MEDS: sodium chloride 0.9% 1,000 ML 999 ML IV (21:08)
[2023-11-15 21:10] VITALS: BP 108/59; PULSE 62; O2SAT 99
[2023-11-15 21:14] LABS: Specific Gravity, Urine 1.032 (1.005-1.030); UA Slide Review UA Slide Review Perf
[2023-11-15 21:15] LABS: Add Urine Culture? Yes
[2023-11-15 21:22] LABS: Basophils # 0.1 10^3/uL (0.0-0.1); Basophils % 0.9 %; Eosinophils # 0.3 10^3/uL (0.0-0.8); Eosinophils % 4.5 %; Hematocrit 41.2 % (36-47); Lymphocytes # 2.6 10^3/uL (0.8-4.8); Mean Corpuscular Hemoglobin 28.9 pg (27-33); Mean Corpuscular Volume 90.2 fl (85-98); Mean Platelet Volume 10.4 fL (7.4-10.4); Monocytes # 0.6 10^3/uL (0.2-0.9); Monocytes % 7.8 %; Neutrophils % 52.7 %; Nucleated Red Blood Cells % 0 %; Platelet Count 311 10^3/cmm (157-399); Red Blood Count 4.57 10^6/uL (3.85-5.65); Red Cell Distribution Width 13.8 % (12.1-15.1); White Blood Count 7.59 10^3/uL (3.29-11.43)
[2023-11-15] MEDS: cefTRIAXone 1,000 mg SDV 1000 MG IVP (21:54)
[2023-11-15 21:56] VITALS: BP 96/53; PULSE 62; O2SAT 100
[2023-11-15 22:05] VITALS: BP 102/65; PULSE 68; O2SAT 100
== END 2023-11-15 22:07 | disposition home or self-care (01) ==
PROVIDERS: Emergency Provider Emergency Medicine; PCP Family Medicine
DX: N12 Tubulo-interstitial nephritis, not specified as acute or chronic (principal); F17.290 Nicotine dependence, other tobacco product, uncomplicated
CPT/HCPCS: 74176; 80053; 81003; 81015; 83690; 85025; 87086; 96361; 96374; 96375; 99285; J0696; J1885; J2270; J2405; J7030

== ENCOUNTER → 2023-12-06 10:09 | Outpatient (BNVA) | payer BC, MEDICAID, SELFPAY | PROVIDERS: PCP Family Medicine; Visit Provider Clinical Nurse Specialist Adult Health | DX: R30.0 Dysuria (principal); N12 Tubulo-interstitial nephritis, not specified as acute or chronic | CPT/HCPCS: 81000; 87086 ==

== ENCOUNTER → 2023-12-22 10:36 | Outpatient (BNVA) | payer BC, MEDICAID, SELFPAY | PROVIDERS: PCP Family Medicine; Visit Provider Registered Nurse Neonatal Intensive Care | DX: J02.9 Acute pharyngitis, unspecified (principal) | CPT/HCPCS: 87880 ==

== ENCOUNTER 2024-01-12 07:15 | Emergency (ER) | payer BC, MEDICAID, SELFPAY ==
[2024-01-12 07:29] VITALS: BP 105/59; PULSE 91; RESP 16; TEMP 36.6; O2SAT 100; BMI 18.8
--- NOTE | 2024-01-12 07:29 | XR_ITS ---
WS: [id number] Exam: XR lumbar spine 2-3V* [id number] Date/Time of Exam: 01/12/2024 7:46 AM Reason For Exam: trauma Comparison 09/30/2010. No fracture or dislocation. Disc spaces are preserved. Posterior elements are intact. Slight levoscol iosis. XR/XR lumbar spine 2-3V* [id number] IMPRESSION: 1. Slight levoscoliosis otherwise negative lumbar spine study.
--- NOTE | 2024-01-12 07:29 | XR_ITS ---
WS: [id number] Exam: XR foot LT min 3V* [id number] Date/Time of Exam: 01/12/2024 7:46 AM Reason For Exam: pain Comparison 12/02/2021. No fracture or dislocation. Mild degenerative change of the midfoot joints. No soft tissue foreign hillary dies. XR/XR foot LT min 3V* [id number] IMPRESSION: 1. Minimal degenerative changes. No fracture.
--- NOTE | 2024-01-12 07:44 | W.ED.FALL ---
HPI - Fall General: Chief Complaint: Fall Stated Complaint: fell down staris, back, shoulder,hip,left footpain Time Seen by Provider: 01/12/24 07:29 History of Present Illness: 33-year-old female who presents to the emergency room with complaints of a fall. Patient fell down about 5 or 6 steps. She was taking her dog out this morning and suddenly fell. Unsure if she stumbled or slipped. She is complaining of bilateral hip pain left ankle and foot pain as well as bilateral shoulder pain mostly over the scapula. She did did not strike her head there is no loss consciousness she has some low back pain but no neck pain. Associated symptoms-after fall: Denies abdominal pain, chest pain or neck pain Related Data Previous Rx's Medication Instructions Recorded diclofenac sodium 75 mg 75 mg PO Q12H PRN pain #20 tabs 01/12/24 tablet,delayed release Allergies Allergy/AdvReac Type Severity Reaction Status Date / Time influenza virus vaccine, Allergy Unknown Verified 01/06/24 14:53 specific Sulfa (Sulfonamide Allergy ALGY-Hives Verified 01/06/24 14:53 Antibiotics) Review of Systems Const: Denies: fever(s) or chills Card: Denies: chest pain Resp: Denies: dyspnea GI: Denies: abdominal pain : Denies: dysuria, urinary frequency or urinary urgency Musc: Denies: neck pain or back pain Skin/Breast: Denies: rash PFSH ED PFSH: Medical History Abdominal pain Menorrhagia Uterine fibroid Vertigo Menorrhagia Vaccination reaction Patient reports bad reaction to flu shot around 2016 requiring going to the hospital Post depression Generalized anxiety disorder Repeated concussion of brain Mild intermittent asthma Post-traumatic stress disorder, chronic Surgical History History of total abdominal hysterectomy Status post tubal ligation 04/15/2021--bilateral total salpingectomy for sterilization performed at time of second by Dr. Holman [place] [facility] [place] Pathology showed-----> complete tubes with full [id number] malignancy History of delivery x 2 06/16/2016 - Low transverse section. Diagnosis: Cephalopelvic disproportion with contracted inlet. Performed by Dr. Roberto Kuo at [facility] in [place], [place]. Documented low transverse section with 2 layer closure of uterine incision. Right-sided inferior extension of the uterine incision. 04/15/2021--repeat low transverse delivery with tubal ligation by Dr. Holman at [facility] when patient presented in labor History of laparoscopy 02/18/2017: Hysteroscopy, dilation and curettage, diagnostic laparoscopy with lysis of adhesions on 02/18/2017 for chronic pelvic pain done by Dr Holman at [facility]. On hysteroscopy no abnormalities identified-curettage done-pathology pending. On laparoscopy filmy adhesions of the colon onto the left lower quadrant which was taken down. No other abnormalities noted. Uterus, tubes and ovaries appeared within normal limits. No signs of endometriosis. -Pathology on D&C showed polypoid endometrial mucosal fragments with weakly proliferative endometrium and scattered chronic inflammatory cells-mild chronic endometritis. History of tonsillectomy and adenoidectomy as an infant- Performed in [place] History of knee surgery 2013 - Right [place], [place] History of left knee surgery 2012 - [place] H/O myringotomy with tube placement - x2-as an : performed in [place] Family History Grandfather Cancer Liver cancer Family/Other Cancer Grandmother Hypertension Denies family history of Colon cancer Ovarian cancer Diabetes Heart disease Hypercholesteremia Breast cancer Uterine cancer Thyroid disease Stroke Social History Smoking and tobacco/nicotine status: never used tobacco/nicotine Alcohol intake: never Substance/Drug Use: never Current occupation: [employer] in [place] Physical Exam Const: COMMON NORMALS: no acute distress GENERAL APPEARANCE: cooperative and comfortable ORIENTATION/CONSCIOUSNESS: Yes awake, Yes oriented to person, Yes oriented to place and Yes oriented to time HENMT: COMMON NORMALS: normocephalic, atraumatic and hearing grossly normal bilaterally HEAD & SCALP: normocephalic and atraumatic Resp: COMMON NORMALS: normal respiratory effort, No retractions, No use of accessory muscles and clear to auscultation bilaterally AUSCULTATION: clear to auscultation bilaterally Cardio: COMMON NORMALS: regular rate, regular rhythm and No murmurs present (Cardio) RATE: regular rate RHYTHM: regular rhythm GI: COMMON NORMALS: Soft to palpation and No hepatosplenomegaly present AUSCULTATION: Yes normoactive bowel sounds PALPATION: Yes Soft to palpation, No Tenderness to palpation present (GI), No Guarding due to palpation present (GI) and Yes No hepatosplenomegaly present Extremity: COMMON NORMALS: normal to inspection, capillary refill normal, no clubbing, cyanosis or edema, no calf tenderness and no pedal edema Neuro: SENSORIUM/ORIENTATION: Yes oriented to person, Yes oriented to place and Yes oriented to time Skin: COMMON NORMALS: no rashes or lesions noted GENERAL SKIN EXAM: no rashes or lesions noted Course Vital Signs: Vital signs: Vital Signs Temperature 97.9 F 01/12/24 07:29 Pulse Rate 74 01/12/24 09:04 Respiratory Rate 16 01/12/24 07:29 Blood Pressure 100/64 01/12/24 09:04 Pulse Oximetry 98 01/12/24 09:04 Oxygen Delivery Me thod Room Air 01/12/24 07:29 MDM - Fall Medical Decision Making No acute findings on imaging. Will discharge home with diclofenac to use as needed. Discussed results with patient. Medical Records I reviewed the patient's medical records. Lab Data I reviewed the patient's lab results. Radiology Impressions Foot X-Ray 01/12/24 07:29 IMPRESSION: 1. Minimal degenerative changes. No fracture. Lumbar Spine X-Ray 01/12/24 07:29 IMPRESSION: 1. Slight levoscoliosis otherwise negative lumbar spine study. Cervical Spine X-Ray 01/12/24 07:45 IMPRESSION: 1. Normal C-spine study. Ankle X-Ray 01/12/24 07:46 IMPRESSION: 1. Negative LEFT ankle. Pelvis X-Ray 01/12/24 07:46 IMPRESSION: 1. Negative pelvis. Scapula X-Ray 01/12/24 07:46 IMPRESSION: 1. Negative RIGHT scapula. All radiology interpretation(s) finalized by discharge Discharge Plan Discharge Patient Disposition: Home Clinical Impression: Fall, Back pain Condition: Stable Prescriptions: New diclofenac sodium 75 mg tablet,delayed release (DR/EC) 75 mg PO Q12H PRN (Reason: pain) Qty: 20 0RF Discharge Orders: Discharge ED (Routine); Ordered 01/12/24 Ordered By: Dionicio Cooper Referrals: Ilya Almanza MD [Primary Care Provider] - Patient Instructions: Opioid Safety, Pain Management Activity Restrictions/Additional Instructions: Thank you for choosing [facility] for your healthcare needs today. It is very important that you follow up as instructed or that you return to the Emergency Department should you have concerns or if your condition changes or worsens in any way. You were seen after a fall. X-rays did not show any acute fractures. You will likely be quite sore for the next couple of days. You are given a prescription for diclofenac to use as needed. Coding Level of Care Code ED Open [employer] for Cecilia Pierre
--- NOTE | 2024-01-12 07:45 | XR_ITS ---
WS: [email or web address] Exam: XR cervical spine 3V* [id number] Date/Time of Exam: 01/12/2024 8:14 AM Reason For Exam: Trauma No fracture or dislocation. Posterior elements are intact. Disc spaces are preserved. Normal paraspin al soft tissues. The odontoid is intact. XR/XR cervical spine 3V* [id number] IMPRESSION: 1. Normal C-spine study.
--- NOTE | 2024-01-12 07:46 | XR_ITS ---
WS: [email or web address] Exam: XR ankle LT min 3V* [id number] Date/Time of Exam: 01/12/2024 8:14 AM Reason For Exam: Trauma No fracture or dislocation. The ankle mortise is preserved. Normal soft tissues. XR/XR ankle LT min 3V* [id number] IMPRESSION: 1. Negative LEFT ankle.
--- NOTE | 2024-01-12 07:46 | XR_ITS ---
WS: [email or web address] Exam: XR pelvis 1-2V* [id number] Date/Time of Exam: 01/12/2024 8:14 AM Reason For Exam: Trauma No pelvic fracture. 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 The hips are otherwise intact. Unremarkable soft tissues. XR/XR pelvis 1-2V* [id number] IMPRESSION: 1. Negative pelvis.
--- NOTE | 2024-01-12 07:46 | XR_ITS ---
WS: [email or web address] Exam: [place] [id number] Date/Time of Exam: 01/12/2024 8:14 AM Reason For Exam: Trauma Comparison 11/29/2021. No fracture or dislocation. Adjacent soft tissues appear normal. XR/[place] [id number] IMPRESSION: 1. Negative RIGHT scapula.
--- NOTE | 2024-01-12 07:46 | XR_ITS ---
WS: [email or web address] Exam: [place] [id number] Date/Time of Exam: 01/12/2024 8:14 AM Reason For Exam: Trauma No fracture or dislocation. Adjacent soft tissues are unremarkable. XR/[place] [id number] IMPRESSION: 1. Negative LEFT scapula.
[2024-01-12 09:01] VITALS: BP 105/59; PULSE 78; O2SAT 100
[2024-01-12 09:04] VITALS: BP 100/64; PULSE 74; O2SAT 98
== END 2024-01-12 09:05 | disposition home or self-care (01) ==
PROVIDERS: Emergency Provider Family Medicine; PCP Family Medicine
DX: M54.9 Dorsalgia, unspecified (principal); M25.552 Pain in left hip; M25.551 Pain in right hip; M25.512 Pain in left shoulder; M25.511 Pain in right shoulder; W10.9XXA Fall (on) (from) unspecified stairs and steps, initial encounter
CPT/HCPCS: 72040; 72100; 72170; 73010; 73610; 73630; 99284

== ENCOUNTER 2024-01-26 07:00 | Outpatient (CLI) | payer BC, MEDICAID, SELFPAY ==
--- NOTE | 2024-01-26 07:15 | MR_ITS ---
WS: [id number] MRI BRAIN WITHOUT AND WITH CONTRAST, ATTENTION DIRECTED TO THE PITUITARY GLAND HISTORY: Prolactin elevation - Pituitary protocol COMPARISON: None available. TECHNIQUE: Diffusion-weighted imaging, axial T2 sequence, and postcontrast images in 3 planes are per formed. High-resolution coronal and sagittal imaging performed through the pituitary region with and without intravenous gadolinium. Pituitary gland is normal size. There is no deviation of the infundibulum or optic chiasm. No asymmet ry of the pituitary gland. No mass or mass effect. No soft tissue encasing the carotid arteries in th e cavernous sinus. No nonenhancing mass is identified on the dynamic imaging. Normal diffusion imaging. No prior infarct. No small vessel disease or white matter disease. Ventricl es are normal size. No hemorrhage. No inferior displacement of the cerebellar tonsils. No enhancing m asses or vascular malformations. No paranasal sinus disease. Mastoid air cells are clear. Normal calvarium. MR/MR pituitary wo/w con* [id number] IMPRESSION: 1. Normal pituitary gland. No microadenoma or macroadenoma. 2. Normal MRI brain.
== END 2024-01-26 07:01 | disposition home or self-care (01) ==
PROVIDERS: PCP Family Medicine; Visit Provider Family Medicine
DX: R79.89 Other specified abnormal findings of blood chemistry (principal)
CPT/HCPCS: 70553; A9577

== ENCOUNTER → 2024-04-21 11:07 | Outpatient (BNVA) | payer BC, MEDICAID, SELFPAY | PROVIDERS: PCP Family Medicine; Visit Provider Registered Nurse Neonatal Intensive Care | DX: R31.9 Hematuria, unspecified (principal); N12 Tubulo-interstitial nephritis, not specified as acute or chronic | CPT/HCPCS: 81000 ==

== ENCOUNTER 2024-06-10 18:52 | Emergency (ER) | payer BC, MEDICAID, SELFPAY ==
[2024-06-10] VITALS (8 sets, daily range): BP systolic 100–152; BP diastolic 63–76; PULSE 66–86; RESP 13–27; TEMP 36.7; O2SAT 98–100; BMI 17.5
--- NOTE | 2024-06-10 18:59 | ECG_ITS ---
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 Measurements Intervals [place] Rate: 79 P: 70 [place]: 156 QRS: 85 QRSD: 76 T: 56 QT: 355 QTc: 408 Interpretive Statements SINUS RHYTHM LEFT ATRIAL ENLARGEMENT [-0.15mV P-WAVE IN V1/V2] Compared to ECG 04/22/2022 17:29:11 No significant changes Electronically Signed On 06-11-2024 22:42:34 CDT by Hunter Strickland M.D. [email or web address]
--- NOTE | 2024-06-10 19:24 | XRR_ITS ---
PROCEDURE INFORMATION: Exam: XR Chest Exam date and time: 06/10/2024 7:42 PM Age: 33 years old Clinical indication: Chest pressure; Chest pain with tachycardia; Additional info: Cp TECHNIQUE: Imaging protocol: Radiologic exam of the chest. Views: 1 view. COMPARISON: [place] [id number] 01/12/2024 8:26 AM FINDINGS: Lungs: Unremarkable. No consolidation. Pleural spaces: Unremarkable. No pleural effusion. No pneumothorax. Heart/Mediastinum: Unremarkable. No cardiomegaly. Bones/joints: Unremarkable. XR/XR chest 1V portable [id number] IMPRESSION: No acute findings.
[2024-06-10 19:29] LABS: Basophils # 0.1 10^3/uL (0.0-0.1); Eosinophils # 0.1 10^3/uL (0.0-0.8); Lymphocytes # 1.7 10^3/uL (0.8-4.8); Lymphocytes % 23.3 %; Mean Corpuscular HGB Conc 32.5 g/dL (30-55); Mean Corpuscular Hemoglobin 29.1 pg (27-33); Mean Corpuscular Volume 89.5 fl (85-98); Mean Platelet Volume 10.6 fL (7.4-10.4); Monocytes # 0.6 10^3/uL (0.2-0.9); Monocytes % 7.7 %; Neutrophils # 4.84 10^3/uL (1.8-7.7); Neutrophils % 66.9 %; Nucleated Red Blood Cells % 0 %; Platelet Count 265 10^3/cmm (157-399); Red Blood Count 4.47 10^6/uL (3.85-5.65); Red Cell Distribution Width 13.9 % (12.1-15.1); White Blood Count 7.24 10^3/uL (3.29-11.43)
[2024-06-10 19:43] LABS: Alanine Aminotransferase 11 U/L (0-33); Albumin Level 5.1 g/dL (3.5-5.2); Alkaline Phosphatase 72 U/L (35-105); Anion Gap 17.5 (5-19); Aspartate Amino Transferase 16 U/L (0-32); Blood Urea Nitrogen 5 mg/dL (6-20); Calcium 9.5 mg/dL (8.5-10.5); Carbon Dioxide 22 mmol/L (22-29); Chloride 102 mmol/L (98-107); Creatinine Clr Calc Pharmacy 130.8823; Globulin 2.5 g/dL (1.3-4.6); Glucose 92 mg/dL (65-115); Osmolality Calculated 283 mOsm/kg (285-295); Potassium 3.5 mmol/L (3.5-5.1); Sodium 138 mmol/L (136-145); Total Bilirubin 0.6 mg/dL (0.15-1.2); Total Protein 7.6 g/dL (6.6-8.7)
[2024-06-10 19:46] LABS: Troponin(5th) Baseline < 6 ng/L (0-10)
[2024-06-10 19:54] LABS: NT Pro B Type Natriuretic Pept < 36 pg/mL (0-125)
[2024-06-10 19:59] LABS: D Dimer 0.98 ug/mLFEU (0-0.59)
--- NOTE | 2024-06-10 20:05 | CTR_ITS ---
PROCEDURE INFORMATION: Exam: CTA Chest With Contrast Exam date and time: 06/10/2024 8:16 PM Age: 33 years old Clinical indication: Pain and abnormal findings; Abnormal diagnostic tests; Elevated d-dimer; Chest pressure; C/O chest pain with tachycardia. Dimer 0.98. TECHNIQUE: Imaging protocol: Computed tomographic angiography of the chest with contrast. Exam focused on the arteries. 3D rendering (Not supervised by radiologist): MIP and/or 3D reconstructed images were created by the technologist. Radiation optimization: All CT scans at this facility use at least one of these dose optimization techniques: automated exposure control; mA and/or kV adjustment per patient size (includes targeted exams where dose is matched to clinical indication); or iterative reconstruction. Contrast material: OMNI 350; Contrast volume: 50 ml; Contrast route: INTRAVENOUS (IV); COMPARISON: CR (CHEST, ) 06/10/2024 7:42 PM RADIATION DOSE METRICS: Total DLP (mGy-cm): 135.94 FINDINGS: Pulmonary arteries: No pulmonary emboli. Aorta: Unremarkable. No aortic aneurysm. No aortic dissection. Lungs: No focal consolidations. Pleural spaces: Unremarkable. No pneumothorax. No pleural effusion. Heart: Unremarkable. No cardiomegaly. No pericardial effusion. Lymph nodes: Unremarkable. No enlarged lymph nodes. Bones/joints: Unremarkable. No acute fracture. Soft tissues: Unremarkable. CT/CT angio chest PE protcl [id number] IMPRESSION: 1. No pulmonary emboli. 2. No focal consolidations.
[2024-06-10] MEDS: iohexol 350 mg/mL 500 mL Btl (per mL) IV (20:19)
--- NOTE | 2024-06-10 20:37 | ED_ITS ---
HPI - Chest Pain 2 General: Chief Complaint: Chest Pain Stated Complaint: pulse high cp,cant keep anything down Time Seen by Provider: 06/10/24 19:06 History of Present Illness: 33-year-old female patient presenting wi th sharp chest pain in the center of her chest and her back. This started while lying down watching TV. She has not been coughing. She felt well earlier in the day. Her heart rate was elevated at home. She is mildly short of breath. She has not been coughing. No fever. Related Data Previous Rx's ?Medication ?Instructions ?Recorded ciprofloxacin HCl 500 mg tablet 500 mg PO BID 7 days # 14 tabs 04/21/24 ketorolac 10 mg tablet 10 mg PO TID PRN pain #10 ta bs 06/10/24 Allergies Allergy/AdvReac Type Severity Reaction Status Date / Time influenza virus vaccine, Allergy Unknown Verified 04/21/24 11:03 specific Sulfa (Sulfonamide Allergy ALGY-Hives Verified 04/21/24 11:03 Antibiotics) PFSH ED 2 PFSH: Medical History Abdominal pain Menorrhagia Uterine fibroid Vertigo Menorrhagia Vaccination reaction Patient reports bad reaction to flu shot around 2016 requiring going to the hospital Post depression Generalized anxiety disorder Repeated concussion of brain Mild intermittent asthma Post-traumatic stress disorder, chronic Surgical History History of total abdominal hysterectomy Status post tubal ligation 04/15/2021--bilateral total salpingectomy for sterilization performed at time of second by Dr. Holman [place] [facility] Pathology showed-----> complete tubes with full [id number] malignancy History of delivery x 2 06/16/2016 - Low transverse section. Diagnosis: Cephalopelvic disproportion with contracted inlet. Performed by Dr. Roberto Kuo at [facility] in [place], [place]. Documented low transverse section with 2 layer closure of uterine incision. Right-sided inferior extension of the uterine incision. 04/15/2021--repeat low transverse delivery with tubal ligation by Dr. Holman at [facility] when patient presented in labor History of laparoscopy 02/18/2017: Hysteroscopy, dilation and curettage, diagnostic laparoscopy with lysis of adhesions on 02/18/2017 for chronic pelvic pain done by Dr Holman at [facility]. On hysteroscopy no abnormalities identified-curettage done-pathology pending. On laparoscopy filmy adhesions of the colon onto the left lower quadrant which was taken down. No other abnormalities noted. Uterus, tubes and ovaries appeared within normal limits. No signs of endometriosis. -Pathology on D&C showed polypoid endometrial mucosal fragments with weakly proliferative endometrium and scattered chronic inflammatory cells-mild chronic endometritis. History of tonsillectomy and adenoidectomy as an infant- Performed in [place] History of knee surgery 2013 - Right [place], [place] History of left knee surgery 2013 - [place] H/O myringotomy with tube placement - x2-as an : performed in [place] Family History Grandfather Cancer Liver cancer Family/Other Cancer Grandmother Hypertension Denies family history of Colon cancer Ovarian cancer Diabetes Heart disease Hypercholesteremia Breast cancer Uterine cancer Thyroid disease Stroke Social History Smoking and tobacco/nicotine status: never used tobacco/nicotine Alcohol intake: never Substance/Drug Use: never Current occupation: [employer] in [place] Physical Exam 2 Const: COMMON NORMALS: no acute distress GENERAL APPEARANCE: cooperative; not ill appearing and not frail appearing HENMT: COMMON NORMALS: normocephalic, atraumatic and Normal external nose present HEAD & SCALP: normocephalic and atraumatic FACE & SINUS: normal facial exam and face symmetric NOSE: Normal external nose present Eye: COMMON NORMALS: Equal, round and reactive pupils present and EOMs intact bilaterally PUPIL: Yes Equal, round and reactive pupils present Neck/C-Spine: GENERAL: Yes trachea midline Chest: CHEST: Yes Symmetrical chest wall rise OTHER: Tenderness to palpation central chest, and upper back. Resp: COMMON NORMALS: normal respiratory effort, No retractions, No use of accessory muscles and clear to auscultation bilaterally AUSCULTATION: clear to auscultation bilaterally Cardio: COMMON NORMALS: regular rate and regular rhythm RATE: regular rate RHYTHM: regular rhythm GI: COMMON NORMALS: Normal to inspection, nondistended, normoactive bowel sounds present Extremity: COMMON NORMALS: no pedal edema Neuro: ESTER COMA SCALE: document GCS findings Ester coma scale eye opening: Spontaneous [place] coma scale verbal response: Orientated [place] coma scale motor response: Obey commands [place] coma scale total score: 15 S ENSORY EXAM: Yes extremities (intact) Psych: COMMON NORMALS: speech normal SPEECH: Yes normal speech Skin: COMMON NORMALS: no rashes or lesions noted GENERAL SKIN EXAM: no rashes or lesions noted Course 2 Vital Signs: Vital signs: Vital Signs Temperature 98.0 F 06/10/24 18:54 Pulse Rate 68 06/10/24 23:14 Respiratory Rate 25 H 06/10/24 22:00 Blood Pressure 134/68 06/10/24 23:14 Pulse Oximetry 98 06/10/24 23:14 Oxygen Delivery Me thod Room Air 06/10/24 18:54 MDM - Chest Pain Medical Decision Making Chest x-ray is clear. Vitals are stable here. CBC is normal. BMP is not remarkable. Troponin is less than 6, BNP is less than 36. D-dimer is elevated at 0.98. CTA is pending. CTA is negative. Likely chest wall inflammation. Will be treated as such. To return for new or worsening symptoms despite treatment. Outpatient follow-up. Lab Data 06/10/24 19:10 06/10/24 19:10 Radiology Impressions Chest X-Ray 06/10/24 19:24 IMPRESSION: No acute findings. Chest CTA 06/10/24 20:05 IMPRESSION: 1. No pulmonary emboli. 2. No focal consolidations. Laboratory Results WBC 7.24 10^3/uL (3.29-11.43) 06/10/24 19:10 RBC 4.47 10^6/uL (3.85-5.65) 06/10/24 19:10 Hgb 13.00 g/dL (11.27-16.99) 06/10/24 19:10 Hct 40.0 % (36-47) 06/10/24 19:10 MCV 89.5 fl (85-98) 06/10/24 19:10 MCH 29.1 pg (27-33) 06/10/24 19:10 MCHC 32.5 g/dL (30-55) 06/10/24 19:10 RDW 13.9 % (12.1-15.1) 06/10/24 19:10 Plt Count 265 10^3/cmm (157-399) 06/10/24 19:10 MPV 10.6 fL (7.4-10.4) H 06/10/24 19:10 Neut % (Auto) 66.9 % 06/10/24 19:10 Lymph % (Auto) 23.3 % 06/10/24 19:10 [place] % (Auto) 7.7 % 06/10/24 19:10 Eos % (Auto) 1.0 % 06/10/24 19:10 Baso % (Auto) 1.0 % 06/10/24 19:10 Neut # (Auto) 4.84 10^3/uL (1.8-7.7) 06/10/24 19:10 Lymph # (Auto) 1.7 10^3/uL (0.8-4.8) 06/10/24 19:10 [place] # (Auto) 0.6 10^3/uL (0.2-0.9) 06/10/24 19:10 Eos # (Auto) 0.1 10^3/uL (0.0-0.8) 06/10/24 19:10 Baso # (Auto) 0.1 10^3/uL (0.0-0.1) 06/10/24 19:10 Nucleated RBC % (auto) 0 % 06/10/24 19:10 Nucleated RBCs # 0.0 /100WBC 06/10/24 19:10 D-Dimer 0.98 ug/mLFEU (0-0.59) H 06/10/24 19:10 Sodium 138 mmol/L (136-145) 06/10/24 19:10 Potassium 3.5 mmol/L (3.5-5.1) 06/10/24 19:10 Chloride 102 mmol/L (98-107) 06/10/24 19:10 Carbon Dioxide 22 mmol/L (22-29) 06/10/24 19:10 Anion Gap 17.5 (5-19) 06/10/24 19:10 BUN 5 mg/dL (6-20) L 06/10/24 19:10 Creatinine 0.5 mg/dL (0.5-0.9) 06/10/24 19:10 GFR Calculation 143.0 mL/min (90-130) H 06/10/24 19:10 Glucose 92 mg/dL (65-115) 06/10/24 19:10 Calculated Osmolality 283 mOsm/kg (285-295) L 06/10/24 19:10 Calcium 9.5 mg/dL (8.5-10.5) 06/10/24 19:10 Total Bilirubin 0.6 mg/dL (0.15-1.2) 06/10/24 19:10 AST 16 U/L (0-32) 06/10/24 19:10 ALT 11 U/L (0-33) 06/10/24 19:10 Alkaline Phosphatase 72 U/L (35-105) 06/10/24 19:10 Troponin T Baseline < 6 ng/L (0-10) 06/10/24 19:10 Troponin T 120 Minute 6.00 ng/L (0-10) 06/10/24 20:58 Delta Troponin T 0.00735 ABS# (0-10) 06/10/24 20:58 NT-Pro-B Natriuret Pep < 36 pg/mL (0-125) 06/10/24 19:10 Total Protein 7.6 g/dL (6.6-8.7) 06/10/24 19:10 Albumin 5.1 g/dL (3.5-5.2) 06/10/24 19:10 Globulin 2.5 g/dL (1.3-4.6) 06/10/24 19:10 All radiology interpretation(s) finalized by discharge Discharge Plan Discharge Patient Disposition: Home Clinical Impression: Atypical chest pain Condition: Stable Prescriptions: New ketorolac 10 mg tablet 10 mg PO TID PRN (Reason: pain) Qty: 10 0RF No Action ciprofloxacin HCl 500 mg tablet 500 mg PO BID 7 Days Qty: 14 0RF Discharge Orders: Discharge ED (Routine); Ordered 06/10/24 Ordered By: Sony Sanford Referrals: Ilya Almanza MD [Primary Care Provider] - Patient Instructions: Chest Wall Pain (ED), Opioid Safety, Pain Management Activity Restrictions/Additional Instructions: Return for fever, worsening shortness of breath, other concerning symptoms. Call your doctor on Wednesday for a follow-up appointment. Medication as needed for pain. Stand Alone Forms: Work/School Release Print Language: Nepali Coding Level of Care Code ED Electronic Technologist for Chg Fwd
[2024-06-10 21:24] LABS: Troponin 5 2HR Delta 0.00001 ABS# (0-10)
[2024-06-10] MEDS: ondansetron 2 mg/ML SDV 2 mL 4 MG IVP (21:44)
[2024-06-10] MEDS: ketorolac 30 mg/mL INJ IVP (21:44)
--- NOTE | 2024-06-10 22:30 | ECG_ITS ---
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 Measurements Intervals [place] Rate: 57 P: 64 [place]: 160 QRS: 78 QRSD: 74 T: 51 QT: 404 QTc: 396 Interpretive Statements SINUS BRADYCARDIA POSSIBLE LEFT ATRIAL ENLARGEMENT [-0.1mV P-WAVE IN V1/V2] Compared to ECG 06/10/2024 19:01:15 Sinus rhythm no longer present Electronically Signed On 06-11-2024 22:49:46 CDT by Hunter Strickland M.D. [id number] [id number]
== END 2024-06-10 23:16 | disposition home or self-care (01) ==
PROVIDERS: Emergency Provider Emergency Medicine; PCP Family Medicine
DX: R07.89 Other chest pain (principal)
CPT/HCPCS: 36415; 71045; 71275; 80053; 83880; 84484; 85025; 85378; 93005; 96374; 96375; 99285; J1885; J2405

== ENCOUNTER 2024-06-26 20:31 | Emergency (ER) | payer BC, MEDICAID, SELFPAY ==
[2024-06-26 20:37] VITALS: BP 101/66; PULSE 108; RESP 14; TEMP 36; O2SAT 95
--- NOTE | 2024-06-26 20:46 | ECG_ITS ---
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
[2024-06-26 21:09] LABS: Basophils # 0.1 10^3/uL (0.0-0.1); Eosinophils # 0.3 10^3/uL (0.0-0.8); Eosinophils % 3.5 %; Hematocrit 37.5 % (36-47); Lymphocytes # 1.6 10^3/uL (0.8-4.8); Lymphocytes % 21.8 %; Mean Corpuscular HGB Conc 32.5 g/dL (30-55); Mean Corpuscular Hemoglobin 29.3 pg (27-33); Mean Corpuscular Volume 90.1 fl (85-98); Monocytes # 0.6 10^3/uL (0.2-0.9); Monocytes % 7.8 %; Neutrophils # 4.69 10^3/uL (1.8-7.7); Neutrophils % 65.8 %; Nucleated Red Blood Cells % 0 %; Platelet Count 289 10^3/cmm (157-399); Red Blood Count 4.16 10^6/uL (3.85-5.65); Red Cell Distribution Width 13.7 % (12.1-15.1); White Blood Count 7.14 10^3/uL (3.29-11.43)
[2024-06-26 21:14] LABS: HCG, Serum Qual Negative (Negative)
[2024-06-26 21:19] LABS: Alanine Aminotransferase 12 U/L (0-33); Albumin Level 4.6 g/dL (3.5-5.2); Alkaline Phosphatase 81 U/L (35-105); Aspartate Amino Transferase 16 U/L (0-32); Blood Urea Nitrogen 10 mg/dL (6-20); Calcium 9.1 mg/dL (8.5-10.5); Carbon Dioxide 23 mmol/L (22-29); Chloride 104 mmol/L (98-107); Creatinine Clr Calc Pharmacy 109.0686; Glomerular Filtration Rate 115.9 mL/min (90-130); Glucose 96 mg/dL (65-115); Osmolality Calculated 285 mOsm/kg (285-295); Sodium 138 mmol/L (136-145); Total Bilirubin 0.4 mg/dL (0.15-1.2); Total Protein 7.6 g/dL (6.6-8.7)
[2024-06-26 23:00] VITALS: BP 102/62; PULSE 53; O2SAT 100
--- NOTE | 2024-06-26 23:15 | ECG_ITS ---
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 Measurements Intervals [place] Rate: 56 P: 76 [place]: 166 QRS: 85 QRSD: 86 T: 70 QT: 401 QTc: 388 Interpretive Statements SINUS BRADYCARDIA WITH SINUS ARRHYTHMIA Compared to ECG 06/10/2024 22:30:32 No significant changes Electronically Signed On 06-27-2024 18:52:08 CDT by Hunter Strickland M.D. [id number]
[2024-06-26 23:30] VITALS: BP 94/57; PULSE 52; O2SAT 100
[2024-06-27 00:07] VITALS: BP 111/96; PULSE 63; O2SAT 91
--- NOTE | 2024-06-27 00:52 | ED_ITS ---
HPI - Syncope 2 General: Chief Complaint: Syncope Stated Complaint: Near Syncope Time Seen by Provider: 06/26/24 23:34 Source: patient Mode of arrival: ambulatory Limitations: no limitations History of Present Illness: Patient is a 33-year-old female presents after episode of dizziness today while driving. Patient states she felt herself get dizzy and vision go black and she pulled this out of the road. Notes that she recently started citalopram for weight gain. Was seen here couple weeks ago had full cardiac workup including CTA for PE, all of this was normal. 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 No chest pain, shortness of breath, vomiting, or other symptoms noted with the incident today. MD complaint: felt faint and almost passed out Onset (ago): hour(s) -: second(s) Prodromal symptoms: none Witnessed: No Context: new medication Injuries sustained associated with event: none Associated symptoms: Deny abdominal pain, chest pain, fever(s), headache(s), lightheadedness or nausea Related Data Previous Rx's ?Medication ?Instructions ?Recorded ketorolac 10 mg tablet 10 mg PO TID PRN pain #10 ta bs 06/10/24 citalopram 10 mg tablet 10 mg PO DAILY #30 tabs 04/15 Allergies Allergy/AdvReac Type Severity Reaction Status Date / Time influenza virus vaccine, Allergy Unknown Verified 06/26/24 20:42 specific Sulfa (Sulfonamide Allergy ALGY-Hives Verified 06/26/24 20:42 Antibiotics) Review of Systems 2 General: Reports: 10 or more systems reviewed and unremarkable except in HPI and below Const: Denies: fever(s), chills or fatigue Eyes: Denies: change in vision ENMT: Denies: throat pain, ear or mastoid pain or nasal discharge Card: Reports: pre-syncope; Denies: chest pain, palpitations, swelling of feet/ankles or lightheadedness Resp: Denies: dyspnea, productive cough or wheezing GI: Denies: abdominal pain, nausea, vomiting, diarrhea or constipation : Denies: flank pain, difficulty voiding, dysuria or urinary frequency Musc: Denies: neck pain, back pain or joint pain Skin/Breast: Denies: rash Neuro: Reports: dizziness; Denies: headache(s), numbness in extremities, weakness in extremities, Slurred speech present or seizure-like activity PFSH ED 2 PFSH: Medical History Abdominal pain Menorrhagia Uterine fibroid Vertigo Menorrhagia Vaccination reaction Patient reports bad reaction to flu shot around 2017 requiring going to the hospital Post depression Generalized anxiety disorder Repeated concussion of brain Mild intermittent asthma Post-traumatic stress disorder, chronic Surgical History History of total abdominal hysterectomy Status post tubal ligation 04/15/2021--bilateral total salpingectomy for sterilization performed at time of second by Dr. Holman [place] [facility] Pathology showed-----> complete tubes with full [id number] malignancy History of delivery x 2 06/16/2016 - Low transverse section. Diagnosis: Cephalopelvic disproportion with contracted inlet. Performed by Dr. Roberto Kuo at [facility] in [place], [place]. Documented low transverse section with 2 layer closure of uterine incision. Right-sided inferior extension of the uterine incision. 04/15/2021--repeat low transverse delivery with tubal ligation by Dr. Holman [place] [facility] when patient presented in labor History of laparoscopy 02/18/2017: Hysteroscopy, dilation and curettage, diagnostic laparoscopy with lysis of adhesions on 02/18/2017 for chronic pelvic pain done by Dr Holman at [facility]. On hysteroscopy no abnormalities identified-curettage done-pathology pending. On laparoscopy filmy adhesions of the colon onto the left lower quadrant which was taken down. No other abnormalities noted. Uterus, tubes and ovaries appeared within normal limits. No signs of endometriosis. -Pathology on D&C showed polypoid endometrial mucosal fragments with weakly proliferative endometrium and scattered chronic inflammatory cells-mild chronic endometritis. History of tonsillectomy and adenoidectomy as an - Performed in [place] History of knee surgery 2013 - Right [place], [place] History of left knee surgery 2012 - [place], [place] H/O myringotomy with tube placement - x2-as an : performed in [place] Family History Grandfather Cancer Liver cancer Family/Other Cancer Grandmother Hypertension Denies family history of Colon cancer Ovarian cancer Diabetes Heart disease Hypercholesteremia Breast cancer Uterine cancer Thyroid disease Stroke Social History Smoking and tobacco/nicotine status: never used tobacco/nicotine Alcohol intake: never Substance/Drug Use: never Additional social history: In [place] currently Current occupation: [employer] in [employer] Physical Exam 2 Const: COMMON NORMALS: no acute distress, patient oriented x3 and no limitations GENERAL APPEARANCE: cooperative, comfortable and well developed ORIENTATION/CONSCIOUSNESS: Yes awake, Yes oriented to person, Yes oriented to place and Yes oriented to time HENMT: COMMON NORMALS: normocephalic, atraumatic and hearing grossly normal bilaterally HEAD & SCALP: normocephalic and atraumatic Eye: COMMON NORMALS: Equal, round and reactive pupils present, EOMs intact bilaterally and conjunctivae normal CONJUNCTIVA: Yes conjunctivae normal P UPIL: Yes Equal, round and reactive pupils present Neck/C-Spine: COMMON NORMALS: full ROM, supple and no JVD Resp: COMMON NORMALS: normal respiratory effort, No retractions, No use of accessory muscles and clear to auscultation bilaterally AUSCULTATION: clear to auscultation bilaterally Cardio: COMMON NORMALS: no JVD, regular rate, regular rhythm, No clicks present (Cardio), No murmurs present (Cardio) and No rub (Cardio) RATE: r egular rate RHYTHM: regular rhythm GI: COMMON NORMALS: Normal to inspection, nondistended, normoactive bowel sounds present, Soft to palpation and non-tender AUSCULTATION: Yes normoactive bowel sounds PALPATION: Yes Soft to palpation RECTAL EXAM: d eferred : COMMON NORMALS: Yes no CVA tenderness BLADDER/KIDNEY EXAM: Yes no CVA tenderness Back/Pelvis: COMMON NORMALS: no CVA tenderness, thoracic and lumbar spine normal to inspection, no thoracic nor lumbar tenderness and thoraco-lumbar ROM normal Extremity: COMMON NORMALS: normal to inspection, full ROM and capillary refill normal Neuro: COMMON NORMALS: patient oriented x3, CN's II-XII intact bilaterally, moves all extremities, no focal motor deficits and no sensory deficits noted SENSORIUM/ORIENTATION: Yes oriented to person, Yes oriented to place and Yes oriented to time Psych: COMMON NORMALS: mental status grossly normal and Normal thought process present THOUGHT PROCESS: Normal thought process present Skin: COMMON NORMALS: no rashes or lesions noted GENERAL SKIN EXAM: no rashes or lesions noted Course 2 Vital Signs: Vital signs: Vital Signs Temperature 96.8 F L 06/26/24 20:37 Pulse Rate 63 06/27/24 00:07 Respiratory Rate 14 06/26/24 20:37 Blood Pressure 111/96 06/27/24 00:07 Pulse Oximetry 91 06/27/24 00:07 Oxygen Delivery Me thod Room Air 06/26/24 23:00 MDM - Syncope Medical Decision Making Who is presenting with presyncopal episode reported today. Symptom-free at time of examination, examination was normal. She did recently start citalopram for weight gain, I suspect medication side effect and will have her follow-up with primary care to discuss this. Told her to hold this medication until she follows up to avoid any issues, did give her return precautions to which she verbalized understanding. Lab Data 06/26/24 20:15 06/26/24 20:15 Laboratory Results WBC 7.14 10^3/uL (3.29-11.43) 06/26/24 20:15 RBC 4.16 10^6/uL (3.85-5.65) 06/26/24 20:15 Hgb 12.20 g/dL (11.27-16.99) 06/26/24 20:15 Hct 37.5 % (36-47) 06/26/24 20:15 MCV 90.1 fl (85-98) 06/26/24 20:15 MCH 29.3 pg (27-33) 06/26/24 20:15 MCHC 32.5 g/dL (30-55) 06/26/24 20:15 RDW 13.7 % (12.1-15.1) 06/26/24 20:15 Plt Count 289 10^3/cmm (157-399) 06/26/24 20:15 MPV 11.0 fL (7.4-10.4) H 06/26/24 20:15 Neut % (Auto) 65.8 % 06/26/24 20:15 Lymph % (Auto) 21.8 % 06/26/24 20:15 [place] % (Auto) 7.8 % 06/26/24 20:15 Eos % (Auto) 3.5 % 06/26/24 20:15 Baso % (Auto) 1.0 % 06/26/24 20:15 Neut # (Auto) 4.69 10^3/uL (1.8-7.7) 06/26/24 20:15 Lymph # (Auto) 1.6 10^3/uL (0.8-4.8) 06/26/24 20:15 [place] # (Auto) 0.6 10^3/uL (0.2-0.9) 06/26/24 20:15 Eos # (Auto) 0.3 10^3/uL (0.0-0.8) 06/26/24 20:15 Baso # (Auto) 0.1 10^3/uL (0.0-0.1) 06/26/24 20:15 Nucleated RBC % (auto) 0 % 06/26/24 20:15 Nucleated RBCs # 0.0 /100WBC 06/26/24 20:15 Sodium 138 mmol/L (136-145) 06/26/24 20:15 Potassium 4.0 mmol/L (3.5-5.1) 06/26/24 20:15 Chloride 104 mmol/L (98-107) 06/26/24 20:15 Carbon Dioxide 23 mmol/L (22-29) 06/26/24 20:15 Anion Gap 15.0 (5-19) 06/26/24 20:15 BUN 10 mg/dL (6-20) 06/26/24 20:15 Creatinine 0.6 mg/dL (0.5-0.9) 06/26/24 20:15 GFR Calculation 115.9 mL/min (90-130) 06/26/24 20:15 Glucose 96 mg/dL (65-115) 06/26/24 20:15 Calculated Osmolality 285 mOsm/kg (285-295) 06/26/24 20:15 Calcium 9.1 mg/dL (8.5-10.5) 06/26/24 20:15 Total Bilirubin 0.4 mg/dL (0.15-1.2) 06/26/24 20:15 AST 16 U/L (0-32) 06/26/24 20:15 ALT 12 U/L (0-33) 06/26/24 20:15 Alkaline Phosphatase 81 U/L (35-105) 06/26/24 20:15 Total Protein 7.6 g/dL (6.6-8.7) 06/26/24 20:15 Albumin 4.6 g/dL (3.5-5.2) 06/26/24 20:15 Globulin 3.0 g/dL (1.3-4.6) 06/26/24 20:15 HCG, Qual Negative (Negative) 06/26/24 20:15 No radiology studies performed this visit Discharge Plan Discharge Patient Disposition: Home Clinical Impression: Medication side effect Condition: Stable Prescriptions: No Action citalopram 10 mg tablet 10 mg PO DAILY Qty: 30 6RF ketorolac 10 mg tablet 10 mg PO TID PRN (Reason: pain) Qty: 10 0RF Discharge Orders: Discharge ED (Routine); Ordered 06/27/24 Ordered By: Juancarlos Beltrán Referrals: Ilya Almanza MD [Primary Care Provider] - Activity Restrictions/Additional Instructions: Call Dr. Almanza's office in the morning to discuss your ED visit and to schedule follow-up appointment to discuss medications. Please return with any new or worsening. Stand Alone Forms: Work/School Release Print Language: Kenyan Coding Level of Care Code ED Stationary Engineer Apprentice for Cecilia Pierre
== END 2024-06-27 00:08 | disposition home or self-care (01) ==
PROVIDERS: Emergency Medicine; Emergency Provider Physician Assistant; PCP Family Medicine
DX: R42 Dizziness and giddiness (principal); T43.225A Adverse effect of selective serotonin reuptake inhibitors, initial encounter
CPT/HCPCS: 80053; 84703; 85025; 93005; 99284

== ENCOUNTER → 2024-06-27 14:03 | Outpatient (BNVA) | payer BC, MEDICAID, SELFPAY | PROVIDERS: PCP Family Medicine; Visit Provider Family Medicine | DX: F41.1 Generalized anxiety disorder (principal) | CPT/HCPCS: 84439; 84443 ==

== ENCOUNTER 2024-07-03 10:11 | Emergency (ER) | payer BC, MEDICAID, SELFPAY ==
[2024-07-03] VITALS (11 sets, daily range): BP systolic 92–105; BP diastolic 54–65; PULSE 51–72; RESP 16; TEMP 36.8; O2SAT 95–100; BMI 17.5
--- NOTE | 2024-07-03 11:05 | ECG_ITS ---
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 Measurements Intervals [place] Rate: 59 P: 70 CT: 168 QRS: 81 QRSD: 86 T: 64 QT: 389 QTc: 387 Interpretive Statements SINUS BRADYCARDIA LEFT ATRIAL ENLARGEMENT [-0.15mV P-WAVE IN V1/V2] POSSIBLE RIGHT VENTRICULAR CONDUCTION DELAY [RSR (QR) IN V1/V2] Compared to ECG 06/26/2024 23:15:32 Atrial abnormality now present Sinus arrhythmia no longer present Electronically Signed On 07-03-2024 21:31:50 CDT by Hunter Strickland M.D. [email or web address]
--- NOTE | 2024-07-03 11:27 | W.ED.SYNCOPE ---
HPI - Syncope General: Chief Complaint: Syncope Stated Complaint: passing out Time Seen by Provider: 07/03/24 11:17 History of Present Illness: 33-year-old female presents to the emergency room With complaint of a syncopal episode. She was seen a week ago in the ER and then in follow-up that same day by her primary care doctor for syncopal episodes. She reports that it seems to be correlated with when she started taking citalopram. Her primary care doctor had started her on midodrine last week. She states initially it seemed to help but now is not helping as much. She denies any full loss of consciousness with these episodes she is gets very dizzy lightheaded will have near syncopal like events. She is also had recently been started on antibiotics by her primary care doctor for a possible sinus infection she got some loose stools with those but that has begun to resolve since she completed the course of antibiotics. She denies any hematochezia melena hematemesis or coffee-ground emesis. She denies any sharp abdominal pain or chest pain. No dysuria urgency or frequency. No other new [id number] medications. She is awake and alert throughout these episodes she has not had any loss of bowel or bladder control she is not noticed anything that precipitates or relieves these events. They have happened at times when she is standing also at times when she is lying down without any change in body position. Associated symptoms: Deny abdominal pain, chest pain or fever(s) Related Data Previous Rx's ?Medication ?Instructions ?Recorded ketorolac 10 mg tablet 10 mg PO TID PRN pain #10 tabs 06/10/24 citalopram 10 mg tablet 10 mg PO DAILY #30 tabs 06/20/24 amoxicillin 875 mg-potassium 1 tab PO BID #20 tabs 06/27/24 clavulanate 125 mg tablet midodrine 2.5 mg tablet 2.5 mg PO BID #60 tabs 06/27/24 Allergies Allergy/AdvReac Type Severity Reaction Status Date / Time influenza virus vaccine, Allergy Unknown Verified 06/26/24 20:42 specific Sulfa (Sulfonamide Allergy ALGY-Hives Verified 06/26/24 20:42 Antibiotics) Review of Systems Const: Denies: fever(s) or chills Card: Denies: chest pain Resp: Denies: dyspnea GI: Denies: abdominal pain : Denies: dysuria, urinary frequency or urinary urgency Musc: Denies: neck pain or back pain Skin/Breast: Denies: rash PFSH ED PFSH: Medical History Abdominal pain Menorrhagia Uterine fibroid Vertigo Menorrhagia Vaccination reaction Patient reports bad reaction to flu shot around 2017 requiring going to the hospital Post depression Generalized anxiety disorder Repeated concussion of brain Mild intermittent asthma Post-traumatic stress disorder, chronic Surgical History History of total abdominal hysterectomy Status post tubal ligation 04/15/2021--bilateral total salpingectomy for sterilization performed at time of second by Dr. Holman at [facility]. Pathology showed-----> complete tubes with full [id number] malignancy History of delivery x 2 06/16/2016 - Low transverse section. Diagnosis: Cephalopelvic disproportion with contracted inlet. Performed by Dr. Roberto Kuo at [facility] in [place], [place]. Documented low transverse section with 2 layer closure of uterine incision. Right-sided inferior extension of the uterine incision. 04/15/2021--repeat low transverse delivery with tubal ligation by Dr. Holman at [facility] when patient presented in labor History of laparoscopy 02/18/2017: Hysteroscopy, dilation and curettage, diagnostic laparoscopy with lysis of adhesions on 02/18/2017 for chronic pelvic pain done by Dr Holman at [facility]. On hysteroscopy no abnormalities identified-curettage done-pathology pending. On laparoscopy filmy adhesions of the colon onto the left lower quadrant which was taken down. No other abnormalities noted. Uterus, tubes and ovaries appeared within normal limits. No signs of endometriosis. -Pathology on D&C showed polypoid endometrial mucosal fragments with weakly proliferative endometrium and scattered chronic inflammatory cells-mild chronic endometritis. History of tonsillectomy and adenoidectomy as an - Performed in [place] History of knee surgery 2013 - Right [place], [place] History of left knee surgery 2012 - [place], [place] H/O myringotomy with tube placement - x2-as an infant: performed in [place] Family History Grandfather Cancer Liver cancer Family/Other Cancer Grandmother Hypertension Denies family history of Colon cancer Ovarian cancer Diabetes Heart disease Hypercholesteremia Breast cancer Uterine cancer Thyroid disease Stroke Social History Smoking and tobacco/nicotine status: former use of tobacco/nicotine Alcohol intake: never Substance/Drug Use: never Additional social history: In [employer] currently Current occupation: [employer] in [employer] Physical Exam Const: GENERAL APPEARANCE: cooperative ORIENTATION/CONSCIOUSNESS: Yes awake, Yes oriented to person, Yes oriented to place and Yes oriented to time HENMT: COMMON NORMALS: normocephalic, atraumatic and hearing grossly normal bilaterally HEAD & SCALP: normocephalic and atraumatic Resp: COMMON NORMALS: normal respiratory effort, No retractions, No use of accessory muscles and clear to auscultation bilaterally AUSCULTATION: clear to auscultation bilaterally Cardio: COMMON NORMALS: regular rate, regular rhythm and No murmurs present (Cardio) RATE: regular rate RHYTHM: regular rhythm GI: COMMON NORMALS: Soft to palpation and No hepatosplenomegaly present AUSCULTATION: Yes normoactive bowel sounds PALPATION: Yes Soft to palpation, No Tenderness to palpation present (GI), No Guarding due to palpation present (GI) and Yes No hepatosplenomegaly present Extremity: COMMON NORMALS: normal to inspection, capillary refill normal, no clubbing, cyanosis or edema, no calf tenderness and no pedal edema Neuro: SENSORIUM/ORIENTATION: Yes oriented to person, Yes oriented to place and Yes oriented to time Skin: COMMON NORMALS: no rashes or lesions noted GENERAL SKIN EXAM: no rashes or lesions noted Course Vital Signs: Vital signs: Vital Signs Temperature 98.2 F 07/03/24 10:19 Pulse Rate 62 07/03/24 14:07 Respiratory Rate 16 07/03/24 10:19 Blood Pressure 94/61 07/03/24 14:07 Pulse Oximetry 96 07/03/24 14:07 Oxygen Delivery Me thod Room Air 07/03/24 13:48 MDM - Syncope Medical Decision Making Orthostasis on vitals. Patient's symptoms and blood pressures orthostatics have improved after IV fluid she is given 2 L of fluid her urine is very concentrated show equal laboratory squamous cells and white blood cells she is not currently having any dysuria or other UTI symptoms. Did not treat. Will discharge patient home encourage regular fluid intake set up for outpatient 72-hour Holter monitor and echocardiogram follow-up with her primary care doctor Lab Data 07/03/24 11:25 07/03/24 11:25 Laboratory Results WBC 5.38 10^3/uL (3.29-11.43) 07/03/24 11: RBC 4.29 10^6/uL (3.85-5.65) 07/03/24 11:25 Hgb 12.80 g/dL (11.27-16.99) 07/03/24 11: Hct 38.8 % (36-47) 07/03/24 11: MCV 90.4 fl (85-98) 07/03/24 11:25 MCH 29.8 pg (27-33) 07/03/24 11: MCHC 33.0 g/dL (30-55) 07/03/24 11:25 RDW 13.4 % (12.1-15.1) 07/03/24 11: Plt Count 278 10^3/cmm (157-399) 07/03/24 11: MPV 10.3 fL (7.4-10.4) 07/03/24 11:25 Neut % (Auto) 57.4 % 07/03/24 11:25 Lymph % (Auto) 28.8 % 07/03/24 11:25 [place] % (Auto) 9.1 % 07/03/24 11:25 Eos % (Auto) 3.0 % 07/03/24 11:25 Baso % (Auto) 1.7 % 07/03/24 11:25 Neut # (Auto) 3.09 10^3/uL (1.8-7.7) 07/03/24 11:25 Lymph # (Auto) 1.6 10^3/uL (0.8-4.8) 07/03/24 11:25 [place] # (Auto) 0.5 10^3/uL (0.2-0.9) 07/03/24 11:25 Eos # (Auto) 0.2 10^3/uL (0.0-0.8) 07/03/24 11:25 Baso # (Auto) 0.1 10^3/uL (0.0-0.1) 07/03/24 11:25 Nucleated RBC % (auto) 0 % 07/03/24 11:25 Nucleated RBCs # 0.0 /100WBC 07/03/24 11:25 Sodium 136 mmol/L (136-145) 07/03/24 11:25 Potassium 3.7 mmol/L (3.5-5.1) 07/03/24 11:25 Chloride 101 mmol/L (98-107) 07/03/24 11:25 Carbon Dioxide 23 mmol/L (22-29) 07/03/24 11:25 Anion Gap 15.7 (5-19) 07/03/24 11:25 BUN 9 mg/dL (6-20) 07/03/24 11:25 Creatinine 0.6 mg/dL (0.5-0.9) 07/03/24 11:25 GFR Calculation 115.9 mL/min (90-130) 07/03/24 11:25 Glucose 98 mg/dL (65-115) 07/03/24 11:25 Calculated Osmolality 281 mOsm/kg (285-295) L 07/03/24 11:25 Calcium 9.1 mg/dL (8.5-10.5) 07/03/24 11:25 Total Bilirubin 0.7 mg/dL (0.15-1.2) 07/03/24 11:25 AST 12 U/L (0-32) 07/03/24 11:25 ALT 8 U/L (0-33) 07/03/24 11:25 Alkaline Phosphatase 79 U/L (35-105) 07/03/24 11:25 Total Protein 7.3 g/dL (6.6-8.7) 07/03/24 11:25 Albumin 4.6 g/dL (3.5-5.2) 07/03/24 11:25 Globulin 2.7 g/dL (1.3-4.6) 07/03/24 11:25 HCG, Qual Negative (Negative) 07/03/24 11:25 Urine Color Yellow (Yellow) 07/03/24 12:45 Urine Appearance Slightly cloudy (CLEAR) 07/03/24 12:45 Urine pH 6 (5-7) 07/03/24 12:45 Ur Specific [place] 1.025 (1.005-1.030) 07/03/24 12:45 Urine Protein Trace (Negative) H 07/03/24 12:45 Urine Glucose (UA) Norm (Normal) 07/03/24 12:45 Urine Ketones Negative (Negative) 07/03/24 12:45 Urine Blood Trace (Negative) A 07/03/24 12:45 Urine Nitrate Negative (Negative) 07/03/24 12:45 Urine Bilirubin Neg (Negative) 07/03/24 12:45 Urine Urobilinogen Norm mg/dL (Negative) 07/03/24 12:45 Ur Leukocyte Esterase 1+ (Negative) A 07/03/24 12:45 Urine RBC 3-5 /hpf (0-2) 07/03/24 12:45 Urine WBC 11-20 /hpf (0-5) H 07/03/24 12:45 Ur Squamous Epith Cells 11-20 /hpf (0-5) H 07/03/24 12:45 Calcium Oxalate Crystal 5-10 /hpf H 07/03/24 12:45 Amorphous Sediment Not Reportable 07/03/24 12:45 Urine Bacteria None seen /hpf (NONE) 07/03/24 12:45 Hyaline Casts 3.30 /lpf 07/03/24 12:45 Urine Mucus 3+ /hpf 07/03/24 12:45 All radiology interpretation(s) finalized by discharge Discharge Plan Discharge Patient Disposition: Home Clinical Impression: Postural dizziness with near syncope Condition: Stable Prescriptions: No Action citalopram 10 mg tablet 10 mg PO DAILY Qty: 30 6RF amoxicillin-pot clavulanate 875-125 mg tablet 1 tab PO BID Qty: 20 1RF midodrine 2.5 mg tablet 2.5 mg PO BID Qty: 60 2RF Rx Instructions: do not give last dose of day after 6PM or within 4 hrs of bedtime ketorolac 10 mg tablet 10 mg PO TID PRN (Reason: pain) Qty: 10 0RF Discharge Orders: Discharge ED (Routine); Ordered 07/03/24 Ordered By: Dionicio Cooper Referrals: Ilya Almanza MD [Primary Care Provider] - Discharge Diet: Usual diet Discharge Activity: Increase activity as tolerated Patient Instructions: Opioid Safety, Pain Management Activity Restrictions/Additional Instructions: [facility]. It is very important that you follow up as instructed or that you return to the Emergency Department should you have concerns or if your condition changes or worsens in any way. You are seen in the emergency room complaints of near syncopal episodes. Your blood pressure did drop when you first stood in the emergency room this improved after you are given IV fluids. Recommend maintaining this regular fluid intake. Will set you up for an outpatient echocardiogram and follow-up with Dr. Almanza within the next week. Print Language: Macedonian Coding Level of Care Code ED Registered Dietitian for Cecilia Pierre
[2024-07-03] MEDS: sodium chloride 0.9% 1,000 ML 999 ML IV ×2 (11:31→12:57)
[2024-07-03 11:46] LABS: Basophils # 0.1 10^3/uL (0.0-0.1); Basophils % 1.7 %; Eosinophils # 0.2 10^3/uL (0.0-0.8); Hematocrit 38.8 % (36-47); Lymphocytes # 1.6 10^3/uL (0.8-4.8); Lymphocytes % 28.8 %; Mean Corpuscular Hemoglobin 29.8 pg (27-33); Mean Corpuscular Volume 90.4 fl (85-98); Mean Platelet Volume 10.3 fL (7.4-10.4); Monocytes # 0.5 10^3/uL (0.2-0.9); Monocytes % 9.1 %; Neutrophils # 3.09 10^3/uL (1.8-7.7); Neutrophils % 57.4 %; Nucleated Red Blood Cells % 0 %; Platelet Count 278 10^3/cmm (157-399); Red Blood Count 4.29 10^6/uL (3.85-5.65); Red Cell Distribution Width 13.4 % (12.1-15.1); White Blood Count 5.38 10^3/uL (3.29-11.43)
[2024-07-03 11:56] LABS: Alanine Aminotransferase 8 U/L (0-33); Albumin Level 4.6 g/dL (3.5-5.2); Alkaline Phosphatase 79 U/L (35-105); Anion Gap 15.7 (5-19); Aspartate Amino Transferase 12 U/L (0-32); Blood Urea Nitrogen 9 mg/dL (6-20); Calcium 9.1 mg/dL (8.5-10.5); Carbon Dioxide 23 mmol/L (22-29); Chloride 101 mmol/L (98-107); Creatinine Clr Calc Pharmacy 109.0686; Globulin 2.7 g/dL (1.3-4.6); Glomerular Filtration Rate 115.9 mL/min (90-130); Glucose 98 mg/dL (65-115); Osmolality Calculated 281 mOsm/kg (285-295); Potassium 3.7 mmol/L (3.5-5.1); Sodium 136 mmol/L (136-145); Total Bilirubin 0.7 mg/dL (0.15-1.2); Total Protein 7.3 g/dL (6.6-8.7)
[2024-07-03 12:04] LABS: HCG, Serum Qual Negative (Negative)
[2024-07-03 12:56] LABS: Bacteria Urine None Seen /hpf
[2024-07-03 13:30] LABS: Add Urine Microscopic? YES; Bilirubin Urine Neg (Negative); Blood Urine Trace (Negative); Glucose Urine UA Norm (Normal); Ketones Urine Negative (Negative); Leukocyte Esterase Urine 1+ (Negative); Nitrate Urine Negative (Negative); Protein Urine Trace (Negative); Specific Gravity, Urine 1.025 (1.005-1.030); UA Slide Review UA Slide Review Perf; Urine Appearance Slightly Cloudy (CLEAR); Urine Color Yellow (Yellow); Urobilinogen Urine Norm (Negative); pH Urine 6 (5-7)
[2024-07-03 13:32] LABS: Add Urine Culture? No; Mucus Urine 3+ /hpf
--- NOTE | 2024-07-03 14:27 | DCPLANNER ---
messaged heart care for holter
--- NOTE | 2024-07-03 18:46 | DCPLANNER ---
faxed outpatient echo order to scheduling
== END 2024-07-03 14:08 | disposition home or self-care (01) ==
PROVIDERS: Emergency Medicine; Emergency Provider Family Medicine; PCP Family Medicine
DX: R55 Syncope and collapse (principal); R42 Dizziness and giddiness; Z87.891 Personal history of nicotine dependence
CPT/HCPCS: 36415; 80053; 81001; 84703; 85025; 93005; 96360; 96361; 99284; J7030

== ENCOUNTER 2024-07-13 10:15 | Outpatient (CLI) | payer BC, MEDICAID, SELFPAY ==
--- NOTE | 2024-07-13 10:15 | USCV_ITS ---
Emerita Weston Age: 33 Gender: F : 1990 Exam Date: 07/13/2024 10:31 Ordering Phys: Ilya Almanza MD Technologist: JUSTYNA Exam Location[place] [facility] [place]: Low BP BP: 134 / 70 HR: 65 Rhythm: Sinus Technical Quality: Adequate MEASUREMENTS (Male / Female) Normal Values 2D ECHO LV Diastolic Diameter PLAX 3.8 cm 4.2 - 5.9 / 3.9 - 5.3 cm IVS Diastolic Thickness 1.0 cm 0.6 - 1.0 / 0.6 - 0.9 cm IVS Systolic Thickness 1.2 cm LVPW Diastolic Thickness 0.9 cm 0.6 - 1.0 / 0.6 - 0.9 cm LVPW Systolic Thickness 0.9 cm LVOT Diameter 1.4 cm LV Ejection Fraction 2D Teich 72.0 % LV Ejection Fraction MOD 4C 80.4 % LV Ejection Fraction MOD 2C 72.2 % LV Ejection Fraction 2C AL 71.7 % LA Diameter 2.1 cm RA Systolic Volume 4C AL 16.0 ml RA Systolic Volume 4C MOD 15.8 ml LA Sys Volume AL 30.3 cm cubed LA Sys Volume Index AL 20.6 cm cubed/m squared Aorta at Sinotubular Diameter 1.8 cm IVC Diameter 1.4 cm M-MODE LA Ao Ratio MM 1.6 AV Cusp Separation MM 1.2 cm DOPPLER AV Peak Velocity 112.0 cm/s LVOT Peak Velocity 99.0 cm/s AV Area Cont Eq vti 1.4 cm squared AV Area Cont Eq pk 1.4 cm squared MV Peak Velocity 104.0 cm/s MV Area PHT 3.8 cm squared Mitral E to A Ratio 1.4 TR Peak Velocity 111.0 cm/s TR Peak Gradient 4.9 mmHg TV Peak E Velocity 104.0 cm/s PV Peak Velocity 95.0 cm/s FINDINGS Left Ventricle Normal LV size and ejection fraction of 71%. No gross wall motion abnormalities. Right Ventricle Normal RV size and ejection fraction. Right Atrium Normal right atrial size. Left Atrium Normal left atrial size. Mitral Valve Appears to have mild bileaflet prolapse. Because of the technical difficulties, this cannot be ascertained Aortic Valve The leaflets could not be visualized well. Possibly tricuspid Tricuspid Valve No gross abnormalities noted Pulmonic Valve Pulmonic valve not well visualized. Pericardium No pericardial effusion. Aorta Normal aortic annulus size. IVC Normal inferior vena cava. CONCLUSIONS Normal LV size and ejection fraction of 71%. No gross wall motion abnormalities. The mitral valve appears to have mild bileaflet prolapse. But because of the technical difficulties, this cannot be ascertained. The aortic valve, possibly tricuspid. The leaflets could not be visualized well. There is no pericardial effusion. Technically difficult study because of the poor ultrasonic window. Dr Hunter Strickland MD [facility] (Electronically Signed) Final Date: 13 July 2024 22:16 S
== END 2024-07-13 10:16 | disposition home or self-care (01) ==
PROVIDERS: PCP Family Medicine; Visit Provider Family Medicine
DX: I95.9 Hypotension, unspecified (principal); R93.1 Abnormal findings on diagnostic imaging of heart and coronary circulation
CPT/HCPCS: 93306